=== PATIENT | female | born 1955 | race Two or more races ===

== ENCOUNTER 2020-11-10 12:22 | Outpatient (REF) | payer MEDICAID, SELFPAY ==
--- NOTE | ~2020-11-10 | MM_ITS ---
EXAMINATION: MM SCREENING DIGITAL BREAST TOMOSYNTHESIS, BILATERAL CLINICAL INFORMATION: Screening. Asymptomatic. The lifetime risk of breast cancer based on the Tyrer-Cuzick Model is 5%. COMPARISON: Mammography: 03/19/2019, 03/13/2018, 05/10/2016 TECHNIQUE: Digital breast tomosynthesis is performed in both the craniocaudal and mediolateral oblique views along with computer-aided detection (CAD). Synthesized 2D images are generated from the tomosynthesis. FINDINGS: The breasts are almost entirely fatty (ACR BI-RADS breast composition Category a). There are no significant masses, abnormal calcifications, or other abnormalities. Background stromal markings are stable. No significant changes. MM/MM tomosynthesis screening BI IMPRESSION: No mammographic evidence of malignancy. ASSESSMENT: BI-RADS 1: Negative RECOMMENDATION: Routine annual mammography screening. This patient's information was entered into a reminder system with a target due date for their next mammogram.
== END 2020-11-10 12:23 | disposition home or self-care (01) ==
LOC: HO.MAMMO 12:22
PROVIDERS: Visit Provider Internal Medicine
DX: Z12.31 Encounter for screening mammogram for malignant neoplasm of breast (principal)
CPT/HCPCS: 77063; 77067

== ENCOUNTER → 2020-12-08 13:21 | Outpatient (BNVA) | payer MEDICAID, SELFPAY | PROVIDERS: PCP General Practice; Referring Provider General Practice; Visit Provider Internal Medicine | DX: I25.5 Ischemic cardiomyopathy (principal); I25.10 Atherosclerotic heart disease of native coronary artery without angina pectoris; I10 Essential (primary) hypertension; E11.8 Type 2 diabetes mellitus with unspecified complications; F17.200 Nicotine dependence, unspecified, uncomplicated; Z79.899 Other long term (current) drug therapy; Z71.6 Tobacco abuse counseling | CPT/HCPCS: 93005; 99202 ==

== ENCOUNTER 2021-09-01 10:31 | Day surgery (SDC) | payer MEDICAID, SELFPAY ==
[2021-08-26 10:35] VITALS: BMI 33.2
--- NOTE | 2021-08-31 10:44 | P.CONAN_ITS ---
Documented by User: Alba Torres NP 08/31/21 10:50 HPI - Anesthesia Eval Consult details Narrative: 65yo F for Bilateral Horizontal Eye Muscle Recession/Resection,2 muscles right eye, Left Horizontal eye muscle recession/resection,1 muscle left eye Cardiac cleared at [facility] assuming no new cardiac complaints PCP cleared [facility] Active Problems Active Problems: All Active Problems (Updated 06/16/21 @ 11:41 by Chel Powell, RN) Type 2 diabetes mellitus with unspecified complications (Acute) Essential hypertension (Acute) Atherosclerotic cardiovascular disease (Acute) Ischemic cardiomyopathy (Acute) Past Medical History Medical History (Updated 06/16/21 @ 11:41 by Chel Powell RN) Anemia Asthma Atherosclerotic cardiovascular disease CHF (congestive heart failure) CKD (chronic kidney disease) CVA (cerebral vascular accident) Depression Elevated cholesterol Essential hypertension Ischemic cardiomyopathy Neuropathy Type 2 diabetes mellitus with unspecified complications Vitamin B 12 deficiency Surgical History Surgical History (Updated 06/16/21 @ 11:41 by Chel Powell RN) History of bilateral cataract extraction Hx of cardiac catheterization Social History Social History (Updated 12/08/20 @ 14:46 by Osvaldo Mcbride MD) Are you a primary multi care technician to a significant other at home: No Do you presently have visiting nurse or other home services: No Patient Tobacco Use Status: Former Tobacco user Quit Date: 04/2021 Tobacco use type: Cigarette Use of substances other than those prescribed or required for medical reasons: No Have you been hit, kicked, punched, or otherwise hurt by someone within the past year? If so, by whom?: No Are you DNR?: No Advance Directives: No Advance Directives Information Provided: Yes Advance Directives on File: No Recently lost weight without trying: No Eating poorly because of decreased appetite: No Nutrition Risks: No Nutritional Risk Meds Allergies Allergy/AdvReac Type Severity Reaction Status Date / Time No Known Drug Allergies Allergy Unknown U Verified 06/16/21 11:43 Home Medications Medication Instructions Recorded Confirmed Last Taken Type amlodipine 10 mg 10 mg PO DAILY 12/08/20 08/26/21 Unknown History tablet aspirin 81 mg 81 mg PO DAILY 12/08/20 08/26/21 Unknown History tablet,delayed release (Adult Low Dose Aspirin) atorvastatin 40 40 mg PO DAILY 12/08/20 08/26/21 Unknown History mg tablet bupropion HCl 150 150 mg PO DAILY 12/08/20 08/26/21 Unknown History mg tablet,12 hr sustained-release carvedilol 25 mg 25 mg PO BID 12/08/20 08/26/21 Unknown History tablet escitalopram 5 mg PO DAILY 12/08/20 08/26/21 Unknown History oxalate 5 mg tablet folic acid 1 mg 1 mg PO DAILY 12/08/20 08/26/21 Unknown History tablet furosemide 20 mg 20 mg PO DAILY 12/08/20 08/26/21 Unknown History tablet gabapentin 300 mg 300 mg PO 12/08/20 08/26/21 Unknown History capsule BEDTIME metformin 1,000 1,000 mg PO BID 12/08/20 08/26/21 Unknown History mg tablet ascorbic acid 500 mg PO DAILY 06/16/21 08/26/21 Unknown History (vitamin C) 500 mg tablet (Vitamin C) cyanocobalamin 1,000 mcg PO 06/16/21 08/26/21 Unknown History (vitamin B-12) DAILY 1,000 mcg tablet (Vitamin B-12) docusate sodium 100 mg PO DAILY 06/16/21 08/26/21 Unknown History 100 mg capsule (Colace) ferrous sulfate 325 mg PO DAILY 06/16/21 08/26/21 Unknown History 325 mg (65 mg iron) tablet insulin glargine 20 unit SUBCUT 06/16/21 08/26/21 Unknown History 100 unit/mL (3 QPM mL) subcutaneous pen (Lantus Solostar U-100 Insulin) omeprazole 20 mg 20 mg PO DAILY 06/16/21 08/26/21 Unknown History capsule,delayed release trazodone 50 mg 1 - 2 tab PO 08/26/21 08/26/21 Unknown History tablet BEDTIME Exam Exam Date and Time: August 31, 2021 1044 Height,Weight and Vital Signs: Height 5 ft 1 in Weight 79.832 kg Narrative Narrative: EKG 12/2020 sinus rhythm at 73/Min; no significant ST-T changes and otherwise unremarkable. ECHO 05/2019 Mildly dilated LV with mod LV systolic dysfunction with pseudonormal filling pattern. EF 35-40% Mildly dilated LA Normal cardiac valvular dopplers Normal RV systolic pressure No pericardial effusion Assessment and Plan Assessment Anesthesia Assessment: Chart Reviewed Documented by User: Adrián Balderas MD 09/01/21 12:04 [facility] Past Medical History Medical History (Updated 06/16/21 @ 11:41 by Chel Powell, RN) Anemia Asthma Atherosclerotic cardiovascular disease CHF (congestive heart failure) CKD (chronic kidney disease) CVA (cerebral vascular accident) Depression Elevated cholesterol Essential hypertension Ischemic cardiomyopathy Neuropathy Type 2 diabetes mellitus with unspecified complications Vitamin B 12 deficiency Family History Family history of problems with anesthesia: No Surgical History Surgical History (Updated 06/16/21 @ 11:41 by Chel Powell, JOSEF) History of bilateral cataract extraction Hx of cardiac catheterization History of Problems with Anesthesia: No Social History Social History (Updated 12/08/20 @ 14:46 by Osvaldo Mcbride MD) Are you a primary multi care technician to a significant other at home: No Do you presently have visiting nurse or other home services: No Patient Tobacco Use Status: Former Tobacco user Quit Date: 04/2021 Tobacco use type: Cigarette Use of substances other than those prescribed or required for medical reasons: No Have you been hit, kicked, punched, or otherwise hurt by someone within the past year? If so, by whom?: No Are you DNR?: No Advance Directives: No Advance Directives Information Provided: Yes Advance Directives on File: No Recently lost weight without trying: No Eating poorly because of decreased appetite: No Nutrition Risks: No Nutritional Risk Meds Allergies Allergy/AdvReac Type Severity Reaction Status Date / Time No Known Drug Allergies Allergy Unknown U Verified 06/16/21 11:43 Home Medications Medication Instructions Recorded Confirmed Last Taken Type amlodipine 10 mg 10 mg PO DAILY 12/08/20 08/26/21 Unknown History tablet aspirin 81 mg 81 mg PO DAILY 12/08/20 08/26/21 Unknown History tablet,delayed release (Adult Low Dose Aspirin) atorvastatin 40 40 mg PO DAILY 12/08/20 08/26/21 Unknown History mg tablet bupropion HCl 150 150 mg PO DAILY 12/08/20 08/26/21 Unknown History mg tablet,12 hr sustained-release carvedilol 25 mg 25 mg PO BID 12/08/20 08/26/21 Unknown History tablet escitalopram 5 mg PO DAILY 12/08/20 08/26/21 Unknown History oxalate 5 mg tablet folic acid 1 mg 1 mg PO DAILY 12/08/20 08/26/21 Unknown History tablet furosemide 20 mg 20 mg PO DAILY 12/08/20 08/26/21 Unknown History tablet gabapentin 300 mg 300 mg PO 12/08/20 08/26/21 Unknown History capsule BEDTIME metformin 1,000 1,000 mg PO BID 12/08/20 08/26/21 Unknown History mg tablet ascorbic acid 500 mg PO DAILY 06/16/21 08/26/21 Unknown History (vitamin C) 500 mg tablet (Vitamin C) cyanocobalamin 1,000 mcg PO 06/16/21 08/26/21 Unknown History (vitamin B-12) DAILY 1,000 mcg tablet (Vitamin B-12) docusate sodium 100 mg PO DAILY 06/16/21 08/26/21 Unknown History 100 mg capsule (Colace) ferrous sulfate 325 mg PO DAILY 06/16/21 08/26/21 Unknown History 325 mg (65 mg iron) tablet insulin glargine 20 unit SUBCUT 06/16/21 08/26/21 Unknown History 100 unit/mL (3 QPM mL) subcutaneous pen (Lantus Solostar U-100 Insulin) omeprazole 20 mg 20 mg PO DAILY 06/16/21 08/26/21 Unknown History capsule,delayed release trazodone 50 mg 1 - 2 tab PO 08/26/21 08/26/21 Unknown History tablet BEDTIME Exam Airway Mallampati Class: II TM Dist: >3cm Neck ROM: Full Denture: Upper and Lower Loose/Missing/Broken Teeth: Yes Heart: [id number] Lungs: cta b/l Assessment and Plan Assessment Anesthesia Assessment: Anesthesia Plan Discussed Final Anesthetic Review Family History of Problems with Anesthesia: No History of Problems with Anesthesia: No NPO: Yes ASA Class: III Final Preanesthetic Review: No Changes in Pt Med Stat, Meds/Allgs Chart Reviewed, Consent Obtained/Reviewed and Anes Risks/Benef Reviewed Patient Risk: Intermediate Procedure Risk: Low Assessment/Block/Sedation in SS: Assess/Block/Sedation-SS Anesthetic Plan Anesthetic Plan: GA and Agree w/ Assess. and Plan Disposition: Standard PACU
--- NOTE | 2021-08-31 10:44 | HO.ANESPROP2 ---
Documented by User: Alba Torres NP 08/31/21 10:50 HPI - Anesthesia Eval Consult details Narrative: 65yo F for Bilateral Horizontal Eye Muscle Recession/Resection,2 muscles right eye, Left Horizontal eye muscle recession/resection,1 muscle left eye Cardiac cleared at [facility] assuming no new cardiac complaints PCP cleared [facility] Active Problems Active Problems: All Active Problems (Updated 06/16/21 @ 11:41 by Chel Powell, RN) Type 2 diabetes mellitus with unspecified complications (Acute) Essential hypertension (Acute) Atherosclerotic cardiovascular disease (Acute) Ischemic cardiomyopathy (Acute) Past Medical History Medical History (Updated 06/16/21 @ 11:41 by Chel Powell RN) Anemia Asthma Atherosclerotic cardiovascular disease CHF (congestive heart failure) CKD (chronic kidney disease) CVA (cerebral vascular accident) Depression Elevated cholesterol Essential hypertension Ischemic cardiomyopathy Neuropathy Type 2 diabetes mellitus with unspecified complications Vitamin B 12 deficiency Surgical History Surgical History (Updated 06/16/21 @ 11:41 by Chel Powell RN) History of bilateral cataract extraction Hx of cardiac catheterization Social History Social History (Updated 12/08/20 @ 14:46 by Osvaldo Mcbride MD) Are you a primary home visit field care manager to a significant other at home: No Do you presently have visiting nurse or other home services: No Patient Tobacco Use Status: Former Tobacco user Quit Date: 04/2021 Tobacco use type: Cigarette Use of substances other than those prescribed or required for medical reasons: No Have you been hit, kicked, punched, or otherwise hurt by someone within the past year? If so, by whom?: No Are you DNR?: No Advance Directives: No Advance Directives Information Provided: Yes Advance Directives on File: No Recently lost weight without trying: No Eating poorly because of decreased appetite: No Nutrition Risks: No Nutritional Risk Meds Allergies Allergy/AdvReac Type Severity Reaction Status Date / Time No Known Drug Allergies Allergy Unknown U Verified 06/16/21 11:43 Home Medications Medication Instructions Recorded Confirmed Last Taken Type amlodipine 10 mg tablet 10 mg PO DAILY 12/08/20 08/26/21 Unknown History aspirin 81 mg tablet,delayed 81 mg PO DAILY 12/08/20 08/26/21 Unknown History release (Adult Low Dose Aspirin) atorvastatin 40 mg tablet 40 mg PO DAILY 12/08/20 08/26/21 Unknown History bupropion HCl 150 mg tablet,12 hr 150 mg PO DAILY 12/08/20 08/26/21 Unknown History sustained-release carvedilol 25 mg tablet 25 mg PO BID 12/08/20 08/26/21 Unknown History escitalopram oxalate 5 mg tablet 5 mg PO DAILY 12/08/20 08/26/21 Unknown History folic acid 1 mg tablet 1 mg PO DAILY 12/08/20 08/26/21 Unknown History furosemide 20 mg tablet 20 mg PO DAILY 12/08/20 08/26/21 Unknown History gabapentin 300 mg capsule 300 mg PO BEDTIME 12/08/20 08/26/21 Unknown History metformin 1,000 mg tablet 1,000 mg PO BID 12/08/20 08/26/21 Unknown History ascorbic acid (vitamin C) 500 mg 500 mg PO DAILY 06/16/21 08/26/21 Unknown History tablet (Vitamin C) cyanocobalamin (vitamin B-12) 1,000 mcg PO DAILY 06/16/21 08/26/21 Unknown History 1,000 mcg tablet (Vitamin B-12) docusate sodium 100 mg capsule 100 mg PO DAILY 06/16/21 08/26/21 Unknown History (Colace) ferrous sulfate 325 mg (65 mg 325 mg PO DAILY 06/16/21 08/26/21 Unknown History iron) tablet insulin glargine 100 unit/mL (3 20 unit SUBCUT QPM 06/16/21 08/26/21 Unknown History mL) subcutaneous pen (Lantus Solostar U-100 Insulin) omeprazole 20 mg capsule,delayed 20 mg PO DAILY 06/16/21 08/26/21 Unknown History release trazodone 50 mg tablet 1 - 2 tab PO BEDTIME 08/26/21 08/26/21 Unknown History Exam Exam Date and Time: August 31, 2021 1044 Height,Weight and Vital Signs: Height 5 ft 1 in Weight 79.832 kg Narrative Narrative: EKG 12/2020 sinus rhythm at 73/Min; no significant ST-T changes and otherwise unremarkable. ECHO 05/2019 Mildly dilated LV with mod LV systolic dysfunction with pseudonormal filling pattern. EF 35-40% Mildly dilated LA Normal cardiac valvular dopplers Normal RV systolic pressure No pericardial effusion Assessment and Plan Assessment Anesthesia Assessment: Chart Reviewed Documented by User: Adrián Balderas MD 09/01/21 12:04 [facility] Past Medical History Medical History (Updated 06/16/21 @ 11:41 by Chel Powell, RN) Anemia Asthma Atherosclerotic cardiovascular disease CHF (congestive heart failure) CKD (chronic kidney disease) CVA (cerebral vascular accident) Depression Elevated cholesterol Essential hypertension Ischemic cardiomyopathy Neuropathy Type 2 diabetes mellitus with unspecified complications Vitamin B 12 deficiency Family History Family history of problems with anesthesia: No Surgical History Surgical History (Updated 06/16/21 @ 11:41 by Chel Powell, JOSEF) History of bilateral cataract extraction Hx of cardiac catheterization History of Problems with Anesthesia: No Social History Social History (Updated 12/08/20 @ 14:46 by Osvaldo Mcbride MD) Are you a primary home visit field care manager to a significant other at home: No Do you presently have visiting nurse or other home services: No Patient Tobacco Use Status: Former Tobacco user Quit Date: 04/2021 Tobacco use type: Cigarette Use of substances other than those prescribed or required for medical reasons: No Have you been hit, kicked, punched, or otherwise hurt by someone within the past year? If so, by whom?: No Are you DNR?: No Advance Directives: No Advance Directives Information Provided: Yes Advance Directives on File: No Recently lost weight without trying: No Eating poorly because of decreased appetite: No Nutrition Risks: No Nutritional Risk Meds Allergies Allergy/AdvReac Type Severity Reaction Status Date / Time No Known Drug Allergies Allergy Unknown U Verified 06/16/21 11:43 Home Medications Medication Instructions Recorded Confirmed Last Taken Type amlodipine 10 mg tablet 10 mg PO DAILY 12/08/20 08/26/21 Unknown History aspirin 81 mg tablet,delayed 81 mg PO DAILY 12/08/20 08/26/21 Unknown History release (Adult Low Dose Aspirin) atorvastatin 40 mg tablet 40 mg PO DAILY 12/08/20 08/26/21 Unknown History bupropion HCl 150 mg tablet,12 hr 150 mg PO DAILY 12/08/20 08/26/21 Unknown History sustained-release carvedilol 25 mg tablet 25 mg PO BID 12/08/20 08/26/21 Unknown History escitalopram oxalate 5 mg tablet 5 mg PO DAILY 12/08/20 08/26/21 Unknown History folic acid 1 mg tablet 1 mg PO DAILY 12/08/20 08/26/21 Unknown History furosemide 20 mg tablet 20 mg PO DAILY 12/08/20 08/26/21 Unknown History gabapentin 300 mg capsule 300 mg PO BEDTIME 12/08/20 08/26/21 Unknown History metformin 1,000 mg tablet 1,000 mg PO BID 12/08/20 08/26/21 Unknown History ascorbic acid (vitamin C) 500 mg 500 mg PO DAILY 06/16/21 08/26/21 Unknown History tablet (Vitamin C) cyanocobalamin (vitamin B-12) 1,000 mcg PO DAILY 06/16/21 08/26/21 Unknown History 1,000 mcg tablet (Vitamin B-12) docusate sodium 100 mg capsule 100 mg PO DAILY 06/16/21 08/26/21 Unknown History (Colace) ferrous sulfate 325 mg (65 mg 325 mg PO DAILY 06/16/21 08/26/21 Unknown History iron) tablet insulin glargine 100 unit/mL (3 20 unit SUBCUT QPM 06/16/21 08/26/21 Unknown History mL) subcutaneous pen (Lantus Solostar U-100 Insulin) omeprazole 20 mg capsule,delayed 20 mg PO DAILY 06/16/21 08/26/21 Unknown History release trazodone 50 mg tablet 1 - 2 tab PO BEDTIME 08/26/21 08/26/21 Unknown History Exam Airway Mallampati Class: II TM Dist: >3cm Neck ROM: Full Denture: Upper and Lower Loose/Missing/Broken Teeth: Yes Heart: rrr+[id number] Lungs: cta b/l Assessment and Plan Assessment Anesthesia Assessment: Anesthesia Plan Discussed Final Anesthetic Review Family History of Problems with Anesthesia: No History of Problems with Anesthesia: No NPO: Yes ASA Class: III Final Preanesthetic Review: No Changes in Pt Med Stat, Meds/Allgs Chart Reviewed, Consent Obtained/Reviewed and Anes Risks/Benef Reviewed Patient Risk: Intermediate Procedure Risk: Low Assessment/Block/Sedation in SS: Assess/Block/Sedation-SS Anesthetic Plan Anesthetic Plan: GA and Agree w/ Assess. and Plan Disposition: Standard PACU
[2021-09-01] VITALS (7 sets, daily range): BP systolic 94–156; BP diastolic 54–92; PULSE 72–97; RESP 16–20; TEMP 36.9–37.2; O2SAT 95–99
[2021-09-01 11:30] LABS: Glucose, Whole Blood 154 mg/dL (60-115)
--- NOTE | 2021-09-01 13:21 | P.OPHTHAL_ITS ---
Ophthalmology Operative Note Date of Service: 09/01/21 Narrative: Diagnosis exotropia procedures 1. Recession of right lateral rectus muscle 10 mm 2. Resection of right medial rectus muscle [address] Kendall anesthesia general complications none. The patient was brought to the operating room placed under general anesthesia. The patient's right eye was prepped and draped in the usual sterile ophthalmic fashion. A lid speculum was placed in the right eye and a peritomy was created around the lateral rectus muscle. The muscle was hooked and secured with a double-armed Vicryl suture. It was then disinserted from the globe and reattached to a position 10 mm behind the o riginal insertion. Conjunctiva was closed with interrupted Vicryl sutures. A pretty was then created around the medial rectus muscle. The muscle was hooked and dissected free of its overlying fascial attachments. It was secured with a Jaxson muscle clamp and a 10 mm resection was marked off with cautery. The resection point was then secured with a double-armed Vicryl suture and the muscle was disinserted from the globe. The muscle distal to the resection point was removed with scissors. The resection point was then drawn forward to the original insertion using the Vicryl sutures. Conjunctiva was closed with interrupted 0 Vicryl sutures. The patient was then awoken from general anesthesia and discharged to postoperative recovery in good condition.
== END 2021-09-01 14:46 | disposition home or self-care (01) ==
PROVIDERS: Visit Provider Ophthalmology
PROC: (CPT 67312; principal; 2021-09-01 11:40)
DX: H50.111 Monocular exotropia, right eye (principal); E11.22 Type 2 diabetes mellitus with diabetic chronic kidney disease; I13.10 Hypertensive heart and chronic kidney disease without heart failure, with stage 1 through stage 4 chronic kidney disease, or unspecified chronic kidney disease; I25.10 Atherosclerotic heart disease of native coronary artery without angina pectoris; Z79.4 Long term (current) use of insulin; I25.5 Ischemic cardiomyopathy; N18.30 Chronic kidney disease, stage 3 unspecified; I69.954 Hemiplegia and hemiparesis following unspecified cerebrovascular disease affecting left non-dominant side; Z79.899 Other long term (current) drug therapy; Z87.891 Personal history of nicotine dependence
CPT/HCPCS: 67312; 82947; J2405; J3010

== ENCOUNTER 2021-09-07 13:32 | Outpatient (REF) | payer MEDICAID, SELFPAY ==
--- NOTE | ~2021-09-07 | XR_ITS ---
EXAMINATION: XR SHOULDER, humerus LEFT CLINICAL INFORMATION: Injury COMPARISON: None TECHNIQUE: Frontal and oblique of the left shoulder., 2 views left humerus FINDINGS: There is cortical deformity of the left humeral neck suggesting a fracture, indeterminant age. No dislocation. Degenerative osteoarthritic changes of adjacent acromioclavicular joints. Included adjacent ribs and lungs are normal. XR/XR humerus LT IMPRESSION: Deformity of the left humeral neck suggesting a fracture indeterminant age. May consider correlation with cross-sectional imaging CT scan or MRI for further investigation if clinically indicated. Underlying degenerative osteoarthritis.
--- NOTE | ~2021-09-07 | XR_ITS ---
EXAMINATION: XR SHOULDER, humerus LEFT CLINICAL INFORMATION: Injury COMPARISON: None TECHNIQUE: Frontal and oblique of the left shoulder., 2 views left humerus FINDINGS: There is cortical deformity of the left humeral neck suggesting a fracture, indeterminant age. No dislocation. Degenerative osteoarthritic changes of adjacent acromioclavicular joints. Included adjacent ribs and lungs are normal. XR/XR shoulder LT min 2V IMPRESSION: Deformity of the left humeral neck suggesting a fracture indeterminant age. May consider correlation with cross-sectional imaging CT scan or MRI for further investigation if clinically indicated. Underlying degenerative osteoarthritis.
--- NOTE | ~2021-09-07 | XR_ITS ---
EXAMINATION: XR ELBOW, LEFT CLINICAL INFORMATION: Injury COMPARISON: None TECHNIQUE: AP, lateral, and oblique views of the left elbow. FINDINGS: The bones and soft tissues are normal. No fracture or joint effusion. Alignment is anatomic. Joint spaces are maintained. XR/XR elbow LT 2V IMPRESSION: No radiographic evidence of acute fracture no dislocation.
== END 2021-09-07 13:33 | disposition home or self-care (01) ==
LOC: HO.XRAY 13:32
PROVIDERS: PCP General Practice; Visit Provider General Practice
DX: S49.92XD Unspecified injury of left shoulder and upper arm, subsequent encounter (principal)
CPT/HCPCS: 73030; 73060; 73070

== ENCOUNTER 2021-10-19 14:00 | Outpatient (RCR) | payer MEDICAID, SELFPAY ==
[2021-09-21 15:11] VITALS: BP 144/61; PULSE 73
== END 2021-10-22 08:45 | disposition home or self-care (01) ==
LOC: HO.PT 14:00
PROVIDERS: PCP General Practice; Visit Provider General Practice
DX: S49.92XD Unspecified injury of left shoulder and upper arm, subsequent encounter (principal)
CPT/HCPCS: 97110; 97140; 97162

== ENCOUNTER 2021-12-03 12:46 | Outpatient (RCR) | payer MEDICAID, SELFPAY | END 2021-12-17 14:00 | disposition home or self-care (01) | LOC: HO.OT 12:46 | PROVIDERS: PCP General Practice; Visit Provider General Practice | DX: R29.898 Other symptoms and signs involving the musculoskeletal system (principal) | CPT/HCPCS: 97110; 97165 ==

== ENCOUNTER 2022-09-20 13:27 | Outpatient (REF) | payer MEDICAID, SELFPAY ==
--- NOTE | ~2022-09-20 | MM_ITS ---
EXAMINATION: MM SCREENING DIGITAL BREAST TOMOSYNTHESIS, BILATERAL CLINICAL INFORMATION: Screening. Asymptomatic. The lifetime risk of breast cancer based on the Tyrer-Cuzick Model is 4%. COMPARISON: Mammography: 11/10/2020, 03/19/2019, 03/13/2018 TECHNIQUE: Digital breast tomosynthesis is performed in both the craniocaudal and mediolateral oblique views along with computer-aided detection (CAD). Synthesized 2D images are generated from the tomosynthesis. Additional bilateral MLO views are provided. FINDINGS: The breasts are almost entirely fatty (ACR BI-RADS breast composition Category a). There are no significant masses, abnormal calcifications, or other abnormalities. Background stromal and fibroglandular densities are normal. No developing density or architectural abnormality. The axilla are unremarkable. No significant changes. MM/MM tomosynthesis screening BI IMPRESSION: No mammographic evidence of malignancy. ASSESSMENT: BI-RADS 1: Negative RECOMMENDATION: Routine annual mammography screening. This patient's information was entered into a reminder system with a target due date for their next mammogram.
== END 2022-09-20 13:28 | disposition home or self-care (01) ==
LOC: HO.MAMMO 13:27
PROVIDERS: PCP General Practice; Visit Provider General Practice
DX: Z12.31 Encounter for screening mammogram for malignant neoplasm of breast (principal)
CPT/HCPCS: 77063; 77067

== ENCOUNTER → 2023-02-17 15:14 | Outpatient (REF) | payer OTHER, SELFPAY ==
--- NOTE | 2023-02-17 15:17 | CA_ITS ---
Transthoracic Echocardiogram Patient (Last, First, Middle): Courtney Valdez D Gender: Female Date of : 1955 Age: 67 Procedure Date: 02/17/2023 Procedure Type: Transthoracic Echocardiogram Location: OP Height: 152. cm Weight: 68.04 kg BSA: 1.65 m2 Heart Rate: 64 bpm BP: 145 / 60 mmHg Java Systems Analyst: LIZ Referring MD: Shantell Herr MD Service Greeter: Boogie Manuel MD Symptoms: HX CHF LOW Left Ventricle EF Study Quality: Fair ECG Rhythm: Sinus Conclusions: - 1. Mildly reduced LV ejection fraction 45-50% with impaired relaxation filling pattern 2. Normal cardiac valvular Dopplers 3. Normal RV systolic pressure 4. No gross pericardial effusion Findings Left Ventricle The left ventricle was not well visualized. Normal left ventricular cavity size. There is normal left ventricular wall thickness. The left ventricular systolic function is mildly decreased. The visually estimated ejection fraction is between 45-50%. Regional wall motion abnormalities can not be excluded due to suboptimal endocardial definition. Spectral Doppler is indicative of an impaired relaxation filling pattern. E/E prime ratio is between 8 and 15 consistent with indeterminate filling pressures. Right Ventricle Normal right ventricular cavity size. Atria The left atrium is normal in size. Interatrial shunt cannot be excluded. The right atrium is normal in size. Aortic Valve Normal aortic valve structure and function. There is no aortic valve stenosis. There is no aortic valve regurgitation. Mitral Valve Normal mitral valve structure and function. There is trace mitral valve regurgitation. There is no mitral valve stenosis. Pulmonic Valve The pulmonic valve was not well visualized. Tricuspid Valve Likely normal tricuspid valve structure and function. There is trace tricuspid valve regurgitation. The right ventricular systolic pressure is normal. The right ventricular systolic pressure is 16 mmHg. Normal right atrial pressure. There is no evidence of pulmonary hypertension. Great Vessels All visible segments of the aorta are normal in size. The pulmonary artery was not well visualized. Venous The inferior vena cava is normal in size and collapses greater than 50% with inspiration. Pericardium/Pleural There is no evidence of pericardial effusion. Prior Study Comparison Changes noted compared to prior study dated: 05/09/2019. LV systolic function has improved Measurements 2D Linear Measurements IVSd: 0.85 0.6-0.9/0.6-1.0 cm LVIDd: 5.36 3.9-5.3/4.2-5.9 cm LVIDd Index: 3.25 2.4-3.2/2.2-3.1 cm/m2 LVIDs: 4.26 2.0-3.6 cm LVPWd: 0.86 0.7-1.1 cm LA Diam: 3.40 2.7-3.8/3.0-4.0 cm LAIDs Index: 2.06 1.5-2.3 cm/m2 LV Mass: 208.63 67-162/88-224 g LV Mass Index: 126.44 43-95/49-115 g/m2 LVOT Diam: 2.10 3.0+(-)1.3 cm 2D Systolic Function EF 4C: 38.30 >55% EF 2C: 52.20 >55% EF BiP: 46.50 >55% Mitral Valve MV Pk E: 0.77 MV PK A: 0.75 MV Decel Time: 252.00 E/A: 1.00 E'Lateral: 10.90 E'Medial: 6.74 E/E' Med: 11.40 E/E' Lat: 7.10 PHT: 74.00 MVA PHT: 2.97 Decel [place]: 3.06 Aortic Valve AoV Pk Karl: 1.21 AoV Mn Karl: 0.90 AoV VTI: 0.27 AoV Pk Grad: 6.00 Aov Mn Grad: 3.00 SANAM Cont.VTI: 2.70 LVOT LVOT Pk Karl: 0.92 LVOT Mn Karl: 0.66 LVOT VTI: 0.21 LVOT Pk Grad: 3.00 LVOT Mn Grad: 2.00 LVOT Diam: 2.10 LVOT Area: 3.46 Diastolic Function MV Pk E: 0.77 MV Pk A: 0.75 E/A: 1.00 E'Medial: 6.74 E/E' Med: 11.40 E' Laterial: 10.90 E/E' Lat: 7.10 Right Ventricle TAPSE (mm): 25.70 TVS' Karl: 11.10 Tricuspid Valve TR Pk Karl: 1.80 TR Pk Grad: 13.00 RA Press: 3.00 RVSP: 16.00 Great Vessels Aorta Sinus of Valsalva: 3.30 2.0-3.5 cm Ao Asc: 3.20 2.1-3.4 cm Pulmonary Valve PV Pk Karl: 1.06 Peak PV Grad: 4.00 Updated in Other Vendor System with Status of Final Boogie Manuel MD electronically signed on 02/18/2023 2:40:03 PM with status of Final
== END ==
LOC: HO.CARD 15:14
PROVIDERS: PCP General Practice; Visit Provider General Practice
DX: R93.1 Abnormal findings on diagnostic imaging of heart and coronary circulation (principal)
CPT/HCPCS: 93306

== ENCOUNTER → 2023-02-17 15:17 | Outpatient (BNV) | payer OTHER, SELFPAY | PROVIDERS: PCP General Practice; Visit Provider Internal Medicine Cardiovascular Disease | DX: I50.9 Heart failure, unspecified (principal) | CPT/HCPCS: 93306 ==

== ENCOUNTER 2023-08-16 00:43 | Inpatient (IN) | payer OTHER, SELFPAY ==
[2023-08-16] VITALS (24 sets, daily range): BP systolic 92–164; BP diastolic 45–77; PULSE 61–104; RESP 8–20; TEMP 36–40.1; O2SAT 94–97; BMI 33.9
--- NOTE | ~2023-08-16 | XR_ITS ---
EXAMINATION: XR CHEST CLINICAL INFORMATION: Fever COMPARISON: 03/22/2018 TECHNIQUE: Frontal view of the chest was obtained. FINDINGS: Elevation of the right hemidiaphragm, similar to prior. Cardiac leads overlie the chest. Lungs are clear. No consolidation, pneumothorax, or pleural effusion. Cardiomediastinal silhouette is within normal limits in size. No acute osseous findings. Degenerative spondylosis in the thoracic spine. Old healed left proximal humeral fracture. XR/XR chest 1V IMPRESSION: No acute pulmonary findings.
--- NOTE | ~2023-08-16 | CT_ITS ---
EXAMINATION: CT HEAD WITHOUT CONTRAST (STROKE PROTOCOL) CLINICAL INFORMATION: Stroke protocol. CVA COMPARISON: 07/09/2016 TECHNIQUE: Contiguous axial imaging was performed from the skull base to vertex without intravenous administration of contrast. This CT examination was performed using dose optimization techniques as appropriate, variously including the following: *Automated exposure control *Adjustment of mA and/or kV according to patient size (this includes techniques or standardized protocols for targeted exams where dose is matched to indication/reason for exam; i.e. extremities or head) *Use of iterative reconstruction technique DLP: 703 mGy-cm FINDINGS: Chronic encephalomalacia is again seen in the right frontal lobe posteriorly with involvement of the insular cortex and the anterior aspect of the parietal lobe. Mild ex vacuo dilatation of the right lateral ventricle is again noted. Ventricles otherwise normal in size and configuration. There is no evidence of acute intracranial hemorrhage. No appreciable findings of an acute territorial infarction. Regions of hypoattenuation in the left temporal lobe are favored to correspond to beam hardening artifact. A few foci of hypoattenuation in the subcortical and periventricular white matter are most consistent with chronic microangiopathic changes. No abnormal mass-effect or midline shift is seen. Galvan to white matter differentiation is well preserved. No extra axial fluid collections. Globes appear aphakic. No acute soft tissue findings. Calvarium is intact. Hyperostotic foci are present along the inner table of the anterior calvarium. The sinuses and mastoid air cells are clear. CT/CT head for stroke IMPRESSION: 1. No acute intracranial pathology. 2. Chronic encephalomalacia in the right frontal lobe. This critical result was discussed with Dr. Morocho at 1:04 AM on 08/16/2023. It was ascertained that the content and urgency of the report was understood at the time of direct communication.
--- NOTE | ~2023-08-16 | CT_ITS ---
EXAMINATION: CT ANGIOGRAM HEAD CT ANGIOGRAM NECK CLINICAL INFORMATION: Stroke protocol COMPARISON: [facility]RA 02/04/2016 TECHNIQUE: Test bolus sequences followed by intravenous administration 70 mL of Omnipaque 350. Helical imaging was performed in the axial plane from the aortic arch to the skull vertex. Delayed postcontrast imaging of the head was also performed. The data was processed at the fiber technologist's workstation for generation of MIP sequences. Angled MIPs and volume rendered reformatted images were also generated at an offline 3D workstation. Stenoses are assessed in accordance with Dasilva et al. Quantification of Carotid Stenosis on CT Angiography. AJR 2006. 27(1):13-19. This CT examination was performed using dose optimization techniques as appropriate, variously including the following: *Automated exposure control *Adjustment of mA and/or kV according to patient size (this includes techniques or standardized protocols for targeted exams where dose is matched to indication/reason for exam; i.e. extremities or head) *Use of iterative reconstruction technique DLP: 1494 mGy-cm FINDINGS: CT HEAD: Noncontrast head CT findings discussed separately. No pathologic intra-axial enhancement or regional oligemia. CTA HEAD: Redemonstrated chronically occluded right ICA throughout the reconstituted supraclinoid segment via the [place] of [place]. There is pruning of the distal right MCA territory related to chronic infarct. The remainder of the anterior and posterior circulation remains widely patent. No aneurysms and no high flow vascular malformations. Timing of the contrast bolus allows assessment of the major dural venous sinuses, which all opacify normally CTA NECK: Artifact related to motion and patient's body habitus compromises diagnostic assessment of the cervical arterial vasculature, particularly proximally. Two vessel branching pattern of the arch with left common carotid artery arising from the brachiocephalic trunk. Mild partially calcified atherosclerotic plaque of the aortic arch and great vessel origins. Origins of the great vessels are patent. Nondiagnostic assessment of the proximal right common carotid and subclavian arteries. The common carotid areas are otherwise patent. The right internal carotid artery is occluded throughout the cervical segment. Retropharyngeal course of the bilateral common carotid and proximal left internal and external carotid arteries. Trace calcific plaque of the proximal left ICA without stenosis. The right vertebral artery is dominant. Essentially nondiagnostic assessment of the vertebral artery origins with suspected degree of luminal narrowing on the right. Both vertebral arteries are widely patent throughout their extracranial cervical course. CT NECK: Apparent 1.0 cm hyperdense/enhancing nodular soft tissue along the posterior supraglottic larynx/hypopharynx may be artifactual in etiology however can be correlated with direct inspection to exclude underlying lesion (image 559, series 6). Cervical spondylosis. CT/CT angio head neck stroke IMPRESSION: 1. No progressive steno-occlusive. 2. Chronically occluded right internal carotid artery from its origin throughout the reconstituted supraclinoid segment via the [place] of [place]. 3. Stable pruning of the distal right MCA territory vasculature related to chronic right MCA territory infarct. 4. Apparent 1.0 cm hyperdense/enhancing nodular soft tissue along the posterior supraglottic larynx/hypopharynx may be artifactual in etiology however can be correlated with direct inspection to exclude underlying lesion Findings were communicated to Dr. Lombardo at 1:38 AM on 08/16/2023 and it was ascertained that the content and urgency of the report was understood at the time of direct communication.
--- NOTE | 2023-08-16 00:48 | ED.NEUROSD ---
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 comes here as since midnight patient's noticed she is more confused and had slurred speech complaining of headache per EMS no focal weakness noted except for the residual left-sided weakness on arrival in the ER patient has normal speech more lethargic without any facial asymmetry rectal temperature was 104 degrees Related Data Home Medications Medication Instructions Recorded Confirmed amlodipine 10 mg tablet 10 mg PO DAILY 12/08/20 08/26/21 aspirin 81 mg tablet,delayed 81 mg PO DAILY 12/08/20 08/26/21 release (Adult Low Dose Aspirin) atorvastatin 40 mg tablet 40 mg PO DAILY 12/08/20 08/26/21 bupropion HCl 150 mg tablet,12 hr 150 mg PO DAILY 12/08/20 08/26/21 sustained-release carvedilol 25 mg tablet 25 mg PO BID 12/08/20 08/26/21 escitalopram oxalate 5 mg tablet 5 mg PO DAILY 12/08/20 08/26/21 folic acid 1 mg tablet 1 mg PO DAILY 12/08/20 08/26/21 furosemide 20 mg tablet 20 mg PO DAILY 12/08/20 08/26/21 gabapentin 300 mg capsule 300 mg PO BEDTIME 12/08/20 08/26/21 metformin 1,000 mg tablet 1,000 mg PO BID 12/08/20 08/26/21 ascorbic acid (vitamin C) 500 mg 500 mg PO DAILY 06/16/21 08/26/21 tablet (Vitamin C) cyanocobalamin (vitamin B-12) 1,000 mcg PO DAILY 06/16/21 08/26/21 1,000 mcg tablet (Vitamin B-12) docusate sodium 100 mg capsule 100 mg PO DAILY 06/16/21 08/26/21 (Colace) ferrous sulfate 325 mg (65 mg 325 mg PO DAILY 06/16/21 08/26/21 iron) tablet insulin glargine 100 unit/mL (3 20 unit subcut QPM 06/16/21 08/26/21 mL) subcutaneous pen (Lantus Solostar U-100 Insulin) omeprazole 20 mg capsule,delayed 20 mg PO DAILY 06/16/21 08/26/21 release trazodone 50 mg tablet 1 - 2 tab PO BEDTIME 08/26/21 08/26/21 Allergies Allergy/AdvReac Type Severity Reaction Status Date / Time No Known Drug Allergies Allergy Unknown U Verified 06/16/21 11:43 Review of Systems Review of Systems: Yes Unobtainable due to mental status PMFSH Past Medical History Onset Date is defined in the Problem List Problems that require an onset date and time if occurred within 24 hrs of arrival to the ED Aortic Dissection and Rupture; Neurologic impairment; Cardiopulmonary Arrest; Endotracheal Intubation; Insertion or Replacement of Mechanical Circulatory Assist Device Medical History Anemia Vitamin B 12 deficiency Neuropathy CHF (congestive heart failure) Elevated cholesterol Depression CVA (cerebral vascular accident) CKD (chronic kidney disease) Asthma Type 2 diabetes mellitus with unspecified complications Essential hypertension Atherosclerotic cardiovascular disease Ischemic cardiomyopathy Surgical History History of bilateral cataract extraction Hx of cardiac catheterization Social History Social History Are you a primary weekend caregiver to a significant other at home: No Do you presently have visiting nurse or other home services: No Alcohol intake: former Patient Tobacco Use Status: Former Tobacco user Quit Date: 04/2021 Tobacco use type: Cigarette Smoked in Last 30 Days: No Use of substances other than those prescribed or required for medical reasons: No Advance Directives: No Advance Directives Information Provided: No Physical Exam Vital Signs: Vital Signs: Last Vital Signs Temp 100.4 F 08/16/23 04:26 Pulse 86 08/16/23 04:26 Resp 20 08/16/23 04:26 BP 131/76 08/16/23 04:26 Pulse Ox 97 08/16/23 04:26 O2 Del Method Room Air 08/16/23 04:26 BMI result Body Mass Index 33.9 Appearance: Alert. And awake x2-3. No acute distress. Eyes: PERRLA, No Nystagmus ENT: Pharynx normal. Oral Mucosa moist Neck: Normal inspection. Neck supple. CVS: Normal heart rate and rhythm. Pulses normal. Respiratory: No respiratory distress. Equal air entry bilateral, no wheezing/rales/rhonchi Abdomen: Soft and nontender. Bowel sounds are present, no mass palpable, no CVA tenderness Skin: Skin warm and dry. Normal skin color. Normal skin turgor. Extremities: No lower extremity edema. No calf tenderness Neuro: Oriented X 2-3 no dysarthria noted. Residual left-sided weakness with flexion contracture of the left upper extremity Medications Administered Discontinued Medications Generic Name Dose Route Start Last Admin Trade Name Freq PRN Reason Stop Dose Admin Acetaminophen 975 mg 08/16/23 01:31 08/16/23 01:45 Acetaminophen 325 Mg Tablet PO 08/16/23 01:32 975 mg ONCE ONE Administration Sodium Chloride 1,000 mls @ 999 mls/hr 08/16/23 01:46 08/16/23 02:53 Ns IV 08/16/23 02:46 Infused .Q1H1M ONE Infusion Ceftriaxone Sodium 1 gm/ 50 mls @ 100 mls/hr 08/16/23 01:46 08/16/23 02:28 Sodium Chloride IV 08/16/23 02:15 Infused ONCE ONE Infusion Sodium Chloride 3,000 mls @ 1,000 mls/hr 08/16/23 01:59 08/16/23 02:34 Ns IV 08/16/23 04:58 1,000 mls/hr .Q3H STA Administration Ibuprofen 600 mg 08/16/23 01:45 08/16/23 01:55 Ibuprofen Oral Susp 200 Mg/10 Ml Oral.Susp PO 08/16/23 01:46 600 mg ONCE ONE Administration Iohexol 70 ml 08/16/23 01:27 08/16/23 01:28 Iohexol 350 Mg/Ml 100 Ml Infus..Btl IV 08/16/23 01:28 70 ml ONCE ONE Administration Medical Decision Making Medical Decision Making MDM Narrative: Per EMS patient was acutely confused with right-sided headache and slurred speech at midnight workup was negative for acute CVA no focal deficit noticed other than old residual left-sided weakness during stay in the ER patient became more alert was febrile with 104 temperature lactic acid of 3 normal white count urine was infected likely the cause of metabolic encephalopathy from the UTI now patient states that patient fell earlier today and been falling very often last night she fell without using the cane when she was in the kitchen with a wet floor not sure about confusion. Denies any urinary complaints no flank pain no nausea no vomiting. Will admit patient for UTI with sepsis with metabolic encephalopathy Patient received IV fluids 30 cc/kilogram and IV antibiotic Rocephin pending blood and urine culture Differential Diagnosis Differential Diagnoses: The differential diagnosis associated with the presentation includes Sepsis/metabolic encephalopathy/CVA/TIA/seizure/AMS/UTI Admission/Observation Consideration of admission/observation: Escalation of care including admission/observation considered Consult Healthcare Provider Management of the patient was discussed with: Hospitalist Lab Data [facility] Lab Attestation statement: I reviewed the patient's lab results. 08/16/23 01:08 08/16/23 01:08 Labs: Lab Results 08/16/23 08/16/23 08/16/23 Range/Units 00:48 01:08 01:16 WBC 8.5 (4.8-10.8) X10*3/uL RBC 3.86 L (4.20-5.50) X10*6/uL Hgb 11.3 L (12.0-16.0) g/dl Hct 34.6 L (37.0-47.0) % MCV 89.6 (80.0-98.0) fL MCH 29.3 (27.0-33.0) pg MCHC 32.7 (31.0-35.0) g/dl RDW 13.1 (11.0-16.0) % Plt Count 254 (160-400) X10*3/uL MPV 9.8 (9.4-12.3) fL Immature Gran % (Auto) 0.2 (0.0-0.4) % Neut % (Auto) 91.9 H (45-73) % Lymph % (Auto) 5.1 L (20-40) % [place] % (Auto) 2.0 (2-11) % Eos % (Auto) 0.7 (0-4) % Baso % (Auto) 0.1 (0-2) % Lymph # (Auto) 0.4 L (1.2-4.9) X10*3/uL [place] # (Auto) 0.2 (0.1-1.2) X10*3/uL Eos # (Auto) 0.1 (0.0-0.4) X10*3/uL Baso # (Auto) 0.0 (0.0-0.2) X10*3/uL Abs Immat Gran (auto) 0.02 (0.00-0.03) X10*3/uL Absolute Neuts (auto) 7.8 (2.0-8.3) x10*3/uL Absolute Nucleated RBC 0.000 (0.0-0.012) X10*3/uL Nucleated RBC % (auto) 0.0 (0.0-0.2) /100WBC Smear Tech's Comments VERIFIED PT 13.2 (11.1-13.3) SEC Whole Blood PT 12.9 (11.1-13.5) sec INR 1.1 (0.9-1.1) Whole Blood INR 1.1 (0.9-1.1) APTT 28.1 (26.0-36.4) SEC VBG pH 7.41 (7.32-7.43) VBG pCO2 39 mmHg VBG pO2 53 mmHg VBG HCO3 25 (22-26) mmol/L VBG O2 Saturation 82.0 % VBG Base Excess 1.1 mmol/L Sodium 140 (135-145) mmol/L Potassium 4.2 (3.3-5.1) mmol/L Chloride 101 (96-108) mmol/L Carbon Dioxide 25 (22-29) mmol/L Anion Gap 18 (12-20) BUN 14 (9-16) mg/dL Creatinine 1.06 (0.5-1.4) mg/dL Estim Creat Clear Calc 55.2 Estimated GFR 52 POC Glucose 167 H (60-115) mg/dL Random Glucose 182 H (60-115) mg/dL Lactic Acid (0.5-2.0) mmol/L Calcium 8.9 (8.4-10.2) mg/dL Total Creatine Kinase 49 (26-140) U/L Troponin I High Sens 4.5 (<3.5-17.0) ng/L Urine Color Urine Appearance Urine pH (5.0-9.0) Ur Specific [place] (1.005-1.025) Urine Protein (Neg-Trace) mg/dL Urine Glucose (UA) (Negative) mg/dL Urine Ketones (Negative) mg/dL Urine Blood (Negative) Urine Nitrite (Negative) Ur Leukocyte Esterase (Negative) Urine RBC (0-2) /HPF Urine WBC (0-5) /HPF Ur Squamous Epith Cells (0-2) /HPF Urine Bacteria (None Seen) Hyaline Casts (0-2) /LPF Influenza Type A (PCR) (Negative) Influenza Type B (PCR) (Negative) RSV RNA Qual (PCR) (Negative) SARS-CoV-2 RNA (RT-PCR) (Negative) 08/16/23 08/16/23 Range/Units 01:37 02:42 WBC (4.8-10.8) X10*3/uL RBC (4.20-5.50) X10*6/uL Hgb (12.0-16.0) g/dl Hct (37.0-47.0) % MCV (80.0-98.0) fL MCH (27.0-33.0) pg MCHC (31.0-35.0) g/dl RDW (11.0-16.0) % Plt Count (160-400) X10*3/uL MPV (9.4-12.3) fL Immature Gran % (Auto) (0.0-0.4) % Neut % (Auto) (45-73) % Lymph % (Auto) (20-40) % [place] % (Auto) (2-11) % Eos % (Auto) (0-4) % Baso % (Auto) (0-2) % Lymph # (Auto) (1.2-4.9) X10*3/uL [place] # (Auto) (0.1-1.2) X10*3/uL Eos # (Auto) (0.0-0.4) X10*3/uL Baso # (Auto) (0.0-0.2) X10*3/uL Abs Immat Gran (auto) (0.00-0.03) X10*3/uL Absolute Neuts (auto) (2.0-8.3) x10*3/uL Absolute Nucleated RBC (0.0-0.012) X10*3/uL Nucleated RBC % (auto) (0.0-0.2) /100WBC Smear Tech's Comments PT (11.1-13.3) SEC Whole Blood PT (11.1-13.5) sec INR (0.9-1.1) Whole Blood INR (0.9-1.1) APTT (26.0-36.4) SEC VBG pH (7.32-7.43) VBG pCO2 mmHg VBG pO2 mmHg VBG HCO3 (22-26) mmol/L VBG O2 Saturation % VBG Base Excess mmol/L Sodium (135-145) mmol/L Potassium (3.3-5.1) mmol/L Chloride (96-108) mmol/L Carbon Dioxide (22-29) mmol/L Anion Gap (12-20) BUN (9-16) mg/dL Creatinine (0.5-1.4) mg/dL Estim Creat Clear Calc Estimated GFR POC Glucose (60-115) mg/dL Random Glucose (60-115) mg/dL Lactic Acid 3.0 H* (0.5-2.0) mmol/L Calcium (8.4-10.2) mg/dL Total Creatine Kinase (26-140) U/L Troponin I High Sens (<3.5-17.0) ng/L Urine Color Yellow Urine Appearance Clear Urine pH 6.0 (5.0-9.0) Ur Specific [place] 1.025 (1.005-1.025) Urine Protein 30 (1+) H (Neg-Trace) mg/dL Urine Glucose (UA) Negative (Negative) mg/dL Urine Ketones Negative (Negative) mg/dL Urine Blood Small (1+) H (Negative) Urine Nitrite Positive H (Negative) Ur Leukocyte Esterase Moderate (2+) H (Negative) Urine RBC 0-2 (0-2) /HPF Urine WBC 11-20 H (0-5) /HPF Ur Squamous Epith Cells 6-10 (0-2) /HPF Urine Bacteria 4+ (None Seen) Hyaline Casts 0-2 (0-2) /LPF Influenza Type A (PCR) NEGATIVE (Negative) Influenza Type B (PCR) NEGATIVE (Negative) RSV RNA Qual (PCR) NEGATIVE (Negative) SARS-CoV-2 RNA (RT-PCR) NEGATIVE (Negative) Independent Interpretation I performed an independent interpretation of an: EKG Interpretation: Normal sinus rhythm heart rate 97 beats per minute no acute ST T wave changes slightly prolonged QTC of 487 millisecond no acute ischemia NIH Stroke Scale Internal: Initial- Upon Arrival Level of Consciousness: Alert Level of Consciousness Questions: Answers both questions correctly Level of Consciousness Commands: Performs both tasks correctly Best Gaze: Normal Visual: No visual loss Facial Palsy: Normal Motor Arm (Right): No drift Motor Arm (Left): Some effort against gravity Motor Leg (Right): Some effort against gravity Motor Leg (Left): No drift Limb Ataxia: Absent Sensory: Normal Best Language: No aphasia Dysarthia: Normal Extinction and Inattention: No abnormality Score: 4 Critical Care Time Critical Care Time Critical Care Time: Yes Total Critical Care Time: 55 Attestation: The patient was critically ill with a high probability of imminent or life threatening deterioration. I spent greater than 60 ???minutes of discontinuous time evaluating the patient,delivering critical care at the bedside, discussing and evaluating pertinent data with consultants. Critical care time does not include time spent performing separately billable procedures or teaching. Total time spent performing critical care was ?55??minutes. Discharge Plan Discharge Clinical Impression: Acute metabolic encephalopathy, Acute UTI, Sepsis Patient Disposition: Admitted As Inpatient
--- NOTE | 2023-08-16 00:49 | ECG_ITS ---
Test Reason : ? STROKE Blood Pressure : / mmHG Vent. Rate : 097 BPM Atrial Rate : 097 BPM P-R Int : 122 ms QRS Dur : 086 ms QT Int : 384 ms P-R-T Axes : 051 -19 056 degrees QTc Int : 487 ms Normal sinus rhythm Nonspecific T wave abnormality Prolonged QT Abnormal ECG When compared with ECG of 02-MAR-2020 14:15, Vent. rate has increased BY 35 BPM Nonspecific T wave abnormality no longer evident in Inferior leads T wave inversion no longer evident in Lateral leads QT has lengthened Referred By: Savage Townsend Electronically Signed By:JADE RUSSO MD
[2023-08-16 00:51] LABS: Prothrombin Time Whole Bld POC 12.9 sec (11.1-13.5); ~PT, ~INR - Anti Coag Clinic 1.1 (0.9-1.1)
[2023-08-16 00:52] LABS: Glucose, Whole Blood 167 mg/dL (60-115)
--- NOTE | 2023-08-16 01:05 | MHC.EDTECH ---
Patient came in by ambulance,POC and Stroke INR taken, and RN aware of results. Patient in CT-Scan at this time
[2023-08-16 01:17] LABS: Stroke Lab Use COMPLETE
[2023-08-16 01:19] LABS: Basophils Percent Auto 0.1 % (0-2); Eosinophils Absolute Auto 0.1 X10*3/uL (0.0-0.4); Eosinophils Percent Auto 0.7 % (0-4); Hematocrit 34.6 % (37.0-47.0); Hemoglobin 11.3 g/dl (12.0-16.0); Imm Gran Abs Auto 0.02 X10*3/uL (0.00-0.03); Imm Gran Pct Auto 0.2 % (0.0-0.4); Lymphocytes Absolute Auto 0.4 X10*3/uL (1.2-4.9); Lymphocytes Percent Auto 5.1 % (20-40); MANUAL DIFF FLAG SCAN; Mean Corpuscular HGB Conc 32.7 g/dl (31.0-35.0); Mean Corpuscular Hemoglobin 29.3 pg (27.0-33.0); Mean Corpuscular Volume 89.6 fL (80.0-98.0); Mean Platelet Volume 9.8 fL (9.4-12.3); Monocytes Absolute Auto 0.2 X10*3/uL (0.1-1.2); Neutrophils Absolute Auto 7.8 x10*3/uL (2.0-8.3); Neutrophils Percent Auto 91.9 % (45-73); Platelet Count 254 X10*3/uL (160-400); Red Blood Count 3.86 X10*6/uL (4.20-5.50); Red Cell Distribution Width 13.1 % (11.0-16.0); SCAN SMEAR FLAG 1; White Blood Count 8.5 X10*3/uL (4.8-10.8)
[2023-08-16 01:24] LABS: VBG Base Excess 1.1 mmol/L; VBG HCO3 25 mmol/L (22-26); VBG pCO2 39 mmHg; VBG pH 7.41 (7.32-7.43); VBG pO2 53 mmHg
[2023-08-16 01:24] LABS: INTERNATIONAL NORM RATIO 1.1 (0.9-1.1); Prothrombin Time 13.2 SEC (11.1-13.3)
[2023-08-16 01:27] LABS: Partial Thromboplastin Time 28.1 SEC (26.0-36.4)
[2023-08-16] MEDS: iohexoL 350 MG/ML 100 ML INFUS..BTL 70 ML IV (01:28)
--- NOTE | 2023-08-16 01:28 | PC.NURSE ---
Patient BIBA from home for evaluation of possible stroke. Patient's last well known time around midnight. Patient reported to her sudden onset of headache, he noted her speech became slurred/garbled with right sided weakness. Patient has history of CVA with left sided deficits 10 years ago. Patient is not on blood thinners. ED provider assessed patient, POC obtained 267, PT/INR 12.9, 1.1. Patient taken to CT scan, 20 G IV line placed in R AC, stroke labs sent to lab for processing.
[2023-08-16 01:35] LABS: Anion Gap 18 (12-20); Blood Urea Nitrogen 14 mg/dL (9-16); Calcium 8.9 mg/dL (8.4-10.2); Carbon Dioxide 25 mmol/L (22-29); Chloride 101 mmol/L (96-108); Creatinine Clr Calc Pharmacy 55.2; Estimated Glomerular Filt Rate 52; Glucose Random 182 mg/dL (60-115); Potassium 4.2 mmol/L (3.3-5.1); Sodium 140 mmol/L (135-145)
[2023-08-16 01:36] LABS: SLIDE REVIEW VERIFIED
[2023-08-16 01:39] LABS: Troponin-I High Sensitivity 4.5 ng/L (<3.5-17.0)
[2023-08-16] MEDS: Acetaminophen 325 MG TABLET 975 MG PO (01:45)
[2023-08-16] MEDS: Ibuprofen Oral Susp 200 MG/10 ML ORAL.SUSP 600 MG PO (01:55)
[2023-08-16] MEDS: cefTRIAXone sodium 1 GM in 0.9 % Sodium Chloride 50 ML IV ×2 (01:56→21:01)
[2023-08-16] MEDS: 0.9 % Sodium Chloride 1,000 ML 999 ML IV (01:56)
--- NOTE | 2023-08-16 02:01 | MHC.EDTECH ---
Patient was changed into hospital attire,placed on the tool and die maker,EKG was taken and signed by provider. Vitals taken and rectal temp is 104.1, RN at bedside and is aware. Pure-wick placed to keep patient clean and dry, continuous rectal temp sensor placed, patient tolerated well. Blood cultures obtained and sent to lab.
[2023-08-16 02:24] LABS: Influenza A PCR NEGATIVE (Negative); Influenza B PCR NEGATIVE (Negative); Resp Syncy Virus RNA Qual PCR NEGATIVE (Negative); SARS COV2 PCR INHOUSE NEGATIVE (Negative)
[2023-08-16] MEDS: 0.9 % Sodium Chloride 3,000 ML 1000 ML IV (02:34)
[2023-08-16 02:48] LABS: Appearance Urine Clear; Color Urine Yellow; Glucose Urine UA Negative (Negative); Leukocyte Esterase Urine Moderate (2+) (Negative); Nitrite Urine Positive (Negative); Specific Gravity - Urine 1.025 (1.005-1.025); UMIC TRIGGER UACC YES; Urine Blood Small (1+) (Negative); Urine Ketones Negative (Negative); Urine Protein 30 (1+) mg/dL (Neg-Trace)
[2023-08-16 03:07] LABS: Bacteria Urine 4+ (None Seen); Hyaline Casts Urine 0-2 /LPF (0-2); RBC Urine 0-2 /HPF (0-2); UACC Culture Trigger YES
--- NOTE | 2023-08-16 03:39 | MHC.EDTECH ---
Hourly rounds and vitals completed,patient's temp is 101.5 RN is aware
[2023-08-16 03:43] LABS: Reflex Lactate? Lactic Acid Added
--- NOTE | 2023-08-16 04:26 | PC.NURSE ---
Patient fed with sugar free apple sauce.
--- NOTE | 2023-08-16 05:21 | PC.NURSE ---
Per Dr. Rashawn lea, lactic acid drawn 05:25 am after fluid completion.
--- NOTE | 2023-08-16 05:38 | P.HPHOSP_ITS ---
History of Present Illness Date of Service: 08/16/23 Attending physician on admission: Fredis Cannon Chief Complaint: Headache, slurred speech and right sided weakness since this evening Patient is a 67 year old obese female with past medical history of type 2 diabetes mellitus, hypertension, hyperlipidemia, and ischemic cardiomyopathy who was brought to the emergency room from home by EMS for evaluation after she complained of sudden onset of headaches, slurred/garbled speech, and right sided weakness. She has fallen twice over the past 2 days but denies any injuries. When she came to the emergency room, she was noted to be confused and initial vital signs were notable for a fever of 104 F and tachycardia with a heart rate of 99 bpm. Blood work done was notable for elevated serum lactic acid at 3.0 (follow up at 2.9). Urinalysis was notable for positive urine nitrite with 2+ leukocyte esterase, 11-20 WBC/HPF and 4+ bacteria. Review of Systems 2 Review of Systems: Yes all other systems are reviewed and are negative [facility] Medical History Anemia Vitamin B 12 deficiency Neuropathy CHF (congestive heart failure) Elevated cholesterol Depression CVA (cerebral vascular accident) CKD (chronic kidney disease) Asthma Type 2 diabetes mellitus with unspecified complications Essential hypertension Atherosclerotic cardiovascular disease Ischemic cardiomyopathy Functional capacity: uses cane/walker Pertinent family history: Unavailable at this time. Surgical History History of bilateral cataract extraction Hx of cardiac catheterization Social History Are you a primary summer child caregiver to a significant other at home: No Do you presently have visiting nurse or other home services: No Alcohol intake: former Patient Tobacco Use Status: Former Tobacco user Quit Date: 04/2021 Tobacco use type: Cigarette Meds Allergies Allergy/AdvReac Type Severity Reaction Status Date / Time No Known Drug Allergies Allergy Unknown U Verified 06/16/21 11:43 Active Medications: Current Medications Acetaminophen (Acetaminophen 325 Mg Tablet) 650 mg PO Q6H PRN PRN Reason: Pain, Mild (Pain Scale 1-3) Al Hydroxide/Mg Hydroxide (Magnesium Hydrox/Alum Hydrox 30 Ml Oral.Susp) 30 ml PO Q4H PRN PRN Reason: Heartburn/Nausea Amlodipine Besylate (Amlodipine Besylate 10 Mg Tablet) 10 mg PO DAILY [facility]; Protocol Ascorbic Acid (Ascorbic Acid 500 Mg Tablet) 500 mg PO DAILY [facility] Docusate Sodium (Docusate Sodium 100 Mg Capsule) 100 mg PO BID [facility] Enoxaparin Sodium (Enoxaparin Sodium 40 Mg/0.4 Ml Syringe) 40 mg SUBCUT Q24H [facility] Melatonin (Melatonin 3 Mg Tablet) 6 mg PO BEDTIME PRN PRN Reason: Insomnia Ondansetron HCl (Ondansetron Hcl 4 Mg/2 Ml Vial) 4 mg IVPUSH Q8H PRN PRN Reason: Nausea and Vomiting Sodium Chloride (0.9 % Sodium Chloride Flush 3 Ml Syringe) 3 ml IVFLUSH QSHIFT [facility] Home Medications Medication Instructions Recorded Confirmed Last Taken Type amlodipine 10 mg tablet 10 mg PO DAILY 12/08/20 08/16/23 Unknown History aspirin 81 mg tablet,delayed 81 mg PO DAILY 12/08/20 08/16/23 Unknown History release (Adult Low Dose Aspirin) atorvastatin 40 mg tablet 40 mg PO DAILY 12/08/20 08/16/23 Unknown History bupropion HCl 150 mg tablet,12 hr 150 mg PO DAILY 12/08/20 08/16/23 Unknown History sustained-release carvedilol 25 mg tablet 25 mg PO BID 12/08/20 08/16/23 Unknown History escitalopram oxalate 5 mg tablet 5 mg PO DAILY 12/08/20 08/16/23 Unknown History folic acid 1 mg tablet 1 mg PO DAILY 12/08/20 08/16/23 Unknown History furosemide 20 mg tablet 20 mg PO DAILY 12/08/20 08/16/23 Unknown History gabapentin 300 mg capsule 300 mg PO BEDTIME 12/08/20 08/16/23 Unknown History metformin 1,000 mg tablet 1,000 mg PO BID 12/08/20 08/16/23 Unknown History ascorbic acid (vitamin C) 500 mg 500 mg PO DAILY 06/16/21 08/16/23 Unknown History tablet (Vitamin C) cyanocobalamin (vitamin B-12) 1,000 mcg PO DAILY 06/16/21 08/16/23 Unknown History 1,000 mcg tablet (Vitamin B-12) docusate sodium 100 mg capsule 100 mg PO DAILY 06/16/21 08/16/23 Unknown History (Colace) ferrous sulfate 325 mg (65 mg 325 mg PO DAILY 06/16/21 08/16/23 Unknown History iron) tablet insulin glargine 100 unit/mL (3 28 unit subcut QPM 06/16/21 08/16/23 Unknown History mL) subcutaneous pen (Lantus Solostar U-100 Insulin) omeprazole 20 mg capsule,delayed 20 mg PO DAILY 06/16/21 08/16/23 Unknown History release Physical Exam 2 Vital Signs and Narrative: Vital Signs: Last Vital Signs Temp 99.5 F 08/16/23 05:25 Pulse 78 08/16/23 05:25 Resp 20 08/16/23 05:25 BP 133/67 08/16/23 05:25 Pulse Ox 95 08/16/23 05:25 O2 Del Method Room Air 08/16/23 05:10 BMI result Body Mass Index 33.9 General: Ill appearing obese female in bed. Awake, alert and oriented x 4. No apparent distress Eyes: No pallor or jaundice. PERRLA, EOMI HENT: Moist oral mucus membranes. No oropharyngeal lesions. Neck: Supple. No cervical adenopathy. No JVD Cardiovascular: Regular rate and rhythm. Normal heart sounds. No murmurs, rubs or gallops. No JVD. No peripheral edema. Respiratory: Normal respiratory effort with no accessory muscle use. CTAB. Gastrointestinal: Abdomen is soft, non-tender, non-distended. NABS. No hepatosplenomegaly Extremities: No edema. No calf tenderness. Good peripheral pulses Skin: Warm/Dry. No rashes. No mottling. Capillary refill is < 2 seconds Neurological: AAOx4. Intact speech & cognition. Normal gait & balance. CN II - XII grossly intact but not individually tested. No motor or sensory deficits Hematologic: No bleeding. No ecchymosis. No swollen or tender lymph nodes. Psychiatric: Cooperative. Appropriate mood and affect. Results Labs 08/16/23 01:08 08/16/23 01:08 Labs: Laboratory Results - last 24 hr 08/16/23 08/16/23 08/16/23 00:48 01:08 01:16 MCV 89.6 MCH 29.3 MCHC 32.7 RDW 13.1 Plt Count 254 MPV 9.8 Immature Gran % (Auto) 0.2 Neut % (Auto) 91.9 H Lymph % (Auto) 5.1 L Swisher % (Auto) 2.0 Eos % (Auto) 0.7 Baso % (Auto) 0.1 Lymph # (Auto) 0.4 L Swisher # (Auto) 0.2 Eos # (Auto) 0.1 Baso # (Auto) 0.0 Abs Immat Gran (auto) 0.02 Absolute Neuts (auto) 7.8 Absolute Nucleated RBC 0.000 Nucleated RBC % (auto) 0.0 Smear Tech's Comments VERIFIED PT 13.2 Whole Blood PT 12.9 INR 1.1 Whole Blood INR 1.1 APTT 28.1 VBG pH 7.41 VBG pCO2 39 VBG pO2 53 VBG HCO3 25 VBG O2 Saturation 82.0 VBG Base Excess 1.1 Anion Gap 18 Estim Creat Clear Calc 55.2 Estimated GFR 52 POC Glucose 167 H Random Glucose 182 H Lactic Acid Calcium 8.9 Total Creatine Kinase 49 Urine Color Urine Appearance Urine pH Ur Specific [place] Urine Protein Urine Glucose (UA) Urine Ketones Urine Blood Urine Nitrite Ur Leukocyte Esterase Urine RBC Urine WBC Ur Squamous Epith Cells Urine Bacteria Hyaline Casts Influenza Type A (PCR) Influenza Type B (PCR) RSV RNA Qual (PCR) SARS-CoV-2 RNA (RT-PCR) 08/16/23 08/16/23 01:37 02:42 MCV MCH MCHC RDW Plt Count MPV Immature Gran % (Auto) Neut % (Auto) Lymph % (Auto) Swisher % (Auto) Eos % (Auto) Baso % (Auto) Lymph # (Auto) Swisher # (Auto) Eos # (Auto) Baso # (Auto) Abs Immat Gran (auto) Absolute Neuts (auto) Absolute Nucleated RBC Nucleated RBC % (auto) Smear Tech's Comments PT Whole Blood PT INR Whole Blood INR APTT VBG pH VBG pCO2 VBG pO2 VBG HCO3 VBG O2 Saturation VBG Base Excess Anion Gap Estim Creat Clear Calc Estimated GFR POC Glucose Random Glucose Lactic Acid 3.0 H* Calcium Total Creatine Kinase Urine Color Yellow Urine Appearance Clear Urine pH 6.0 Ur Specific [place] 1.025 Urine Protein 30 (1+) H Urine Glucose (UA) Negative Urine Ketones Negative Urine Blood Small (1+) H Urine Nitrite Positive H Ur Leukocyte Esterase Moderate (2+) H Urine RBC 0-2 Urine WBC 11-20 H Ur Squamous Epith Cells 6-10 Urine Bacteria 4+ Hyaline Casts 0-2 Influenza Type A (PCR) NEGATIVE Influenza Type B (PCR) NEGATIVE RSV RNA Qual (PCR) NEGATIVE SARS-CoV-2 RNA (RT-PCR) NEGATIVE ECG ECG interpretation date: 08/16/23 ECG interpretation time: 05:56 Interpretation: NSR at 97 bpm with normal axis and non-specific TW abnormality Imaging Radiologist's Impressions: Impressions Head CT 08/16/23 00:55 IMPRESSION: 1. No acute intracranial pathology. 2. Chronic encephalomalacia in the right frontal lobe. This critical result was discussed with Dr. Morocho at 1:04 AM on 08/16/2023. It was ascertained that the content and urgency of the report was understood at the time of direct communication. Head/Neck CTA 08/16/23 01:20 IMPRESSION: 1. No progressive steno-occlusive. 2. Chronically occluded right internal carotid artery from its origin throughout the reconstituted supraclinoid segment via the [place] of [place]. 3. Stable pruning of the distal right MCA territory vasculature related to chronic right MCA territory infarct. 4. Apparent 1.0 cm hyperdense/enhancing nodular soft tissue along the posterior supraglottic larynx/hypopharynx may be artifactual in etiology however can be correlated with direct inspection to exclude underlying lesion Findings were communicated to Dr. Lombardo at 1:38 AM on 08/16/2023 and it was ascertained that the content and urgency of the report was understood at the time of direct communication. Chest X-Ray 08/16/23 02:15 IMPRESSION: No acute pulmonary findings. Assessment and Plan (1) Severe sepsis: Status: Acute (2) Acute UTI: Status: Acute (3) Acute metabolic encephalopathy: Status: Acute (4) Type 2 diabetes mellitus with unspecified complications: Status: Acute (5) Essential hypertension: Status: Acute Plan Patient is a 67 year old obese female with past medical history of type 2 diabetes mellitus, hypertension, hyperlipidemia, and ischemic cardiomyopathy here with: 1. Severe sepsis - patient meets criteria for severe sepsis due to UTI - she was started on IV Ceftriaxone which I will continue 2. UTI - UA concerning for UTI - continue with IV ceftriaxone 3. Toxic encephalopathy - patient with confusion when she first arrived in the emergency room - likely due to UTI - treat underlying UTI 4. Type 2 diabetes mellitus - resume Insulin Lantus - add sliding scale insulin coverage 5. Hyperlipidemia - resume Atorvastatin 6. Hypertension - BP control is fair - resume Carvedilol & Amlodipine. DVT: SC Lovenox CODE STATUS: Full code Admission for at least 2 midnights for management of Severe sepsis due to UTI and toxic encephalopathy Total time managing care of this patient today: 75 minutes. Quality Stroke Does the patient have a stroke diagnosis?: Yes Reason for No Anti-thrombotic by Day Two: Not indicated VTE Prior VTE?: No VTE Risk Level:: Medical - moderate - high VTE Device Contraindication: N/A - Device Ordered VTE Drug Contraindication: N/A - Med Ordered
[2023-08-16 05:45] LABS: ~Lactic Acid-LAB USE ONLY 2.9 mmol/L (0.5-2.0)
--- NOTE | 2023-08-16 05:49 | PC.NURSE ---
lab called with critical lactic acid level 2.9. Dr. Cannon notified.
[2023-08-16] MEDS: Enoxaparin Sodium 40 MG/0.4 ML SYRINGE SUBCUT (05:56)
--- NOTE | 2023-08-16 05:58 | MHC.EDTECH ---
Hourly rounds and vitals completed,patient repositioned to comfort, patient is clean and dry pure wick in place, emptied canister 200MLS of urine. Belonging list completed and copy placed in chart, Call cifuentes in reach
[2023-08-16 07:29] LABS: Reflex Lactate? 2 Y
[2023-08-16 07:43] LABS: Glucose, Whole Blood 149 mg/dL (60-115)
[2023-08-16] MEDS: amLODIPine Besylate 10 MG TABLET PO (08:25)
[2023-08-16] MEDS: Escitalopram Oxalate 5 MG TABLET PO (08:25)
[2023-08-16] MEDS: carvediloL 25 MG TABLET PO ×2 (08:25→20:55)
[2023-08-16] MEDS: Aspirin Enteric Coated 81 MG TABLET.DR PO (08:26)
[2023-08-16] MEDS: Atorvastatin Calcium 40 MG TABLET PO (08:26)
[2023-08-16] MEDS: Cyanocobalamin (Vitamin B-12) 1,000 MCG TABLET 1000 MCG PO (08:26)
[2023-08-16] MEDS: Folic Acid 1 MG TABLET PO (08:26)
[2023-08-16] MEDS: Ascorbic Acid 500 MG TABLET PO (08:26)
[2023-08-16] MEDS: Furosemide 20 MG TABLET PO (08:27)
[2023-08-16] MEDS: metFORMIN HCl 1,000 MG TABLET 1000 MG PO ×2 (08:27→17:12)
[2023-08-16] MEDS: Docusate Sodium 100 MG CAPSULE PO ×2 (08:27→20:55)
[2023-08-16] MEDS: Omeprazole 20 MG CAPSULE.DR PO (08:27)
[2023-08-16] MEDS: Ferrous Sulfate 324 MG TABLET.DR PO (08:27)
[2023-08-16] MEDS: buPROPion HCL 75 MG TABLET PO ×2 (08:29→20:55)
[2023-08-16] MEDS: 0.9 % Sodium Chloride Flush 3 ML SYRINGE IVFLUSH ×3 (08:29→21:02)
--- NOTE | 2023-08-16 08:46 | PHA.MEDREC ---
Addendum entered by Diane Eddy RPh 08/16/23 10:27: Overnight pharmacy verified home meds without med rec being reviewed by pharmacy, per Ada[facility] patient takes 20mg escitalopram daily. On 08/16 5mg was administered however provider was notified of dose discrepancy Original Note: Pharmacy Consult ? Medication Reconciliation Pharmacy has completed the medication reconciliation. used claim history to verify medications.
--- NOTE | 2023-08-16 09:39 | PM.EVENT ---
Event Note Date of Service: 08/16/23 Event Note: Seen and evaluated this morning More alert and interactive but still confused Denies any fever or pain Passed swallowing test Continue Antibitoics pending cultures Reorientation Time Spent With Patient Time: Total time managing care of this patient today ____ minutes.
--- NOTE | 2023-08-16 10:25 | PC.NURSE ---
With patients permission clerk stenographer at bedside updated on plan of care
[2023-08-16 10:35] LABS: ~Lactic Acid-LAB USE ONLY 1.7 mmol/L (0.5-2.0)
--- NOTE | 2023-08-16 11:46 | MHC.CM.PN ---
CM MET WITH PT AND HER ELECTRICAL SIGN WIRER AT BEDSIDE WITH THE ASSISTANCE OF A ATHLETIC TURF WORKER PT LIVES WITH HER NEPHEW AND HAS ELECTRICAL SIGN WIRER SERVICES TWICE DAILY FROM [phone] AND FROM [phone] PT ALSO HAS A [facility] RN THAT CHECKS IN Q 6 MONTHS PT HAS A CANE, HOWEVER SHE THOUGHT SHE BROUGHT IT TO THE ED AND HAS BEEN UNABLE TO FIND IT PT HAS A HCP ON FILE PCP: PT DOES NOT KNOW THE NAME OF HER PCP BUT SAYS SHE GOES TO [facility] IMM DELIVERED DCP: HOME, RESUME ELECTRICAL SIGN WIRER SERVICES ELECTRICAL SIGN WIRER TO TRANSPORT ELECTRICAL SIGN WIRER: [facility] [phone]
--- NOTE | 2023-08-16 11:58 | PC.NURSE ---
Provider notified of low BP
--- NOTE | 2023-08-16 13:33 | PC.NURSE ---
Report given to accepting unit
[2023-08-16 13:46] LABS: Glucose, Whole Blood 119 mg/dL (60-115)
[2023-08-16 16:28] LABS: Glucose, Whole Blood 93 mg/dL (60-115)
[2023-08-16 20:47] LABS: Glucose, Whole Blood 98 mg/dL (60-115)
[2023-08-16] MEDS: Gabapentin 300 MG CAPSULE PO (20:55)
[2023-08-16] MEDS: Insulin Glargine,Hum.rec.anlog 100 UNIT/ML 10 ML VIAL 28 UNIT SUBCUT (21:02)
[2023-08-17 03:24] VITALS: BP 101/62; PULSE 78; RESP 18; TEMP 36.1; O2SAT 96
[2023-08-17] MEDS: Enoxaparin Sodium 40 MG/0.4 ML SYRINGE SUBCUT (05:52)
[2023-08-17 06:19] LABS: MANUAL DIFF FLAG NO
[2023-08-17 06:31] LABS: Basophils Percent Auto 0.3 % (0-2); Eosinophils Absolute Auto 0.2 X10*3/uL (0.0-0.4); Eosinophils Percent Auto 1.7 % (0-4); Hematocrit 29.5 % (37.0-47.0); Hemoglobin 9.6 g/dl (12.0-16.0); Imm Gran Abs Auto 0.04 X10*3/uL (0.00-0.03); Imm Gran Pct Auto 0.4 % (0.0-0.4); Lymphocytes Absolute Auto 1.1 X10*3/uL (1.2-4.9); Lymphocytes Percent Auto 10.1 % (20-40); Mean Corpuscular HGB Conc 32.5 g/dl (31.0-35.0); Mean Corpuscular Hemoglobin 29.3 pg (27.0-33.0); Mean Corpuscular Volume 89.9 fL (80.0-98.0); Monocytes Absolute Auto 0.9 X10*3/uL (0.1-1.2); Monocytes Percent Auto 8.3 % (2-11); Neutrophils Absolute Auto 8.9 x10*3/uL (2.0-8.3); Neutrophils Percent Auto 79.2 % (45-73); Platelet Count 258 X10*3/uL (160-400); Red Blood Count 3.28 X10*6/uL (4.20-5.50); Red Cell Distribution Width 13.1 % (11.0-16.0); White Blood Count 11.2 X10*3/uL (4.8-10.8)
[2023-08-17] MEDS: Magnesium Sulfate/H2O 2 GM/50 ML PIGGYBACK IV (07:35)
[2023-08-17 07:36] LABS: Anion Gap 16 (12-20); Blood Urea Nitrogen 17 mg/dL (9-16); Carbon Dioxide 26 mmol/L (22-29); Chloride 105 mmol/L (96-108); Creatinine Clr Calc Pharmacy 68.9; Estimated Glomerular Filt Rate > 60; Glucose Random 49 mg/dL (60-115); Magnesium 1.3 mg/dL (1.6-2.6); Potassium 3.7 mmol/L (3.3-5.1); Sodium 143 mmol/L (135-145)
[2023-08-17 07:45] LABS: Glucose, Whole Blood 55 mg/dL (60-115)
[2023-08-17 07:45] LABS: Glucose, Whole Blood 93 mg/dL (60-115)
[2023-08-17 07:48] VITALS: BP 96/65; PULSE 89; RESP 14; TEMP 36.6; O2SAT 92
--- NOTE | 2023-08-17 09:20 | P.PNIM_ITS ---
Subjective Subjective Date of Service: 08/17/23 Interval History: Seen and evaluated this morning More alert and interactive blood cultures growing GNR Review of Systems Review of Systems: Yes all other systems are reviewed and are negative Physical Exam 2 Vital Signs: Vital Signs: Last Vital Signs Temp 97.9 F 08/17/23 07:48 Pulse 89 08/17/23 07:48 Resp 14 08/17/23 07:48 BP 96/65 08/17/23 07:48 Pulse Ox 92 08/17/23 07:48 O2 Del Method Room Air 08/17/23 07:48 BMI result Body Mass Index 33.9 Const: Other: Constitutional : Awake, interactive, obese, not in distress Neck : Normal inspection, Supple Cardiovascular : RRR, no JVP, no lower extremity edema Respiratory : good bilateral air entry, no crackles, wheezes or rhonchi Gastrointestinal: soft, lax, Normal bowel sounds, Non tender Skin : Warm, Dry Neurological : Alert & oriented x3, No focal deficit Objective Data Active Medications Acetaminophen (Acetaminophen 325 Mg Tablet) 650 mg PO Q6H PRN PRN Reason: Pain, Mild (Pain Scale 1-3) Al Hydroxide/Mg Hydroxide (Magnesium Hydrox/Alum Hydrox 30 Ml Oral.Susp) 30 ml PO Q4H PRN PRN Reason: Heartburn/Nausea Amlodipine Besylate (Amlodipine Besylate 10 Mg Tablet) 10 mg PO DAILY [facility]; Protocol Last Admin: 08/16/23 08:25 Dose: 10 mg Documented By: KEEGAN Ascorbic Acid (Ascorbic Acid 500 Mg Tablet) 500 mg PO DAILY [facility] Last Admin: 08/16/23 08:26 Dose: 500 mg Documented By: KEEGAN Aspirin (Aspirin Enteric Coated 81 Mg Tablet.Dr) 81 mg PO DAILY [facility] Last Admin: 08/16/23 08:26 Dose: 81 mg Documented By: KEEGAN Atorvastatin Calcium (Atorvastatin Calcium 40 Mg Tablet) 40 mg PO DAILY [facility] Last Admin: 08/16/23 08:26 Dose: 40 mg Documented By: KEEGAN Bupropion HCl (Bupropion Hcl 75 Mg Tablet) 75 mg PO BID [facility] Last Admin: 08/16/23 20:55 Dose: 75 mg Documented By: JANELLE Carvedilol (Carvedilol 25 Mg Tablet) 25 mg PO BID [facility]; Protocol Last Admin: 01/10/24 20:55 Dose: 25 mg Documented By: JANELLE Cyanocobalamin (Cyanocobalamin (Vitamin B-12) 1,000 Mcg Tablet) 1,000 mcg PO DAILY [facility] Last Admin: 08/16/23 08:26 Dose: 1,000 mcg Documented By: KEEGAN Dextrose (Dextrose 50 % 25 Gm/50 Ml Syringe) 25 gm IVPUSH Q15M PRN; Protocol PRN Reason: per Hypoglycemia Standing Ord. Docusate Sodium (Docusate Sodium 100 Mg Capsule) 100 mg PO BID [facility] Last Admin: 08/16/23 20:55 Dose: 100 mg Documented By: JANELLE Docusate Sodium (Docusate Sodium 100 Mg Capsule) 100 mg PO DAILY [facility] Last Admin: 08/16/23 08:28 Dose: Not Given Documented By: KEEGAN Non-Admin Reason: See Note Enoxaparin Sodium (Enoxaparin Sodium 40 Mg/0.4 Ml Syringe) 40 mg SUBCUT Q24H [facility] Last Admin: 08/17/23 05:52 Dose: 40 mg Documented By: JANELLE Escitalopram Oxalate (Escitalopram Oxalate 20 Mg Tablet) 20 mg PO DAILY [facility] Ferrous Sulfate (Ferrous Sulfate 324 Mg Tablet.) 324 mg PO DAILY [facility] Last Admin: 08/16/23 08:27 Dose: 324 mg Documented By: KEEGAN Folic Acid (Folic Acid 1 Mg Tablet) 1 mg PO DAILY [facility] Last Admin: 08/16/23 08:26 Dose: 1 mg Documented By: KEEGAN Furosemide (Furosemide 20 Mg Tablet) 20 mg PO DAILY [facility]; Protocol Last Admin: 08/16/23 08:27 Dose: 20 mg Documented By: KEEGAN Gabapentin (Gabapentin 300 Mg Capsule) 300 mg PO BEDTIME [facility] Last Admin: 08/16/23 20:55 Dose: 300 mg Documented By: JANELLE Glucose (Glucose Gel 15 Gm Gel..Gram.) 15 gm PO Q15M PRN; Protocol PRN Reason: per Hypoglycemia Standing Ord. Ceftriaxone Sodium 1 gm/ (Sodium Chloride) 50 mls @ 100 mls/hr IV BEDTIME [facility] Last Infusion: 08/16/23 21:48 Dose: Infused Documented By: JANELLE Magnesium Sulfate (Magnesium Sulfate/H2o) 2 gm in 50 mls @ 25 mls/hr IV ONCE ONE Stop: 08/17/23 09:26 Last Admin: 08/17/23 07:35 Dose: 25 mls/hr Documented By: DECLAN Insulin Glargine (Insulin Glargine,Hum.Rec.Anlog 100 Unit/Ml 10 Ml Vial) 28 unit SUBCUT BEDTIME [facility] Last Admin: 08/16/23 21:02 Dose: 28 unit Documented By: JANELLE Insulin Human Lispro (Insulin Lispro 100 Unit/Ml 3 Ml Vial) 0 unit SUBCUT QIDACHS [facility]; Protocol Last Admin: 08/17/23 07:39 Dose: Not Given Documented By: DECLAN Non-Admin Reason: No Insulin Coverage Comments: Blood sugar = 93 Melatonin (Melatonin 3 Mg Tablet) 6 mg PO BEDTIME PRN PRN Reason: Insomnia Metformin HCl (Metformin Hcl 1,000 Mg Tablet) 1,000 mg PO BIDWM [facility] Last Admin: 08/16/23 17:12 Dose: 1,000 mg Documented By: NENA Omeprazole (Omeprazole 20 Mg Capsule.Dr) 20 mg PO DAILY [facility] Last Admin: 08/16/23 08:27 Dose: 20 mg Documented By: KEEGAN Ondansetron HCl (Ondansetron Hcl 4 Mg/2 Ml Vial) 4 mg IVPUSH Q8H PRN PRN Reason: Nausea and Vomiting Sodium Chloride (0.9 % Sodium Chloride Flush 3 Ml Syringe) 3 ml IVFLUSH QSHIFT [facility] Last Admin: 08/16/23 21:02 Dose: 3 ml Documented By: JANELLE Labs 08/17/23 05:42 08/17/23 05:42 Labs: Laboratory Results - last 24 hr 08/16/23 08/16/23 08/16/23 00:48 10:04 13:18 MCV MCH MCHC RDW Plt Count MPV Immature Gran % (Auto) Neut % (Auto) Lymph % (Auto) [place] % (Auto) Eos % (Auto) Baso % (Auto) Lymph # (Auto) [place] # (Auto) Eos # (Auto) Baso # (Auto) Abs Immat Gran (auto) Absolute Neuts (auto) Absolute Nucleated RBC Nucleated RBC % (auto) Whole Blood PT 12.9 Whole Blood INR 1.1 Anion Gap Estim Creat Clear Calc Estimated GFR POC Glucose 119 H Random Glucose Lactic Acid F/U @ 4Hr 1.7 Calcium Magnesium 08/16/23 08/16/23 08/17/23 16:14 20:39 05:42 MCV 89.9 MCH 29.3 MCHC 32.5 RDW 13.1 Plt Count 258 MPV 10.0 Immature Gran % (Auto) 0.4 Neut % (Auto) 79.2 H Lymph % (Auto) 10.1 L [place] % (Auto) 8.3 Eos % (Auto) 1.7 Baso % (Auto) 0.3 Lymph # (Auto) 1.1 L [place] # (Auto) 0.9 Eos # (Auto) 0.2 Baso # (Auto) 0.0 Abs Immat Gran (auto) 0.04 H Absolute Neuts (auto) 8.9 H Absolute Nucleated RBC 0.000 Nucleated RBC % (auto) 0.0 Whole Blood PT Whole Blood INR Anion Gap 16 Estim Creat Clear Calc 68.9 Estimated GFR > 60 POC Glucose 93 98 Random Glucose 49 L* Lactic Acid F/U @ 4Hr Calcium 8.0 L D Magnesium 1.3 L* 08/17/23 08/17/23 07:09 07:37 MCV MCH MCHC RDW Plt Count MPV Immature Gran % (Auto) Neut % (Auto) Lymph % (Auto) [place] % (Auto) Eos % (Auto) Baso % (Auto) Lymph # (Auto) [place] # (Auto) Eos # (Auto) Baso # (Auto) Abs Immat Gran (auto) Absolute Neuts (auto) Absolute Nucleated RBC Nucleated RBC % (auto) Whole Blood PT Whole Blood INR Anion Gap Estim Creat Clear Calc Estimated GFR POC Glucose 55 L* 93 Random Glucose Lactic Acid F/U @ 4Hr Calcium Magnesium Microbiology Microbiology Results: Microbiology 08/16/23 Unknown Urine Culture - Preliminary Urine clean catch - Urine rudolph top Gram negative wander 08/16/23 01:55 Blood Culture - Preliminary Blood - Venous Gram negative wander 08/16/23 01:55 Blood Culture - Preliminary Blood - Venous Gram negative wander Assessment and Plan (1) Sepsis: Status: Acute (2) Acute UTI: Status: Acute (3) Acute metabolic encephalopathy: Status: Acute (4) Bacteremia due to Gram-negative bacteria: Status: Acute Plan Patient is a 67 year old obese female with past medical history of type 2 diabetes mellitus, hypertension, hyperlipidemia, and ischemic cardiomyopathy here with: # Sepsis 2/2 GNR Bacteremia from UTI sepsis resolved Pending blood cultures Continue IV Ceftriaxone which I will continue # Toxic encephalopathy due to UTI Improving, treat underlying UTI # Type 2 diabetes mellitus resume Insulin Lantus sliding scale insulin coverage Hyperlipidemia resume Atorvastatin Hypertension BP control is fair resume Carvedilol & Amlodipine. DVT: SC Lovenox Will require overnight stay for management of Severe sepsis due to UTI and toxic encephalopathy pending final blood cultures Quality Stroke Does the patient have a stroke diagnosis?: Yes Reason for No Anti-thrombotic by Day Two: Not indicated VTE Prior VTE?: No VTE Risk Level:: Medical - moderate - high VTE Device Contraindication: N/A - Device Ordered VTE Drug Contraindication: N/A - Med Ordered
[2023-08-17] MEDS: metFORMIN HCl 1,000 MG TABLET 1000 MG PO ×2 (09:26→17:02)
[2023-08-17] MEDS: Omeprazole 20 MG CAPSULE.DR PO (09:26)
[2023-08-17] MEDS: Atorvastatin Calcium 40 MG TABLET PO (09:26)
[2023-08-17] MEDS: 0.9 % Sodium Chloride Flush 3 ML SYRINGE IVFLUSH ×3 (09:26→20:58)
[2023-08-17] MEDS: carvediloL 25 MG TABLET PO (09:26)
[2023-08-17] MEDS: Cyanocobalamin (Vitamin B-12) 1,000 MCG TABLET 1000 MCG PO (09:27)
[2023-08-17] MEDS: amLODIPine Besylate 10 MG TABLET PO (09:27)
[2023-08-17] MEDS: buPROPion HCL 75 MG TABLET PO ×2 (09:27→20:57)
[2023-08-17] MEDS: Ascorbic Acid 500 MG TABLET PO (09:27)
[2023-08-17] MEDS: Furosemide 20 MG TABLET PO (09:27)
[2023-08-17] MEDS: Folic Acid 1 MG TABLET PO (09:27)
[2023-08-17] MEDS: Aspirin Enteric Coated 81 MG TABLET.DR PO (09:27)
[2023-08-17] MEDS: Escitalopram Oxalate 20 MG TABLET PO (09:27)
[2023-08-17] MEDS: Ferrous Sulfate 324 MG TABLET.DR PO (09:27)
[2023-08-17 11:40] LABS: Glucose, Whole Blood 128 mg/dL (60-115)
[2023-08-17 15:04] VITALS: BP 93/56; PULSE 86; RESP 18; TEMP 36.7; O2SAT 96
[2023-08-17 16:18] LABS: Glucose, Whole Blood 76 mg/dL (60-115)
[2023-08-17 16:48] LABS: Glucose, Whole Blood 102 mg/dL (60-115)
[2023-08-17] MEDS: ondansetron HCL 4 MG/2 ML VIAL IVPUSH (18:40)
[2023-08-17 19:18] VITALS: BP 94/50; PULSE 77; RESP 18; TEMP 36.7; O2SAT 95
[2023-08-17 20:24] LABS: Glucose, Whole Blood 116 mg/dL (60-115)
--- NOTE | 2023-08-17 20:48 | PC.NURSE ---
Pt complaint of loose watery stools x 5 today and abdominal pain after eating relieved with BM. MD made aware, new order for imodium, Pt medicated per OCT, effectiveness pending. Pt lying in bed with call cifuentes in reach, denies pain at this time, respirations even and unlabored, high fall risk precautions in place.
[2023-08-17] MEDS: Loperamide HCl 2 MG CAPSULE PO (20:57)
[2023-08-17] MEDS: Gabapentin 300 MG CAPSULE PO (20:57)
[2023-08-17] MEDS: cefTRIAXone sodium 1 GM in 0.9 % Sodium Chloride 50 ML IV (20:57)
[2023-08-17] MEDS: Insulin Glargine,Hum.rec.anlog 100 UNIT/ML 10 ML VIAL 28 UNIT SUBCUT (20:57)
[2023-08-18 03:17] VITALS: BP 101/55; PULSE 70; RESP 18; TEMP 36.6; O2SAT 94
[2023-08-18] MEDS: Enoxaparin Sodium 40 MG/0.4 ML SYRINGE SUBCUT (05:15)
[2023-08-18 07:29] VITALS: BP 94/51; PULSE 72; RESP 20; TEMP 37.1; O2SAT 94
[2023-08-18 07:29] LABS: Glucose, Whole Blood 56 mg/dL (60-115)
[2023-08-18 08:15] LABS: Glucose, Whole Blood 119 mg/dL (60-115)
[2023-08-18] MEDS: metFORMIN HCl 1,000 MG TABLET 1000 MG PO ×2 (08:30→18:30)
[2023-08-18] MEDS: Escitalopram Oxalate 20 MG TABLET PO (08:30)
[2023-08-18] MEDS: buPROPion HCL 75 MG TABLET PO (08:30)
[2023-08-18] MEDS: Cyanocobalamin (Vitamin B-12) 1,000 MCG TABLET 1000 MCG PO (08:30)
[2023-08-18] MEDS: Ascorbic Acid 500 MG TABLET PO (08:30)
[2023-08-18] MEDS: Omeprazole 20 MG CAPSULE.DR PO (08:30)
[2023-08-18] MEDS: Aspirin Enteric Coated 81 MG TABLET.DR PO (08:30)
[2023-08-18] MEDS: Ferrous Sulfate 324 MG TABLET.DR PO (08:30)
[2023-08-18] MEDS: Folic Acid 1 MG TABLET PO (08:30)
[2023-08-18] MEDS: Atorvastatin Calcium 40 MG TABLET PO (08:30)
[2023-08-18] MEDS: 0.9 % Sodium Chloride Flush 3 ML SYRINGE IVFLUSH (08:33)
[2023-08-18 10:26] VITALS: BP 94/51; PULSE 72; O2SAT 94
--- NOTE | 2023-08-18 10:56 | PM.DS ---
DS: Providers Provider Date of Service: 08/18/23 Date of admission: 08/16/23 05:21 Primary care physician: Shantell Herr MD DS: Diagnosis Discharge Diagnosis (1) Sepsis: Status: Acute (2) Acute UTI: Status: Acute (3) Acute metabolic encephalopathy: Status: Acute (4) Bacteremia due to Gram-negative bacteria: Status: Acute DS: Summary Hospital Course Hospital Course: Admission note HPI Patient is a 67 year old obese female with past medical history of type 2 diabetes mellitus, hypertension, hyperlipidemia, and ischemic cardiomyopathy who was brought to the emergency room from home by EMS for evaluation after she complained of sudden onset of headaches, slurred/garbled speech, and right sided weakness. She has fallen twice over the past 2 days but denies any injuries. When she came to the emergency room, she was noted to be confused and initial vital signs were notable for a fever of 104 F and tachycardia with a heart rate of 99 bpm. Blood work done was notable for elevated serum lactic acid at 3.0 (follow up at 2.9). Urinalysis was notable for positive urine nitrite with 2+ leukocyte esterase, 11-20 WBC/HPF and 4+ bacteria. Hospital course The patient was admitted to the hosptial for treatment of Sepsis and Toxic encephalopathy as a result of E.Coli Bacteremia from UTI. Blood and urine cultures grew sensitive E.Coli as the patient responded well to IV Ceftriaxone as she regained her full consciousness back to baseline and was able to ambulate using her walker steadily with the nursing staff. to finish total of 2 weeks of antibiotics. To be discharged on 12 more days of Ceftin. Continue Ceftin 500 mg twice daily for 12 more days Keep yourself well hydrated Increase physical activity as tolerated Time Attestation Discharge coordination time: Greater than 30 minutes Quality: Safe Use of Opioids Does Pt have an Active Cancer Diagnosis on the Problem List?: No Quality: Stroke Does the patient have a stroke diagnosis?: No Physical Exam Vital Signs: Vital Signs: Last Vital Signs Temp 98.8 F 08/18/23 07:29 Pulse 72 08/18/23 07:29 Resp 20 08/18/23 07:29 BP 94/51 L 08/18/23 07:29 Pulse Ox 94 08/18/23 07:29 O2 Del Method Room Air 08/18/23 07:29 BMI result Body Mass Index 33.9 Const: Other: Constitutional : Awake, interactive, obese, not in distress Neck : Normal inspection, Supple Cardiovascular : RRR, no JVP, no lower extremity edema Respiratory : good bilateral air entry, no crackles, wheezes or rhonchi Gastrointestinal: soft, lax, Normal bowel sounds, Non tender Skin : Warm, Dry Neurological : Alert & oriented x3, No focal deficit DS: Data Data Completed and Pending Labs on day of discharge: Laboratory Results - last 24 hr 08/17/23 08/17/23 08/17/23 11:33 16:04 16:44 POC Glucose 128 H 76 102 08/17/23 08/18/23 08/18/23 19:25 07:25 08:12 POC Glucose 116 H 56 L* 119 H Imaging Chest x-ray: Radiologist's impression: ITS Impressions Head CT 08/16/23 00:55 IMPRESSION: 1. No acute intracranial pathology. 2. Chronic encephalomalacia in the right frontal lobe. This critical result was discussed with Dr. Morocho at 1:04 AM on 08/16/2023. It was ascertained that the content and urgency of the report was understood at the time of direct communication. Head/Neck CTA 08/16/23 01:20 IMPRESSION: 1. No progressive steno-occlusive. 2. Chronically occluded right internal carotid artery from its origin throughout the reconstituted supraclinoid segment via the [place]. 3. Stable pruning of the distal right MCA territory vasculature related to chronic right MCA territory infarct. 4. Apparent 1.0 cm hyperdense/enhancing nodular soft tissue along the posterior supraglottic larynx/hypopharynx may be artifactual in etiology however can be correlated with direct inspection to exclude underlying lesion Findings were communicated to Dr. Lombardo at 1:38 AM on 08/16/2023 and it was ascertained that the content and urgency of the report was understood at the time of direct communication. Chest X-Ray 08/16/23 02:15 IMPRESSION: No acute pulmonary findings. Discharge Plan Discharge Anticipated Discharge Date/Time: 08/18/23 10:53 Patient Disposition: Home, Self-Care Discharge Diagnosis: E.Coli Urine infection with bacteremia Referrals: Shantell Herr MD [Primary Care Provider] - 1 Week Discharge Medications: New cefuroxime axetil 500 mg tablet 500 mg PO BID Qty: 24 0RF Continued cyanocobalamin (vitamin B-12) [Vitamin B-12] 1,000 mcg Tablet 1,000 mcg PO DAILY ascorbic acid (vitamin C) [Vitamin C] 500 mg Tablet 500 mg PO DAILY ferrous sulfate 325 mg (65 mg iron) Tablet 325 mg PO DAILY omeprazole 20 mg Capsule,Delayed Release(Dr/Ec) 20 mg PO DAILY insulin glargine [Lantus Solostar U-100 Insulin] 100 unit/mL (3 mL) Insulin Pen 28 unit SUBCUT QPM docusate sodium [Colace] 100 mg Capsule 100 mg PO DAILY PRN (Reason: Constipation) cholecalciferol (vitamin D3) [Vitamin D3] 50 mcg (2,000 unit) capsule 50 mcg PO DAILY escitalopram oxalate 20 mg tablet 20 mg PO DAILY amlodipine 10 mg tablet 10 mg PO DAILY aspirin [Adult Low Dose Aspirin] 81 mg tablet,delayed release (DR/EC) 81 mg PO DAILY atorvastatin 40 mg tablet 40 mg PO DAILY bupropion HCl 150 mg tablet sustained-release 12 hr 150 mg PO BID carvedilol 25 mg tablet 25 mg PO BID Rx Instructions: must administer with a meal/food folic acid 1 mg tablet 1 mg PO DAILY furosemide 20 mg tablet 20 mg PO DAILY gabapentin 300 mg capsule 300 mg PO BEDTIME metformin 1,000 mg tablet 1,000 mg PO BID Discharge Orders: Discharge Order (Routine); Ordered 08/18/23 Ordered By: Mary Ricketts Diet: Advance to usual diet Activity on Discharge: As tolerated Stand Alone Forms: Patient Portal Discharge page Care Plan Goals: Read below Health Concerns: Read below Plan of Treatment: Read below Assessment: Continue Ceftin 500 mg twice daily for 12 more days Keep yourself well hydrated Increase physical activity as tolerated
[2023-08-18 11:19] LABS: Glucose, Whole Blood 199 mg/dL (60-115)
--- NOTE | 2023-08-18 11:28 | MHC.CM.PN ---
pt dcd home no skilled servies
[2023-08-18] MEDS: Insulin Lispro 100 UNIT/ML 3 ML VIAL SUBCUT (12:06)
[2023-08-18 15:32] VITALS: BP 96/52; PULSE 70; RESP 15; TEMP 36.1; O2SAT 95
[2023-08-18 16:17] LABS: Glucose, Whole Blood 124 mg/dL (60-115)
== END 2023-08-18 19:34 | disposition home or self-care (01) | DRG 871 ==
LOC: HO.ED 04:21 → HO.EDOVER 05:42 → HO.S3 13:20
PROVIDERS: Admitting Provider Internal Medicine; Emergency Provider Internal Medicine; PCP General Practice; Visit Provider Student in an Organized Health Care Education/Training Program
DX: A41.51 Sepsis due to Escherichia coli [E. coli] (principal); G92.8 Other toxic encephalopathy; I69.354 Hemiplegia and hemiparesis following cerebral infarction affecting left non-dominant side; N39.0 Urinary tract infection, site not specified; R65.20 Severe sepsis without septic shock; I10 Essential (primary) hypertension; E78.5 Hyperlipidemia, unspecified; E11.40 Type 2 diabetes mellitus with diabetic neuropathy, unspecified; I25.10 Atherosclerotic heart disease of native coronary artery without angina pectoris; E66.9 Obesity, unspecified; Z68.33 Body mass index [BMI] 33.0-33.9, adult; Z20.822 Contact with and (suspected) exposure to COVID-19; Z87.891 Personal history of nicotine dependence; Z79.4 Long term (current) use of insulin; Z79.82 Long term (current) use of aspirin; Z79.84 Long term (current) use of oral hypoglycemic drugs; Z79.899 Other long term (current) drug therapy
CPT/HCPCS: 0241U; 36415; 70450; 70496; 70498; 71045; 80048; 81001; 82550; 82803; 82947; 83605; 83735; 84484; 85025; 85610; 85730; 87040; 87077; 87086; 87088; 87186; 87205; 93005; 97162; 99285; J0696; J1650; J2405; J3475; Q9967

== ENCOUNTER → 2023-08-16 00:49 | Outpatient (BNV) | payer OTHER, SELFPAY | PROVIDERS: Admitting Provider Internal Medicine; Emergency Provider Internal Medicine; PCP General Practice; Visit Provider Internal Medicine Cardiovascular Disease | DX: I45.81 Long QT syndrome (principal) | CPT/HCPCS: 93010 ==

== ENCOUNTER → 2023-08-16 05:21 | Outpatient (BNV) | payer OTHER, SELFPAY | PROVIDERS: Admitting Provider Internal Medicine; Emergency Provider Internal Medicine; Visit Provider Internal Medicine | DX: A41.9 Sepsis, unspecified organism (principal); R65.20 Severe sepsis without septic shock; E11.8 Type 2 diabetes mellitus with unspecified complications; N39.0 Urinary tract infection, site not specified; G93.41 Metabolic encephalopathy; I10 Essential (primary) hypertension | CPT/HCPCS: 99223; 99232; 99239; 99499 ==

== ENCOUNTER 2023-12-10 14:07 | Emergency (ER) | payer OTHER, SELFPAY ==
--- NOTE | ~2023-12-10 | CT_ITS ---
EXAMINATION: CT CERVICAL SPINE WITHOUT CONTRAST CLINICAL INFORMATION: Fall COMPARISON: None available. TECHNIQUE: Axial images through the cervical spine without IV contrast. Sagittal and coronal reconstructions on the technologist workstation were performed. This CT examination was performed using dose optimization techniques as appropriate, variously including the following: *Automated exposure control *Adjustment of mA and/or kV according to patient size (this includes techniques or standardized protocols for targeted exams where dose is matched to indication/reason for exam; i.e. extremities or head) *Use of iterative reconstruction technique DLP: 505 mGy-cm FINDINGS: Bone alignment is normal. No fracture or dislocation. Multilevel degenerative spondylosis and degenerative disc disease greatest at C5-C6 and C6-C7. Prevertebral soft tissues are normal. Lung apices are clear. CT/CT cervical spine wo IV con IMPRESSION: Degenerative changes. No fracture or dislocation. Fleischner guidelines were followed.
--- NOTE | ~2023-12-10 | CT_ITS ---
EXAMINATION: CT ABDOMEN AND PELVIS WITH CONTRAST CLINICAL INFORMATION: Fall or left flank ecchymoses. COMPARISON: Previous CT of the abdomen and pelvis from 2018 TECHNIQUE: Multidetector volumetric images were obtained from the superior aspect of the liver through the pubic symphysis following administration 85 mL of Omnipaque 350 intravenous contrast. Sagittal and coronal reformatted images were obtained on the technologist's workstation. Oral contrast: Yes This CT examination was performed using dose optimization techniques as appropriate, variously including the following: *Automated exposure control *Adjustment of mA and/or kV according to patient size (this includes techniques or standardized protocols for targeted exams where dose is matched to indication/reason for exam; i.e. extremities or head) *Use of iterative reconstruction technique DLP: 940 mGy-cm FINDINGS: LUNG BASES: The visualized lung bases are unremarkable. LIVER, GALLBLADDER, AND BILIARY TREE: The liver is normal in size, shape, and attenuation. No focal hepatic lesion or biliary ductal dilatation is present. The gallbladder is unremarkable with no evidence of radiopaque gallstones, gallbladder wall thickening, or obvious pericholecystic inflammatory changes. PANCREAS: Unremarkable. SPLEEN: Unremarkable. ADRENAL GLANDS: Unremarkable. KIDNEYS AND URETERS: The kidneys are normal in size, shape, and attenuation. No hydronephrosis, hydroureter, or calculi seen. No perinephric stranding. BLADDER: Unremarkable. GASTROINTESTINAL TRACT: The small and large bowel are unremarkable. The appendix is unremarkable. ABDOMINAL WALL: Small umbilical hernia containing fat. LYMPH NODES: Normal. VASCULAR: Atherosclerotic disease. PELVIC VISCERA: Unremarkable. OSSEOUS STRUCTURES: Degenerative changes of the spine. No fracture seen. CT/CT abdomen pelvis w IV con IMPRESSION: No acute findings. Fleischner guidelines were followed.
--- NOTE | ~2023-12-10 | CT_ITS ---
EXAMINATION: CT CHEST WITH CONTRAST CLINICAL INFORMATION: Fall. Left posterior rib pain. COMPARISON: Previous chest x-ray August 2023 and chest CTA from 2013 TECHNIQUE: Multidetector volumetric CT imaging of the chest was obtained after the administration of 85 mL of Omnipaque 350 intravenous contrast without immediate adverse reactions. Axial MIP volume rendering provided. Sagittal and coronal reformatted images were obtained. This CT examination was performed using dose optimization techniques as appropriate, variously including the following: *Automated exposure control *Adjustment of mA and/or kV according to patient size (this includes techniques or standardized protocols for targeted exams where dose is matched to indication/reason for exam; i.e. extremities or head) *Use of iterative reconstruction technique DLP: 554 mGy-cm FINDINGS: INSTALLATION DRAFTER: Unremarkable LUNGS: Stable 3 mm left lower lobe nodule axial image 27 series 23. No imaging follow-up recommended. Lungs are otherwise clear. MEDIASTINUM: Upper normal heart size. No pericardial effusion. Coronary artery calcification present. No enlarged hilar or mediastinal lymph nodes. Normal caliber thoracic aorta. PLEURA: There is no pleural effusion. No pleural mass or thickening. AXILLA: Shotty bilateral axillary lymphadenopathy. UPPER ABDOMEN: Unremarkable OSSEOUS STRUCTURES: Degenerative changes of the spine. No fracture. CT/CT chest w IV con IMPRESSION: No acute findings. Stable 3 mm left lower lobe pulmonary nodule from [address] No imaging follow-up recommended. Fleischner guidelines were followed.
--- NOTE | ~2023-12-10 | CT_ITS ---
EXAMINATION: CT HEAD WITHOUT CONTRAST CLINICAL INFORMATION: Fall. Head trauma. COMPARISON: Previous head CT most recent August 2023 TECHNIQUE: Contiguous axial imaging was performed from the skull base to vertex without intravenous administration of contrast. This CT examination was performed using dose optimization techniques as appropriate, variously including the following: *Automated exposure control *Adjustment of mA and/or kV according to patient size (this includes techniques or standardized protocols for targeted exams where dose is matched to indication/reason for exam; i.e. extremities or head) *Use of iterative reconstruction technique DLP: 658 mGy-cm FINDINGS: There is no evidence of an extra-axial collection. There is no evidence of intra or extra-axial hemorrhage. There is an old right hemisphere infarct in the frontal and parietal lobes that appears unchanged. There is ex vacuo dilatation of the right lateral ventricle unchanged. Ventricles and extra-axial CSF spaces are slightly prominent suggestive of mild generalized atrophy. There is nonspecific periventricular white matter disease. No mass or mass effect or acute infarct is seen. No skull fracture. Visualized paranasal sinuses, mastoid air cells and middle ears are clear. CT/CT head/brain wo IV con IMPRESSION: No acute findings. Old right hemisphere infarct unchanged.
--- NOTE | ~2023-12-10 | XR_ITS ---
EXAMINATION: XR ELBOW, LEFT CLINICAL INFORMATION: Pain post fall COMPARISON: Previous x-ray September 2021 TECHNIQUE: 2 views of the left elbow. FINDINGS: Exam limited due to patient positioning. The bones are osteopenic. No acute fracture or dislocation. Small osteophyte at the coronoid process. Joint spaces otherwise normal. There is question of joint effusion. Follow-up x-ray should be considered if pain persists and there is clinical suspicion of occult fracture. XR/XR elbow LT min 3V IMPRESSION: Limited exam. Question joint effusion. Follow-up x-ray should be considered if pain persists and there is clinical suspicion of occult fracture.
[2023-12-10 14:18] VITALS: BP 117/44; PULSE 65; RESP 24; TEMP 37.2; O2SAT 95; BMI 31.6
--- NOTE | 2023-12-10 14:27 | ED_ITS ---
HPI - Fall General Chief Complaint: Fall Stated Complaint: FALL, pain everywhere Time Seen by Provider: 12/10/23 14:25 Source: patient and EMS Mode of arrival: EMS Limitations: no limitations History of Present Illness HPI Narrative: 67 year old Angolan speaking female with past medical history of type 2 diabetes mellitus, hypertension, hyperlipidemia, UTI, CVA with residual left sided weakness and ischemic cardiomyopathy who presents to the ER via EMS for evaluation of recurrent falls at home. Patient reports she fell twice yesterday. She was in the kitchen, at the Fridge going to reach for some milk when she lost her balance and fell backwards. She fell onto her left elbow. Family wrapped the elbow and an Monty wrap. She had another fall shortly after that she states is due to the pain in her elbow. She usually ambulates with a cane due to her residual left-sided weakness from her stroke. She fell again onto her left side yesterday. No loss of consciousness. Today patient had another episode of fall, states it was because the pain in the elbow again. She denies any dizziness, shortness of breath, chest pain prior to the fall. She again fell onto the left side and reports pain in the elbow, left-sided ribs and back. She denies being on blood thinners but states she hit her head and has a headache. No neck pain. She has a diabetic and does not check her sugars often. EMS checked her sugar on arrival was in the 100s. complaint: fall Onset (ago): hour(s) Fall from: standing Fall witnessed: no Place fall occurred: home Loss of consciousness: none Prolonged down time: no Symptoms prior to fall: none Context: tripped/slipped and history of frequent falls Location of injury: head, chest, back and abdomen Location of injury - extremities: left: elbow Severity: severe Severity scale (1-10): 9 Quality: stabbing and aching Associated symptoms (after fall): headache and weakness Related Data Home Medications ?Medication ?Instructions ?Recorded ?Confirmed amlodipine 10 mg tablet 10 mg PO DAILY 12/08/20 08/16/23 aspirin 81 mg tablet,delayed 81 mg PO DAILY 12/08/20 08/16/23 release (Adult Low Dose Aspirin) atorvastatin 40 mg tablet 40 mg PO DAILY 12/08/20 08/16/23 bupropion HCl 150 mg tablet,12 hr 150 mg PO BID 12/08/20 08/16/23 sustained-release carvedilol 25 mg tablet 25 mg PO BID 12/08/20 08/16/23 folic acid 1 mg tablet 1 mg PO DAILY 12/08/20 08/16/23 furosemide 20 mg tablet 20 mg PO DAILY 12/08/20 08/16/23 gabapentin 300 mg capsule 300 mg PO BEDTIME 12/08/20 08/16/23 metformin 1,000 mg tablet 1,000 mg PO BID 12/08/20 08/16/23 ascorbic acid (vitamin C) 500 mg 500 mg PO DAILY 06/16/21 08/16/23 tablet (Vitamin C) cyanocobalamin (vitamin B-12) 1,000 mcg PO DAILY 06/16/21 08/16/23 1,000 mcg tablet (Vitamin B-12) docusate sodium 100 mg capsule 100 mg PO DAILY PRN Constipation 06/16/21 08/16/23 (Colace) ferrous sulfate 325 mg (65 mg 325 mg PO DAILY 06/16/21 08/16/23 iron) tablet insulin glargine 100 unit/mL (3 28 unit subcut QPM 06/16/21 08/16/23 mL) subcutaneous pen (Lantus Solostar U-100 Insulin) omeprazole 20 mg capsule,delayed 20 mg PO DAILY 06/16/21 08/16/23 release cholecalciferol (vitamin D3) 50 50 mcg PO DAILY 08/16/23 08/16/23 mcg (2,000 unit) capsule (Vitamin D3) escitalopram oxalate 20 mg tablet 20 mg PO DAILY 08/16/23 08/16/23 Previous Rx's ?Medication ?Instructions ?Recorded cefuroxime axetil 500 mg tablet 500 mg PO BID #24 tabs 08/18/23 Allergies Allergy/AdvReac Type Severity Reaction Status Date / Time No Known Drug Allergies Allergy Unknown U Verified 12/10/23 14:22 Review of Systems 2 Review of Systems: Yes all other systems are reviewed and are negative PMFSH Past Medical History Medical History Anemia Vitamin B 12 deficiency Neuropathy CHF (congestive heart failure) Elevated cholesterol Depression CVA (cerebral vascular accident) CKD (chronic kidney disease) Asthma Type 2 diabetes mellitus with unspecified complications Essential hypertension Atherosclerotic cardiovascular disease Ischemic cardiomyopathy Surgical History History of bilateral cataract extraction Hx of cardiac catheterization Social History Social History Household Members: Family Household Members Other:: nephew Housing: Apartment Are you a primary director of primary care to a significant other at home: No Do you presently have visiting nurse or other home services: Yes ([facility]) Alcohol intake: former Patient Tobacco Use Status: Former Tobacco user Quit Date: 04/2021 Tobacco use type: Cigarette Smoked in Last 30 Days: No Use of substances other than those prescribed or required for medical reasons: No Advance Directives: Yes Advance Directives on File: Yes Advance Directives Date on File: 08/16/23 Do you have a plan to hurt others: No Plan service: No Physical Exam 2 Vital Signs: Vital Signs: Last Vital Signs Temp 98.8 F 12/10/23 14:37 Pulse 67 12/10/23 14:37 Resp 22 H 12/10/23 14:37 BP 115/46 L 12/10/23 14:37 Pulse Ox 96 12/10/23 14:37 O2 Del Method Room Air 12/10/23 14:37 BMI result Body Mass Index 31.6 Appearance: Alert. Oriented X3. No acute distress. Head: normocephalic, atraumatic. Eyes: Pupils equal, round and reactive to light. ENT: Pharynx normal. No tonsillar swelling or exudate. Neck: Normal inspection. Neck supple. No midline tenderness. CVS: Normal heart rate and rhythm. Pulses normal. Respiratory: No respiratory distress. Breath sounds normal. Left lateral chest wall tenderness Abdomen: Obese, Soft and nontender. +BS x4 Back: Significant areas of ecchymosis all over the left flank and left back. Area is tender to touch. No midline tenderness of the spine. Skin: Skin warm and dry. Normal skin color. Normal skin turgor. No rashes. Extremities: No lower extremity edema. No joint swelling. Left elbow with tenderness, ecchymosis, held in flexion and adduction. Limited range of motion due to pain. Nontender proximal humerus on the left side. Neuro/psych: Oriented X 3. Left-sided weakness in the upper and lower extremity. Left upper extremity contracted. CN II-XII intact. Normal speech and cognition. Medications Administered Discontinued Medications Generic Name Dose Route Start Last Admin Trade Name Afshinq PRN Reason Stop Dose Admin Iohexol 100 ml 12/10/23 16:10 12/10/23 16:10 Iohexol 350 Mg/Ml 100 Ml Infus..Btl IV 12/10/23 16:11 85 ml ONCE ONE Administration Medical Decision Making Medical Decision Making [facility] Narrative: 68-year-old female with multiple comorbidities including CVA with left-sided weakness, diabetes, ischemic cardiomyopathy, UTI, who presents to the ER for evaluation of recurrent falls. She states she fell twice yesterday and once today. She has pain in the left elbow, left-sided ribs and back pain. She is significant ecchymosis on her left flank. She reports headache. CT scan of her head, cervical spine and chest, abdomen pelvis have been ordered. Concern for traumatic injury. Not safe dispo home. Signed out to MATIAS March for follow-up on CT scans Differential Diagnosis Differential Diagnoses: The differential diagnosis associated with the presentation includes Contusion, hematoma, rib fracture, concussion, closed head injury, recurrent stroke, internal bleeding, UTI Admission/Observation Consideration of admission/observation: Escalation of care including admission/observation considered Lab Data [facility] Lab Attestation statement: I reviewed the patient's lab results. Stable normocytic anemia, doubt any active bleeding in her flank ecchymosis with stable H&H. 12/10/23 15:07 12/10/23 15:07 Labs: Lab Results 12/10/23 12/10/23 Range/Units 14:43 15:07 WBC 8.6 (4.8-10.8) X10*3/uL RBC 3.56 L (4.20-5.50) X10*6/uL Hgb 10.5 L (12.0-16.0) g/dl Hct 31.7 L (37.0-47.0) % MCV 89.0 (80.0-98.0) fL MCH 29.5 (27.0-33.0) pg MCHC 33.1 (31.0-35.0) g/dl RDW 12.8 (11.0-16.0) % Plt Count 267 (160-400) X10*3/uL MPV 9.5 (9.4-12.3) fL Immature Gran % (Auto) 0.2 (0.0-0.4) % Neut % (Auto) 75.7 H (45-73) % Lymph % (Auto) 11.3 L (20-40) % Bonner % (Auto) 10.1 (2-11) % Eos % (Auto) 2.3 (0-4) % Baso % (Auto) 0.4 (0-2) % Lymph # (Auto) 1.0 L (1.2-4.9) X10*3/uL Bonner # (Auto) 0.9 (0.1-1.2) X10*3/uL Eos # (Auto) 0.2 (0.0-0.4) X10*3/uL Baso # (Auto) 0.0 (0.0-0.2) X10*3/uL Abs Immat Gran (auto) 0.02 (0.00-0.03) X10*3/uL Absolute Neuts (auto) 6.5 (2.0-8.3) x10*3/uL Absolute Nucleated RBC 0.000 (0.0-0.012) X10*3/uL Nucleated RBC % (auto) 0.0 (0.0-0.2) /100WBC Sodium 136 (135-145) mmol/L Potassium 4.9 D (3.3-5.1) mmol/L Chloride 99 (96-108) mmol/L Carbon Dioxide 21 L (22-29) mmol/L Anion Gap 21 H (12-20) BUN 19 H (9-16) mg/dL Creatinine 1.14 (0.5-1.4) mg/dL Estim Creat Clear Calc 45.2 Estimated GFR 48 POC Glucose 149 H (60-115) mg/dL Random Glucose 164 H (60-115) mg/dL Calcium 9.1 D (8.4-10.2) mg/dL Magnesium 1.4 L* (1.6-2.6) mg/dL Total Bilirubin 0.3 (0.0-1.0) mg/dL Direct Bilirubin 0.1 (0.0-0.5) mg/dL AST 13 (5-31) U/L ALT 14 (0-31) U/L Alkaline Phosphatase 91 (39-117) U/L Troponin I High Sens < 2.7 (<3.5-17.0) ng/L Total Protein 7.4 (6.5-8.0) g/dL Albumin 3.9 (3.5-5.0) g/dL TSH 3.31 (0.32-4.0) uIU/mL Ethyl Alcohol < 10 mg/dL Independent Interpretation I performed an independent interpretation of an: EKG Interpretation: EKG with normal sinus rhythm, ventricular rate 71 beats per minute, normal OH interval, normal QTC, no ST segment elevations or depressions. Independent Historian Clinical information obtained from an independent historian. History obtained from or confirmed by: EMS External Record Review External record reviewed: Office record and Prior outpatient radiology Prescription Management I considered prescription management with: Pain Medication Chronic Conditions Patient?s care impacted by: Diabetes and Hypertension Critical Care Time Critical Care Time Critical Care Time: No Discharge Plan Discharge Clinical Impression: Recurrent falls Patient Disposition: Still a Patient Prescriptions: No Action cyanocobalamin (vitamin B-12) [Vitamin B-12] 1,000 mcg Tablet 1,000 mcg PO DAILY ascorbic acid (vitamin C) [Vitamin C] 500 mg Tablet 500 mg PO DAILY ferrous sulfate 325 mg (65 mg iron) Tablet 325 mg PO DAILY omeprazole 20 mg Capsule,Delayed Release(Dr/Ec) 20 mg PO DAILY insulin glargine [Lantus Solostar U-100 Insulin] 100 unit/mL (3 mL) Insulin Pen 28 unit SUBCUT QPM docusate sodium [Colace] 100 mg Capsule 100 mg PO DAILY PRN (Reason: Constipation) cholecalciferol (vitamin D3) [Vitamin D3] 50 mcg (2,000 unit) capsule 50 mcg PO DAILY escitalopram oxalate 20 mg tablet 20 mg PO DAILY cefuroxime axetil 500 mg tablet 500 mg PO BID Qty: 24 0RF amlodipine 10 mg tablet 10 mg PO DAILY aspirin [Adult Low Dose Aspirin] 81 mg tablet,delayed release (DR/EC) 81 mg PO DAILY atorvastatin 40 mg tablet 40 mg PO DAILY bupropion HCl 150 mg tablet sustained-release 12 hr 150 mg PO BID carvedilol 25 mg tablet 25 mg PO BID Rx Instructions: must administer with a meal/food folic acid 1 mg tablet 1 mg PO DAILY furosemide 20 mg tablet 20 mg PO DAILY gabapentin 300 mg capsule 300 mg PO BEDTIME metformin 1,000 mg tablet 1,000 mg PO BID Print Language: Angolan
--- NOTE | 2023-12-10 14:28 | ECG_ITS ---
Test Reason : FALL Blood Pressure : / mmHG Vent. Rate : 071 BPM Atrial Rate : 071 BPM P-R Int : 134 ms QRS Dur : 082 ms QT Int : 424 ms P-R-T Axes : 057 -16 012 degrees QTc Int : 460 ms Normal sinus rhythm Septal infarct , age undetermined Abnormal ECG When compared with ECG of 16-AUG-2023 01:26, Nonspecific T wave abnormality now evident in Inferior leads Referred By: Janey Hummel Electronically Signed By:Boni Gonzalez
[2023-12-10 14:33] VITALS: BP 134/72; PULSE 72; O2SAT 97
[2023-12-10 14:37] VITALS: BP 115/46; PULSE 67; RESP 22; TEMP 37.1; O2SAT 96
[2023-12-10 14:53] LABS: Glucose, Whole Blood 149 mg/dL (60-115)
--- NOTE | 2023-12-10 14:59 | PC.NURSE ---
L side of abd/chest significantly bruised, bailey wrap from home removed from L arm, bruising noted on elbow.
[2023-12-10 15:13] LABS: MANUAL DIFF FLAG NO
[2023-12-10 15:17] LABS: Basophils Percent Auto 0.4 % (0-2); Eosinophils Absolute Auto 0.2 X10*3/uL (0.0-0.4); Eosinophils Percent Auto 2.3 % (0-4); Hematocrit 31.7 % (37.0-47.0); Hemoglobin 10.5 g/dl (12.0-16.0); Imm Gran Abs Auto 0.02 X10*3/uL (0.00-0.03); Imm Gran Pct Auto 0.2 % (0.0-0.4); Lymphocytes Percent Auto 11.3 % (20-40); Mean Corpuscular HGB Conc 33.1 g/dl (31.0-35.0); Mean Corpuscular Hemoglobin 29.5 pg (27.0-33.0); Mean Platelet Volume 9.5 fL (9.4-12.3); Monocytes Absolute Auto 0.9 X10*3/uL (0.1-1.2); Monocytes Percent Auto 10.1 % (2-11); Neutrophils Absolute Auto 6.5 x10*3/uL (2.0-8.3); Neutrophils Percent Auto 75.7 % (45-73); Platelet Count 267 X10*3/uL (160-400); Red Blood Count 3.56 X10*6/uL (4.20-5.50); Red Cell Distribution Width 12.8 % (11.0-16.0); White Blood Count 8.6 X10*3/uL (4.8-10.8)
[2023-12-10 15:42] LABS: Troponin-I High Sensitivity < 2.7 ng/L (<3.5-17.0)
[2023-12-10 15:49] LABS: Alanine Aminotransferase 14 U/L (0-31); Albumin Level 3.9 g/dL (3.5-5.0); Alkaline Phosphatase 91 U/L (39-117); Anion Gap 21 (12-20); Aspartate Amino Transferase 13 U/L (5-31); Bilirubin Direct 0.1 mg/dL (0.0-0.5); Bilirubin Total 0.3 mg/dL (0.0-1.0); Blood Urea Nitrogen 19 mg/dL (9-16); Calcium 9.1 mg/dL (8.4-10.2); Carbon Dioxide 21 mmol/L (22-29); Chloride 99 mmol/L (96-108); Creatinine Clr Calc Pharmacy 45.2; Estimated Glomerular Filt Rate 48; Ethanol < 10 mg/dL; Glucose Random 164 mg/dL (60-115); Potassium 4.9 mmol/L (3.3-5.1); Sodium 136 mmol/L (135-145); Total Protein 7.4 g/dL (6.5-8.0)
[2023-12-10 15:50] LABS: Magnesium 1.4 mg/dL (1.6-2.6)
[2023-12-10 15:56] LABS: TSH reflex Free T4 3.31 uIU/mL (0.32-4.0)
[2023-12-10] MEDS: iohexoL 350 MG/ML 100 ML INFUS..BTL IV (16:10)
[2023-12-10] MEDS: Magnesium Sulfate/H2O 2 GM/50 ML PIGGYBACK IV (16:55)
[2023-12-10 17:56] VITALS: BP 129/47; PULSE 79; RESP 28; TEMP 36.6; O2SAT 95
--- NOTE | 2023-12-10 18:00 | MHC.EDTECH ---
Bed pad changed and patient repositioned
[2023-12-10 19:23] VITALS: BP 109/42; PULSE 80; RESP 20; TEMP 36.9; O2SAT 94
[2023-12-10 20:20] LABS: Glucose, Whole Blood 87 mg/dL (60-115)
--- NOTE | 2023-12-10 20:28 | MHC.EDTECH ---
PATIENT ATE 100 % OF [employer] SANDWICH AND DRANK 120 ML WATER ,PATIENT BELONINGS LIST DONE ,AND URINE SAMPLE COLLECTED AND SENT TO LAB ,PT COMFORTABLE WATCHING TELEVISION ,CALL DEL VALLE WITHIN PATIENT REACH .
[2023-12-10 20:37] LABS: Appearance Urine Clear; Color Urine Yellow; Glucose Urine UA Negative (Negative); Leukocyte Esterase Urine Small (1+) (Negative); Nitrite Urine Negative (Negative); PH 7.5 (5.0-9.0); Specific Gravity - Urine >= 1.030 (1.005-1.025); UMIC TRIGGER UACC YES; Urine Blood Negative (Negative); Urine Ketones Negative (Negative); Urine Protein Negative (Neg-Trace)
[2023-12-10 20:48] LABS: Bacteria Urine 1+ (None Seen); Hyaline Casts Urine 0-2 /LPF (0-2); RBC Urine 0-2 /HPF (0-2); UACC Culture Trigger YES; WBC Urine 0-5 /HPF (0-5)
[2023-12-10 20:52] LABS: Amphetamine Screen Urine Not Detected (Not Detect); Barbiturates, Urine Not Detected (Not Detect); Benzodiazepines Screen Urine Not Detected (Not Detect); Buprenorphine Scr Not Detected (Not Detect); Cannabinoid Screen Urine Not Detected (Not Detect); Cocaine Screen Urine Not Detected (Not Detect); Fentanyl, urine Not Detected (Not Detect); Methadone Screen, Urine Not Detected (Not Detect); Opiate Screen Urine Not Detected (Not Detect); Oxycodone Screen Urine Not Detected (Not Detect); Phencyclidine Screen Urine Not Detected (Not Detect)
[2023-12-10 21:46] VITALS: BP 102/45; PULSE 85; RESP 16; TEMP 36.6; O2SAT 97
--- NOTE | 2023-12-10 21:47 | MHC.EDTECH ---
2200 ROUNDING DONE ,VITALS TAKEN ,PATIENT WAS REPOSITION AND BOOSTED UP IN BED .PATIENT RESTING QUIETLY ,NO APPARENT DISTRESS NOTED .
[2023-12-11] VITALS (10 sets, daily range): BP systolic 114–143; BP diastolic 39–65; PULSE 56–81; RESP 16–20; TEMP 36.3–37.2; O2SAT 94–98
--- NOTE | 2023-12-11 01:02 | PC.NURSE ---
report called to overflow
[2023-12-11 01:07] LABS: Glucose, Whole Blood 161 mg/dL (60-115)
[2023-12-11] MEDS: Ketorolac Tromethamine 30 MG/ML VIAL IVPUSH (01:56)
--- NOTE | 2023-12-11 02:01 | PC.NURSE ---
Patient arrived to ED overflow from the main ED at 01:15; care assumed by literary writer at this time. Pt is here awaiting PT/CM consult for frequent falls at home. Pt is primarily Cuban speaking. Fire Production Operator used at pt's bedside. A&Ox4. She states she lives at home with her sister and nephew and has a CUSTOM TAILOR APPRENTICE that sees her for two and a half hours each morning Monday through Monday to assist her with cooking, feeding, bathing, and medications. Pt states she has fallen four times in the last four days; states the most recent fall was onto her left side and arm at the mondge and that she had her cane with her but that it was a little bit far away from me prior to the fall. She denies vision changes, h/a, dizziness, chest pain, sob, and n/v. Of note, pt has a hx of CVA with residual left weakness. She denies numbness and tingling in all extremities and has +cms in fingers bilaterally. +dp pulses. Limited ROM to LUE with +guarding note. Pt c/o 10/10 pain on arrival. Bruising noted to left flank is soft to palpation. Fungal rash noted to arm-pits, abdominal folds, and under breasts. Covering Dr. Kendall Thurman notified of pain and skin assessment via telephone; 1x order placed for IV toradol, given via present right forearm #22 IV with effectiveness pending. Pt educated on medication with sports betting manager present and denies any known medication allergies. Skin care and bed bath provided. Pt placed in fresh hospital gown. Purewick placed 2/2 weakness/ decreased mobility. Breathing is even and unlabored without distress on RA. VSS. Recent POC was 161 @ 01:04. Only belonging present with pt is a single nightgown in a patient belongings bag. Bed low/locked with alarm on and red fall socks. Pt visible from nursing station. Will continue to monitor pt safety and comfort for remainder of literary writer's scheduled care.
[2023-12-11 07:35] LABS: Glucose, Whole Blood 122 mg/dL (60-115)
--- NOTE | 2023-12-11 09:20 | PC.NURSE ---
PT IS A/O X 4 NO SOB/DUC NOTED SPEAKS IN FULL SENTENCES. PT ATE 100% OF BREAKFAST. L SIDE WEAKNESS (HX OF CVA). PT DENIES ANY PAIN/DISC. NO EDEMA NOTED. PT AWARE OF PLAN OF CARE. WILL CONTINUE TO MONITOR.
--- NOTE | 2023-12-11 09:55 | PC.NURSE ---
PHYSICAL THERAPY AT BEDSIDE, PT AWARE OF PLAN OF CARE.
[2023-12-11 10:14] LABS: COVID-19 Test Negative (Negative); IDNOW Serial# 152EDE1D
--- NOTE | 2023-12-11 14:35 | MHC.EDTECH ---
Patient linens changed. Patient washed up and assisted out of chair and back into bed. Patient repositioned to left side. Patient states she is comfortable. Call cifuentes placed within reach. Patient resting, respirations even and unlabored.
--- NOTE | 2023-12-11 14:36 | MHC.CM.ED ---
Addendum entered by Babs Gomes 12/11/23 14:51: [facility] is able to offer a bed and is in the process of obtaining insurance auth. Original Note: Received case management consult overnight. Patient came to the ER due to a fall. Patient continues to c/o shoulder pain. Physical therapy eval completed. Short term rehab is recommended. Met with patient and interpreter and translator in regards to discharge planning. Patient lives with her sister and nephew, ambulates with a cane and has MANUFACTURING LEADER hours through [facility]. Natty Padilla is patient's MANUFACTURING LEADER. PCP verified. Copy of HCP verified to be on file. List of facilities contracted with patient's insurance a provided from [facility]. Facility choices: 1) [facility] 2) [facility] 3) [facility]. Referrals made via [facility]. Patient would like to speak to her MANUFACTURING LEADER. However, patient does not have her cell phone with her or know her MANUFACTURING LEADER's telephone number. Continue to monitor for d/c needs.
--- NOTE | 2023-12-11 18:18 | PC.NURSE ---
[facility] medical interpreture utilized ptreporting pain asking for prn ketorolac. this rn made david maxwell aware of pt request. awaiting new orders
--- NOTE | 2023-12-11 19:39 | PC.NURSE ---
late entry- @1835 this rn attempted to medicate pt with iv ketorolac, iv blew this rn made david maxwell aware we'd need to change medication route. no new orders placed
[2023-12-11] MEDS: Ketorolac Tromethamine 30 MG/ML VIAL IM (19:59)
[2023-12-11 20:24] LABS: Glucose, Whole Blood 255 mg/dL (60-115)
[2023-12-11] MEDS: carvediloL 25 MG TABLET PO (20:55)
[2023-12-11] MEDS: Insulin Glargine,Hum.rec.anlog 100 UNIT/ML 10 ML VIAL 28 UNIT SUBCUT (20:55)
[2023-12-11] MEDS: Gabapentin 300 MG CAPSULE PO (20:55)
[2023-12-12 05:04] VITALS: BP 123/39; RESP 70; TEMP 36.4
[2023-12-12] MEDS: Omeprazole 20 MG CAPSULE.DR PO (05:12)
[2023-12-12 07:15] LABS: Glucose, Whole Blood 157 mg/dL (60-115)
[2023-12-12 08:48] VITALS: PULSE 80
[2023-12-12] MEDS: carvediloL 25 MG TABLET PO (08:48)
[2023-12-12] MEDS: Cyanocobalamin (Vitamin B-12) 1,000 MCG TABLET 1000 MCG PO (08:48)
[2023-12-12] MEDS: Cholecalciferol (Vitamin D3) 25 MCG TABLET 50 MCG PO (08:49)
[2023-12-12] MEDS: Furosemide 20 MG TABLET PO (08:49)
[2023-12-12] MEDS: amLODIPine Besylate 10 MG TABLET PO (08:49)
[2023-12-12] MEDS: buPROPion HCl XL 300 MG TAB.ER.24H PO (08:49)
[2023-12-12] MEDS: Ferrous Sulfate 324 MG TABLET.DR PO (08:50)
[2023-12-12] MEDS: Escitalopram Oxalate 20 MG TABLET PO (08:50)
[2023-12-12] MEDS: cefuroxime axetiL 250 MG TABLET PO ×2 (08:50→10:50)
[2023-12-12] MEDS: Ascorbic Acid 500 MG TABLET PO (08:50)
[2023-12-12] MEDS: Folic Acid 1 MG TABLET PO (08:50)
[2023-12-12 11:09] LABS: Glucose, Whole Blood 321 mg/dL (60-115)
--- NOTE | 2023-12-12 12:19 | MHC.CM.ED ---
Addendum entered by Babs Gomes 12/12/23 13:05: Patient's SENIOR SOFTWARE QA ANALYST, Eron, made aware of d/c via telephone at [phone]. Original Note: Patient remains in ER. [facility] [employer] [facility] [employer] has obtained insurance auth. Patient can leave at 4pm. Padmini MELENDEZ booked. Med nec with chart. Patient, Kim RN and Maye SALCEDO aware. Continue to monitor for d/c needs.
--- NOTE | 2023-12-12 13:23 | PC.NURSE ---
Reported POC of 321 to PA on duty for overflow and no new orders given at this time.
[2023-12-12 14:00] VITALS: BP 110/56; PULSE 62; RESP 18; TEMP 36.8; O2SAT 95
[2023-12-12] MEDS: Acetaminophen 325 MG TABLET 975 MG PO (14:48)
--- NOTE | 2023-12-12 15:55 | PC.NURSE ---
Nurse to nurse report given to Olesya at [facility] in [place]. EMS to come and cone picker at 4 pm
[2023-12-12 16:53] VITALS: BP 124/82; PULSE 63; RESP 12; TEMP 36.9; O2SAT 95
== END 2023-12-12 16:54 | disposition skilled nursing facility (03) ==
PROVIDERS: Physician Assistant; Emergency Provider Emergency Medicine; PCP General Practice
DX: R29.6 Repeated falls (principal); M25.522 Pain in left elbow; R07.81 Pleurodynia; M54.9 Dorsalgia, unspecified; B95.2 Enterococcus as the cause of diseases classified elsewhere; E11.22 Type 2 diabetes mellitus with diabetic chronic kidney disease; I12.9 Hypertensive chronic kidney disease with stage 1 through stage 4 chronic kidney disease, or unspecified chronic kidney disease; N18.9 Chronic kidney disease, unspecified; I69.354 Hemiplegia and hemiparesis following cerebral infarction affecting left non-dominant side
CPT/HCPCS: 36415; 70450; 71260; 72125; 73080; 74177; 80048; 80076; 80307; 81001; 82947; 83735; 84443; 84484; 85025; 87086; 87088; 87186; 87635; 93005; 96365; 96366; 96372; 96374; 97161; 99285; J1885; J3475; Q9967

== ENCOUNTER → 2023-12-10 14:28 | Outpatient (BNV) | payer OTHER, SELFPAY | PROVIDERS: Emergency Provider Emergency Medicine; Visit Provider Internal Medicine Cardiovascular Disease | DX: R94.31 Abnormal electrocardiogram [ECG] [EKG] (principal) | CPT/HCPCS: 93010 ==

== ENCOUNTER 2024-03-11 13:09 | Outpatient (REF) | payer OTHER, SELFPAY ==
[2024-03-11 15:17] LABS: CT PCR NOT DETECTED (Not Detect.); NG PCR NOT DETECTED (Not Detect.)
[2024-03-11 15:52] LABS: Bacterial Vaginosis PCR NEGATIVE (Negative); Candida Group PCR NOT DETECTED (Not Detect); Candida glab krusei PCR NOT DETECTED (Not Detect); Trichomonas vaginalis PCR NOT DETECTED (Not Detect)
[2024-03-13 14:23] LABS: HPV mRNA E6/E7 Not Detected (Not Detected)
== END 2024-03-11 13:10 | disposition home or self-care (01) ==
LOC: HO.HHCLNP 13:09
PROVIDERS: Visit Provider General Practice
DX: Z12.4 Encounter for screening for malignant neoplasm of cervix (principal); Z11.51 Encounter for screening for human papillomavirus (HPV); Z20.2 Contact with and (suspected) exposure to infections with a predominantly sexual mode of transmission
CPT/HCPCS: 0352U; 87491; 87591; 87624; 88175

== ENCOUNTER 2025-03-01 12:36 | Emergency (ER) | payer OTHER, SELFPAY ==
[2025-03-01 12:58] VITALS: BP 131/50; PULSE 57; RESP 18; TEMP 36.9; O2SAT 98; BMI 29.4
--- NOTE | 2025-03-01 13:13 | ED.NAVMDI ---
HPI - Nausea/Vomiting/Diarrhea General Chief complaint: Nausea/Vomiting/Diarrhea Stated complaint: Stomach pain and diarrhea Time Seen by Provider: 03/01/25 13:11 Source: patient, family and diamond polisher Mode of arrival: ambulatory Limitations: language barrier History of Present Illness ED Provider: Birdei Brewster APRN HPI Narrative: 69 year old Martiniquais speaking female with past medical history of type 2 diabetes mellitus, hypertension, hyperlipidemia, UTI, CVA with residual left sided weakness and ischemic cardiomyopathy here with complaints of non-bloody diarrhea x 2-3 months. Less then 10 episodes daily. Occurs after eating, Episodes are preceded with abdominal cramping. No nausea, vomiting, fevers, chills, weakness, dizziness. No recent antibiotics, no recent travel or hospitlizations or sick contact. Associated nausea: No Related Data Home Medications ?Medication ?Instructions ?Recorded ?Confirmed amlodipine 10 mg tablet 10 mg PO DAILY 12/08/20 12/11/23 bupropion HCl 150 mg tablet,12 hr 150 mg PO BID 12/08/20 12/11/23 sustained-release carvedilol 25 mg tablet 25 mg PO BID 12/08/20 12/11/23 folic acid 1 mg tablet 1 mg PO DAILY 12/08/20 12/11/23 furosemide 20 mg tablet 20 mg PO DAILY 12/08/20 12/11/23 gabapentin 300 mg capsule 300 mg PO BEDTIME 12/08/20 12/11/23 metformin 1,000 mg tablet 1,000 mg PO BID 12/08/20 12/11/23 ascorbic acid (vitamin C) 500 mg 500 mg PO DAILY 06/16/21 12/11/23 tablet (Vitamin C) cyanocobalamin (vitamin B-12) 1,000 mcg PO DAILY 06/16/21 12/11/23 1,000 mcg tablet (Vitamin B-12) docusate sodium 100 mg capsule 100 mg PO DAILY PRN Constipation 06/16/21 12/11/23 (Colace) ferrous sulfate 325 mg (65 mg 325 mg PO DAILY 06/16/21 12/11/23 iron) tablet insulin glargine 100 unit/mL (3 28 unit subcut QPM 06/16/21 12/11/23 mL) subcutaneous pen (Lantus Solostar U-100 Insulin) omeprazole 20 mg capsule,delayed 20 mg PO DAILY 06/16/21 12/11/23 release cholecalciferol (vitamin D3) 50 50 mcg PO DAILY 08/16/23 12/11/23 mcg (2,000 unit) capsule (Vitamin D3) escitalopram oxalate 20 mg tablet 20 mg PO DAILY 08/16/23 12/11/23 Previous Rx's ?Medication ?Instructions ?Recorded cefuroxime axetil 250 mg tablet 250 mg PO BID 6 days #12 tabs 12/12/23 Allergies Allergy/AdvReac Type Severity Reaction Status Date / Time No Known Drug Allergies Allergy Unknown U Verified 03/01/25 13:00 Review of Systems Review of Systems: Yes all other systems are reviewed and are negative Constitutional: Constitutional: Reports no additional constitutional complaints, Denies body ache(s), Denies chills, Denies fever(s), Denies headache(s) and Denies weakness Eyes: Eyes: Reports no additional eye complaints and Denies change in vision ENT: Reports system reviewed and no additional complaints, except as documented, Denies dizziness, Denies headache(s), Denies nasal congestion, Denies nasal discharge and Denies neck pain Cardiovascular: Cardiovascular: Reports no additional cardiovascular complaints, Denies chest pain, Denies leg edema and Denies dyspnea Respiratory: Respiratory: Reports no additional respiratory complaints, Denies cough and Denies dyspnea Gastrointestinal: Gastrointestinal: Reports no additional gastrointestinal complaints, Denies abdominal pain, Reports diarrhea, Denies nausea and Denies vomiting Genitourinary: Genitourinary: Reports no additional female genitourinary complaints and Denies urinary incontinence Musculoskeletal: Musculoskeletal: Reports no additional musculoskeletal complaints, Denies back pain, Denies arthralgias, Denies joint swelling, Denies neck pain, Denies numbness and Denies tingling Integumentary/Breasts: Skin/Breast: Reports system reviewed and no additional complaints, except as docu and Denies rash Neurologic: Reports system reviewed and no additional complaints, except as documented, Denies Abnormal speech present, Denies dizziness, Denies headache(s), Denies numbness, Denies tingling and Denies weakness PMFSH Past Medical History Attestation statement: The following information was validated with the patient. Source: old records reviewed and nursing notes reviewed Medical History Anemia Vitamin B 12 deficiency Neuropathy CHF (congestive heart failure) Elevated cholesterol Depression CVA (cerebral vascular accident) CKD (chronic kidney disease) Asthma Type 2 diabetes mellitus with unspecified complications Essential hypertension Atherosclerotic cardiovascular disease Ischemic cardiomyopathy Surgical History History of bilateral cataract extraction Hx of cardiac catheterization Social History Social History Household Members: Family Household Members Other:: nephew Housing: Apartment Are you a primary manager respiratory care to a significant other at home: No Do you presently have visiting nurse or other home services: Yes (tarik SINGH) Alcohol intake: former Patient Tobacco Use Status: Former Tobacco user Tobacco use type: Cigarette Advance Directives: Yes Advance Directives on File: Yes Advance Directives Date on File: 08/16/23 service: No Physical Exam Vital Signs: Vital Signs: Last Vital Signs Temp 98.5 F 03/01/25 12:58 Pulse 57 03/01/25 12:58 Resp 18 03/01/25 12:58 BP 131/50 L 03/01/25 12:58 Pulse Ox 98 03/01/25 12:58 O2 Del Method Room Air 03/01/25 12:58 BMI result Body Mass Index 29.4 Const: General: cooperative, healthy appearing, comfortable and no acute distress Orientation/consciousness: patient oriented x3 Limitations: no limitations HEENT: Head: Yes normal to inspection Ears: hearing grossly normal bilaterally General nose exam: Normal external nose present Face and sinus: Yes normal facial exam Mouth: Normal oral and palatal mucosa present Throat: Yes posterior oropharynx normal Eyes: General: appearance normal, both eyes and all related structures Pupils: Equal, round and reactive pupils present Neck: Neck: Yes normal visual inspection Chest: Chest palpation & inspection: normal inspection of the chest Resp: Effort & Inspection: normal respiratory effort Auscultation: clear to auscultation bilaterally Cardio: Rate: regular rate Rhythm: regular rhythm Peripheral pulses: Peripheral pulses 2+ throughout GI: Inspection: Yes normal to inspection Palpation (GI): Soft to palpation and nontender Auscultation: normal bowel sounds Back/Spine/Pelvis: Thoracic/Lumbar Spine: thoracic and lumbar spine normal to inspection Skin: General skin exam: no rashes or lesions noted Neuro: General: patient oriented x3, no focal motor deficits and normal sensation to monofilament Cranial nerves: Yes Equal, round and reactive pupils present Cognition (Neuro): normal cognition Speech: No Abnormal speech present Gait exam (Neuro): Normal gait present Motor exam (neuro): 5/5 motor strength present throughout Extrem: General: Yes normal to inspection Course Course Course Narrative: 1730-labs are unremarkable. C diff is negative. GI panel is pending. Seems that diarrhea is a chronic problem and has been ongoing for longer than even was initially stated. I did recommend that they follow up outpatient with GI. She can use Imodium if there is no infectious cause. We also discussed dietary changes. Reviewed worrisome signs and symptoms of when to return to the emergency room. Comfortable plan for discharge home Medical Decision Making Medical Decision Making [facility] Narrative: 69 year old Martiniquais speaking female with past medical history of type 2 diabetes mellitus, hypertension, hyperlipidemia, UTI, CVA with residual left sided weakness and ischemic cardiomyopathy here with complaints of non-bloody diarrhea x 2-3 months. Less then 10 episodes daily. Occurs after eating, Episodes are preceded with abdominal cramping. No nausea, vomiting, fevers, chills, weakness, dizziness. No recent antibiotics, no recent travel or hospitlizations or sick contact. Abdomen soft/nontender. +BS. Patient appears well hydrated. VSS. Will obtain labs, stool studies. Differential Diagnosis Differential Diagnoses: The differential diagnosis associated with the presentation includes infectious diarrhea, c diff Low suspician for diverticulitis, SBO, ishemic colitis Admission/Observation Consideration of admission/observation: Escalation of care including admission/observation considered Lab Data [facility] Lab Attestation statement: I reviewed the patient's lab results. 03/01/25 13:54 03/01/25 13:54 Labs: Lab Results 03/01/25 03/01/25 03/01/25 Range/Units 13:54 15:49 17:22 WBC 8.5 (4.8-10.8) X10*3/uL RBC 3.65 L (4.20-5.50) X10*6/uL Hgb 11.4 L (12.0-16.0) g/dl Hct 33.7 L (37.0-47.0) % MCV 92.3 (80.0-98.0) fL MCH 31.2 (27.0-33.0) pg MCHC 33.8 (31.0-35.0) g/dl RDW 12.6 (11.0-16.0) % Plt Count 305 (160-400) X10*3/uL MPV 9.7 (9.4-12.3) fL Immature Gran % (Auto) 0.4 (0.0-0.4) % Neut % (Auto) 71.6 (45-73) % Lymph % (Auto) 19.1 L (20-40) % [place] % (Auto) 5.5 (2-11) % Eos % (Auto) 3.2 (0-4) % Baso % (Auto) 0.2 (0-2) % Lymph # (Auto) 1.6 (1.2-4.9) X10*3/uL [place] # (Auto) 0.5 (0.1-1.2) X10*3/uL Eos # (Auto) 0.3 (0.0-0.4) X10*3/uL Baso # (Auto) 0.0 (0.0-0.2) X10*3/uL Abs Immat Gran (auto) 0.03 (0.00-0.03) X10*3/uL Absolute Neuts (auto) 6.1 (2.0-8.3) x10*3/uL Absolute Nucleated RBC 0.000 (0.0-0.012) X10*3/uL Nucleated RBC % (auto) 0.0 (0.0-0.2) /100WBC Sodium 143 (135-145) mmol/L Potassium 4.4 (3.3-5.1) mmol/L Chloride 108 (96-108) mmol/L Carbon Dioxide 22 (22-29) mmol/L Anion Gap 17 (12-20) BUN 15 (9-16) mg/dL Creatinine 0.93 (0.5-1.4) mg/dL Estim Creat Clear Calc 52.7 Estimated GFR > 60 Random Glucose 112 (60-115) mg/dL Calcium 9.5 (8.4-10.2) mg/dL Magnesium 1.5 L (1.6-2.6) mg/dL Total Bilirubin 0.4 (0.0-1.0) mg/dL AST 30 (5-31) U/L ALT 25 (0-31) U/L Alkaline Phosphatase 96 (39-117) U/L Total Protein 6.9 (6.5-8.0) g/dL Albumin 4.0 (3.5-5.0) g/dL Lipase 12 (8-78) U/L Urine Color Yellow Urine Appearance Clear Urine pH 5.5 (5.0-9.0) Ur Specific [place] 1.015 (1.005-1.025) Urine Protein Negative (Neg-Trace) mg/dL Urine Glucose (UA) Negative (Negative) mg/dL Urine Ketones Negative (Negative) mg/dL Urine Blood Negative (Negative) Urine Nitrite Negative (Negative) Ur Leukocyte Esterase Trace H (Negative) Urine RBC 0-2 (0-2) /HPF Urine WBC 0-5 (0-5) /HPF Urine WBC Clumps Present Ur Squamous Epith Cells 0-2 (0-2) /HPF Urine Bacteria 4+ (None Seen) Hyaline Casts 3-5 (0-2) /LPF C. difficile Tox B Gene NEGATIVE (Negative) Discharge Plan Discharge Clinical Impression: Diarrhea Patient Disposition: Home, Self-Care Instructions: Chronic Diarrhea (ED) Additional Instructions: We sent stool studies. We will call you if these are positive. As this is a chronic problem she may continue to take Imodium as needed. I would recommend that she follow up with a supervisor mixing as you tell me that she has never had a colonoscopy. She will need a referral from her primary care doctor so please have her follow-up with her primary care doctor.' Her urine shows no signs of infection Prescriptions: No Action cyanocobalamin (vitamin B-12) [Vitamin B-12] 1,000 mcg Tablet 1,000 mcg PO DAILY ascorbic acid (vitamin C) [Vitamin C] 500 mg Tablet 500 mg PO DAILY ferrous sulfate 325 mg (65 mg iron) Tablet 325 mg PO DAILY omeprazole 20 mg Capsule,Delayed Release(Dr/Ec) 20 mg PO DAILY insulin glargine [Lantus Solostar U-100 Insulin] 100 unit/mL (3 mL) Insulin Pen 28 unit SUBCUT QPM docusate sodium [Colace] 100 mg Capsule 100 mg PO DAILY PRN (Reason: Constipation) cholecalciferol (vitamin D3) [Vitamin D3] 50 mcg (2,000 unit) capsule 50 mcg PO DAILY escitalopram oxalate 20 mg tablet 20 mg PO DAILY cefuroxime axetil 250 mg tablet 250 mg PO BID 6 Days Qty: 12 0RF amlodipine 10 mg tablet 10 mg PO DAILY bupropion HCl 150 mg tablet sustained-release 12 hr 150 mg PO BID carvedilol 25 mg tablet 25 mg PO BID Rx Instructions: must administer with a meal/food folic acid 1 mg tablet 1 mg PO DAILY furosemide 20 mg tablet 20 mg PO DAILY gabapentin 300 mg capsule 300 mg PO BEDTIME metformin 1,000 mg tablet 1,000 mg PO BID Referrals: Abhishek Villar MD [Physician, Gastroenterology] - 2 weeks Shantell Herr MD [Primary Care Provider, Internal Medicine] - 1 week Referral Note: F/u ER visit Print Language: Martiniquais
--- OUTSIDE RECORDS SUMMARY | 2025-03-01 13:45 | XMS_ITS | Data Portability ---
Author Organization [facility], [facility] Address [address] [place] [id number] Care Team Providers Care Compliance Professional Name Role Phone HIM CCA OTHER Assessment No assessment recorded. Plan of Treatment Reminders Order Date Submit Date Provider Last Modified By Organization Details Last Modified Time Details Appointments None recorded. Lab None recorded. Referral None recorded. Procedures None recorded. Surgeries None recorded. Imaging electrocard iogram 2023 [facility], [address] [place] [address], [phone] 15:09:00 Medication Orders fluconazole 100 mg tablet 2023 024 [facility], [address] [place] [address], [id number], 11:21:02 Patient TargetsNo targets recorded. Patient InstructionsNo instructions recorded. Reason for Referral None Reported. Results Created Date Observation Date Name Description Value Unit Range Abnormal Flag Note LastModifiedBy Organization Detail LastModifiedTime 01/18/20 24 01/18/2024 elect luis diogr am No observ ation record ed. [address], [phone] 01/18/2024 15:08:56 Result Notes None recorded. Medical Equipment None Reported. Medications Name Sig Start Date Stop Date Status Note LastModified by Organization Details LastModified Time medbox status USE DIRECTED active Not Available Not Available No t Available fluconazole 100 mg tablet Take 0.5 tablets every day by oral route for 7 days. active Not Available Not Available No t Available atorvastatin 40 mg tablet TAKE 1 TABLET BY MOUTH AT BEDTIME active Not Available Not Available No t Available bupropion HCl SR 150 mg tablet,12 hr sustained-re lease TAKE 1 TABLET BY MOUTH TWICE DAILY IN THE MORNING AND IN THE EVENING active Not Available Not Available No t Available carvedilol 25 mg tablet TAKE 1 TABLET BY MOUTH TWICE DAILY IN THE MORNING AND IN THE EVENING WITH FOOD active Not Available Not Available No t Available Vitamin C 500 mg tablet TAKE 1 TABLET BY MOUTH EVERY MORNING WITH IRON active Not Available Not Available No t Available trazodone 50 mg tablet TAKE 1 TO 2 TABLETS BY MOUTH AT BEDTIME active Not Available Not Available No t Available cyanocobalam in (vit B-12) 1,000 mcg tablet TAKE 1 TABLET BY MOUTH EVERY MORNING active Not Available Not Available No t Available aspirin 81 mg tablet,delay ed release TAKE 1 TABLET BY MOUTH EVERY MORNING active Not Available Not Available No t Available acetaminophe n 500 mg tablet TAKE 1 TABLET BY MOUTH EVERY 6 HOURS NEEDED FOR MILD PAIN active Not Available Not Available No t Available terbinafine HCl 250 mg tablet TAKE 1 TABLET BY MOUTH ONCE DAILY active Not Available Not Available No t Available amlodipine 10 mg tablet TAKE 1 TABLET BY MOUTH EVERY MORNING active Not Available Not Available No t Available metformin 1,000 mg tablet TAKE 1 TABLET BY MOUTH TWICE DAILY IN THE MORNING AND IN THE EVENING WITH MEALS active Not Available Not Available N ot Available docusate sodium 100 mg capsule TAKE 1 CAPSULE BY MOUTH AT BEDTIME NEEDED FOR SLEEP active Not Available Not Available No t Available gabapentin 300 mg capsule TAKE 1 CAPSULE BY MOUTH AT BEDTIME active Not Available Not Available No t Available omeprazole 20 mg capsule,kristine yed release TAKE 1 CAPSULE BY MOUTH EVERY MORNING BEFORE BREAKFAST active Not Available Not Available No t Available folic acid 1 mg tablet TAKE 1 TABLET BY MOUTH EVERY MORNING active Not Available Not Available No t Available furosemide 20 mg tablet TAKE 1 TABLET BY MOUTH EVERY MORNING active Not Available Not Available No t Available nystatin 100,000 unit/gram topical powder APPLY TOPICALLY TO Pliegues rojos TWICE DAILY & NEEDED UNTIL HEALED active Not Available Not Available No t Available cefuroxime axetil 500 mg tablet TAKE 1 TABLET BY MOUTH TWICE DAILY UNTIL FINISHED active Not Available Not Available No t Available escitalopram 10 mg tablet TAKE 1 TABLET BY MOUTH EVERY MORNING active Not Available Not Available No t Available escitalopram 20 mg tablet TAKE 1 TABLET BY MOUTH EVERY MORNING active Not Available Not Available No t Available FreeStyle Lite Strips USE DIRECTED TO TEST BLOOD SUGAR TWICE DAILY active Not Available Not Available No t Available FeroSul 325 mg (65 mg iron) tablet TAKE 1 TABLET BY MOUTH EVERY MORNING active Not Available Not Available No t Available Lantus Solostar U-100 Insulin 100 unit/mL (3 mL) subcutaneous pen INJECT 28 UNITS SUBCUTANEOU SLY AT BEDTIME active Not Available Not Available No t Available Easy Touch 31 gauge x 5/16 needle USE DIRECTED ONCE DAILY active Not Available Not Available N ot Available Vitamin D3 50 mcg (2,000 unit) capsule TAKE 1 CAPSULE BY MOUTH EVERY MORNING active Not Available Not Available No t Available TRUEplus Lancets 33 gauge USE DIRECTED TO TEST BLOOD SUGAR EVERY DAY active Not Available Not Available No t Available Vitals Date Recorded Heart rate Respiratory rate Oxygen saturation Oxygen saturation in Arterial blood by Pulse oximetry Body temperature Systolic And Diastolic Provider Name and Address Organization Details Last Updated DateTime 4 85 /min 18 /min 98 % 98 % 98.4 [degF] 152/68 mm[Hg] Not Available [facility] - production 4 13:34:52 Social History None recorded. Functional Status None recorded. Mental Status None recorded. Family History Nothing Reported. Medical History No medical history recorded. Gynecological HistoryNo gynecological history recorded. Obstetrics History GPAL:G 0 P 0 0 0 0 Past Encounters Encounter ID Performer Location Encounter Start Date Encounter Closed Date Diagnosis/Indication Diagnosis SNOMED-CT Code Diagnosis ICD10 Code Diagnosis Note [id number] Key Martini MD [facility] [address] [place] [phone] 01/18/2024 13:34:48 01/18/2024 16:50:26 Candidiasis of skin 91440851 B37.2 As noted, we were called to see this patient regarding concerns of Evaluation in the field was performed by my office clin asst colleague, as noted above, I provided real-time direction and supervisio n for this visit.- persistent rash under breast tissue despite nystatin powder. Also using creams and washcloths - with pain, scant bleeding Impression :- fungal rash persisting despite topical therapy Plan:- wound care nurse visiting tonight- encouraged to keep dry, avoid creams/wet washcloth- renally dosed fluconazol e 50mg daily x 7 days based on EKG with QTc 447 and Cr 1.98 noted 01/08/24 Primary care, considerad ditional wound care education Dispositio n: We discussed the diagnostic uncertaint y of home visits and the risk associated with this. In this case, the patient and I felt this to be an acceptable and reasonable amount of risk given the benefit of avoiding an ED visit. We discussed the need to seek care urgently/e mergently in the setting of any new or worsening serious symptoms, particular ly dizziness, chest pain, LOC, dyspnea, fever, progressiv e rash Health Concerns Section Related Observation LastModified by Organization Detai ls LastModified Time None Recorded Concern Status LastModified by Organization Details LastModified Time None Recorded Advance Directives Directive None Recorded Payers Insurance Date Sequence Insurance Name Policy Number Policy Gardiner Covered Member ID Gardiner Member ID Guarantor Name 11/14/2024 1 [facility] - DOS ON OR AFTER 2022 - DUAL ELIGIBLE - [employer] OPTIONS AND ONE CARE (MEDICARE REPLACEMENT/ADV ANTAGE - HMO) Courtney Valdez [id number] Courtney Valdez Notes Date Note Type Note Provider Name and Address Organization Details Recorded Time 01/18/2024 text/html HPI: Call returned to Courtney Valdez to triage below. Spoke with pt and Sharmin who is on HIPAA. Reports pt given rx for fungal infection under skin. Per FILM LIBRARIAN fungal infection has worsened and now having discharge. No fever. Pt has open skin that is raw and bleeding. Pt has continued using nystatin powder and terbinafine. Pt has had BS WNL. FILM LIBRARIAN is concerned as Rx was given back on 01/07 and rash and discharge has become worse. Advised of disposition, unable to bring pt to [facility]. Agrees to [facility] for evaluation of skin rash and treat. Reviewed home care advise, ER precautions and reasons to call back. .................. .................. .................. .................. .................. .................. .................. ............... CRC Nurse Triage Notes (Norbert Francis): Comments: Reviewed HPI Field Trainer POC Test Results from [facility] XAVIER EKG (1) [14:10] EKG test performed. Attachments uploaded as part of this test result can be found under Documents section. Field Trainer POC Test Results from [facility]ts EKG (2) [14:22] EKG test performed. Attachments uploaded as part of this test result can be found under Documents section. .................. .................. .................. .................. .................. .................. .................. ............... Field Trainer Note From [facility] Betts: Dispatched to above address for evaluation of rash. On arrival patient 68 y/o F, found sitting in bed, AOX4, airway patent, speaking in full sentences, good color, in no apparent distress. Patient Cape Verdean speaking only, using diplomatic interpreter service for translation. Patient reports she has an ongoing rash under both breasts for several weeks now, has been treated by home nursing care and PCP without relief, treatment has included Nystatin powder, unknown creams and some kind of pills, rash has been getting worse. Patients vital signs checked. Secondary assessment, pupils PERRL, airway patent, no JVD, trachea midline, equal chest rise and fall, lungs clear all carreno, abdomen soft non tender, no signs of trauma, good radial pulse, skin pink warm and dry, large moist raw skin under both breasts. Patient has been using clean dry wash cloths to keep dry. Patients daughter reports home nursing has been using powder x1 daily. [facility] contacted, advised of patient complaints and exam findings. C request EKG, will prescribe Fluconazole, advises continued home care and follow up with PCP. 12 lead EKG showed sinus rhythm. Patient advised of prescription, home care and red flags. Patient and family have no additional questions or concerns at this time. SC8 clear. Due to lack of cell administrative receptionist, 12 lead EKG uploaded for [facility] review after clearing scene. EOR. .................. .................. .................. .................. .................. .................. .................. ............... Disposition: Fulfilled Key Martini MD [address] [place] [address],[address], [place], [phone], [place] 01/18/2024 15:30:09 OBGyn Episode No OBEpisode recorded.
--- OUTSIDE RECORDS SUMMARY | 2025-03-01 13:45 | XMS_ITS | Encounter Summary ---
Author Organization [facility] Address [address] [place] [address] Phone Care Team Providers Care Privacy Specialist Name Role Phone Unavailable Primary Care Provider Unavailabl e Reason for Visit * Reason Comments Med Refill Encounter Details Date Type Department Care Team (Late st Contact Info) Description 09/12/2022 Refill [facility] [address] [place] [address] Ronny Taylor MD Social History Tobacco Use Types Packs/Day Years Used Date Smoking Tobacco: Every Day Cigarettes Alcohol Use Standard Drinks/Week Comments No 0 (1 standard drink = 0.6 oz pur e alcohol) Comments Unknown Sex and Gender Information Value Date Recorded Sex Assigned at Not on file Legal Sex Female 4:58 PM EST Gender Identity Not on file Sexual Orientation Not on file documented as of this encounter Plan of Treatment Not on file documented as of this encounter Visit Diagnoses Not on filedocumented in this encounter
[2025-03-01 14:08] LABS: MANUAL DIFF FLAG NO
[2025-03-01 14:14] LABS: Hematocrit 33.7 % (37.0-47.0); Hemoglobin 11.4 g/dl (12.0-16.0); Imm Gran Abs Auto 0.03 X10*3/uL (0.00-0.03); Imm Gran Pct Auto 0.4 % (0.0-0.4); Lymphocytes Absolute Auto 1.6 X10*3/uL (1.2-4.9); Mean Corpuscular HGB Conc 33.8 g/dl (31.0-35.0); Mean Corpuscular Hemoglobin 31.2 pg (27.0-33.0); Mean Corpuscular Volume 92.3 fL (80.0-98.0); NRBC Abs Auto 0.000 X10*3/uL (0.0-0.012); NRBC Pct Auto 0.0 /100WBC (0.0-0.2); Platelet Count 305 X10*3/uL (160-400); Red Blood Count 3.65 X10*6/uL (4.20-5.50); White Blood Count 8.5 X10*3/uL (4.8-10.8)
[2025-03-01 14:34] LABS: Alanine Aminotransferase 25 U/L (0-31); Albumin Level 4.0 g/dL (3.5-5.0); Alkaline Phosphatase 96 U/L (39-117); Anion Gap 17 (12-20); Aspartate Amino Transferase 30 U/L (5-31); Blood Urea Nitrogen 15 mg/dL (9-16); Calcium 9.5 mg/dL (8.4-10.2); Carbon Dioxide 22 mmol/L (22-29); Chloride 108 mmol/L (96-108); Creatinine Clr Calc Pharmacy 52.7; Estimated Glomerular Filt Rate > 60; Lipase 12 U/L (8-78); Magnesium 1.5 mg/dL (1.6-2.6); Potassium 4.4 mmol/L (3.3-5.1); Sodium 143 mmol/L (135-145); Total Protein 6.9 g/dL (6.5-8.0)
[2025-03-01 17:00] LABS: CDiff Gene PCR NEGATIVE (Negative)
[2025-03-01 17:30] LABS: Appearance Urine Clear; Glucose Urine UA Negative (Negative); PH 5.5 (5.0-9.0); Specific Gravity - Urine 1.015 (1.005-1.025); UMIC TRIGGER UACC YES
[2025-03-01 19:00] VITALS: BP 122/44; PULSE 59; RESP 16; TEMP 36.7; O2SAT 96
[2025-03-01 19:08] VITALS: BP 122/44; PULSE 59; RESP 16; TEMP 36.7; O2SAT 96
[2025-03-02 09:21] LABS: E. coli EAEC Not Detected (Not Detect.); E. coli EPEC Not Detected (Not Detect.); E. coli ETEC Not Detected (Not Detect.); E. coli STEC Not Detected (Not Detect.); Shigella sp./EIEC Not Detected (Not Detect.)
== END 2025-03-01 19:15 | disposition home or self-care (01) ==
PROVIDERS: Physician Assistant Medical; Emergency Provider Emergency Medicine; PCP General Practice
DX: R19.7 Diarrhea, unspecified (principal); R10.9 Unspecified abdominal pain; Z03.818 Encounter for observation for suspected exposure to other biological agents ruled out; E11.22 Type 2 diabetes mellitus with diabetic chronic kidney disease; I13.0 Hypertensive heart and chronic kidney disease with heart failure and stage 1 through stage 4 chronic kidney disease, or unspecified chronic kidney disease; N18.9 Chronic kidney disease, unspecified; I50.9 Heart failure, unspecified; E78.5 Hyperlipidemia, unspecified; J45.909 Unspecified asthma, uncomplicated; Z87.891 Personal history of nicotine dependence; Z79.4 Long term (current) use of insulin; Z79.84 Long term (current) use of oral hypoglycemic drugs
CPT/HCPCS: 36415; 51701; 80053; 81001; 83690; 83735; 85025; 87493; 87507; 99283; 99285

== ENCOUNTER 2025-03-06 16:39 | Inpatient (IN) | payer OTHER, SELFPAY ==
[2025-03-06] VITALS (9 sets, daily range): BP systolic 71–145; BP diastolic 26–60; PULSE 50–76; RESP 13–18; TEMP 34.9–36.2; O2SAT 96–100; BMI 28.4
--- NOTE | 2025-03-06 | ECG_ITS ---
Test Reason : AMS Blood Pressure : */* mmHG Vent. Rate : 62 BPM Atrial Rate : * BPM P-R Int : * ms QRS Dur : 76 ms QT Int : 454 ms P-R-T Axes : * -30 -45 degrees QTcB Int : 460 ms Normal sinus rhythm Left axis deviation Septal infarct (cited on or before 10-Dec-2023) Abnormal ECG When compared with ECG of 10-Dec-2023 14:45, Inverted T waves have replaced nonspecific T wave abnormality in Inferior leads Nonspecific T wave abnormality, worse in Anterolateral leads Referred By: Savage Townsend Electronically Signed By: JADE RUSSO MD
--- NOTE | ~2025-03-06 | XR_ITS ---
CLINICAL HISTORY: ams Single view of the chest. Comparison 08/16/2023. Findings: Heart size isr upper limits of normal. There is no consolidation. No pleural effusions are seen. Impression: No consolidation. This document has been electronically signed by: Chavez Cleary MD on 03/06/2025 18:06:12
[2025-03-06 17:26] LABS: Glucose, Whole Blood 145 mg/dL (60-115)
[2025-03-06 17:26] LABS: Glucose, Whole Blood 143 mg/dL (60-115)
--- NOTE | 2025-03-06 17:48 | ED.GENADULT ---
HPI - General Adult General Chief complaint: Recheck/Abnormal Lab/Rx Stated complaint: hypotensive, poc now 110 Time Seen by Provider: 03/06/25 16:42 Source: family Mode of arrival: EMS Limitations: altered mental status History of Present Illness ED Provider: HPI narrative: Patient is 69 years old with history of type 2 diabetes 1 in insulin hypertension hyperlipidemia ischemic cardiomyopathy CVA with left-sided weakness was given 28 units of Lantus insulin at 20:00 by ENVIRONMENTAL PROJECTS ADVISOR but patient did not eat any support after that but had snacks during the nighttime patient spoke to her at 09:00 at that time patient was alert awake talking on the phone when PC came back at 16:00 patient found her on the bed minimal responsive EMS came blood sugar was 39 was given 1 mg of IM glucagon and 50 mL of D10 patient in conscious level improved started opening arise but is still lethargic blood sugar on arrival was 145 Related Data Home Medications ?Medication ?Instructions ?Recorded ?Confirmed amlodipine 10 mg tablet 10 mg PO DAILY 12/08/20 12/11/23 bupropion HCl 150 mg tablet,12 hr 150 mg PO BID 12/08/20 12/11/23 sustained-release carvedilol 25 mg tablet 25 mg PO BID 12/08/20 12/11/23 folic acid 1 mg tablet 1 mg PO DAILY 12/08/20 12/11/23 furosemide 20 mg tablet 20 mg PO DAILY 12/08/20 12/11/23 gabapentin 300 mg capsule 300 mg PO BEDTIME 12/08/20 12/11/23 metformin 1,000 mg tablet 1,000 mg PO BID 12/08/20 12/11/23 ascorbic acid (vitamin C) 500 mg 500 mg PO DAILY 06/16/21 12/11/23 tablet (Vitamin C) cyanocobalamin (vitamin B-12) 1,000 mcg PO DAILY 06/16/21 12/11/23 1,000 mcg tablet (Vitamin B-12) docusate sodium 100 mg capsule 100 mg PO DAILY PRN Constipation 06/16/21 12/11/23 (Colace) ferrous sulfate 325 mg (65 mg 325 mg PO DAILY 06/16/21 12/11/23 iron) tablet insulin glargine 100 unit/mL (3 28 unit subcut QPM 06/16/21 12/11/23 mL) subcutaneous pen (Lantus Solostar U-100 Insulin) omeprazole 20 mg capsule,delayed 20 mg PO DAILY 06/16/21 12/11/23 release cholecalciferol (vitamin D3) 50 50 mcg PO DAILY 08/16/23 12/11/23 mcg (2,000 unit) capsule (Vitamin D3) escitalopram oxalate 20 mg tablet 20 mg PO DAILY 08/16/23 12/11/23 Previous Rx's ?Medication ?Instructions ?Recorded cefuroxime axetil 250 mg tablet 250 mg PO BID 6 days #12 tabs 12/12/23 Allergies Allergy/AdvReac Type Severity Reaction Status Date / Time No Known Drug Allergies Allergy Unknown U Verified 03/06/25 16:45 Review of Systems Review of Systems: Yes all other systems are reviewed and are negative [facility] Past Medical History Medical History Anemia Vitamin B 12 deficiency Neuropathy CHF (congestive heart failure) Elevated cholesterol Depression CVA (cerebral vascular accident) CKD (chronic kidney disease) Asthma Type 2 diabetes mellitus with unspecified complications Essential hypertension Atherosclerotic cardiovascular disease Ischemic cardiomyopathy Surgical History History of bilateral cataract extraction Hx of cardiac catheterization Social History Social History Household Members: Family Household Members Other:: nephew Housing: Apartment Are you a primary landcare facilitator to a significant other at home: No Do you presently have visiting nurse or other home services: Yes ([facility]) Alcohol intake: former Patient Tobacco Use Status: Former Tobacco user Tobacco use type: Cigarette Smoked in Last 30 Days: No Advance Directives: Yes Advance Directives on File: Yes Advance Directives Date on File: 08/16/23 Do you have a plan to hurt others: No Plan service: No Physical Exam ED Vital Signs: Vital Signs - 24 hr 03/06/25 16:41 03/06/25 17:07 03/06/25 17:39 Temperature 94.9 F L 95.2 F L 95.9 F L Pulse Rate 59 59 55 Respiratory Rate 17 17 13 Blood Pressure 127/44 L 104/26 L 78/29 L Pulse Oximetry 97 96 97 Oxygen Delivery Method Room Air Room Air Room Air 03/06/25 17:44 07/31/25 17:57 03/06/25 18:00 Temperature Pulse Rate 66 67 Respiratory Rate Blood Pressure 84/34 L 92/29 L 145/57 H Pulse Oximetry Oxygen Delivery Method 03/06/25 19:43 03/06/25 20:30 03/06/25 21:17 Temperature 96.4 F L 97.2 F Pulse Rate 76 65 Respiratory Rate 18 15 Blood Pressure 132/50 L 110/52 L 122/60 Pulse Oximetry 98 100 Oxygen Delivery Method Room Air Room Air BMI result Body Mass Index 28.4 Appearance: Lethargic but arousable No acute distress. Eyes: PERRLA, No Nystagmus ENT: Pharynx normal. Oral Mucosa moist Neck: Normal inspection. Neck supple. CVS: Normal heart rate and rhythm. Pulses normal. Respiratory: No respiratory distress. Equal air entry bilateral, no wheezing/rales/rhonchi Abdomen: Soft and nontender. Bowel sounds are present, no mass palpable, no CVA tenderness Skin: Skin warm and dry. Normal skin color. Normal skin turgor. Extremities: No lower extremity edema. No calf tenderness Neuro: Oriented X 3. Residual left-sided weakness. No sensory deficit.No cerebellar signs , cranial nerves II-XII intact Medications Administered Generic Name Dose Route Start Last Admin Trade Name Freq PRN Reason Stop Dose Admin Dextrose 25 gm 03/06/25 23:02 03/07/25 00:56 Dextrose 50 % 25 Gm/50 Ml Syringe IVPUSH 25 gm Q15M PRN Administration per Hypoglycemia Standing Ord. Protocol Dextrose/Sodium Chloride 1,000 mls @ 50 mls/hr 03/07/25 01:15 03/07/25 01:34 D51/2ns IVCONT 50 mls/hr .Q20H STEPHANIE Administration Sodium Chloride 3 ml 03/07/25 00:00 03/07/25 00:15 0.9 % Sodium Chloride Flush 3 Ml Syringe IVFLUSH Not Given QSHIFT STEPHANIE Discontinued Medications Generic Name Dose Route Start Last Admin Trade Name Freq PRN Reason Stop Dose Admin Ceftriaxone Sodium 2 gm 03/06/25 17:06 03/06/25 17:33 Ceftriaxone Sodium 2 Gm Vial IVPUSH 03/06/25 17:07 2 gm ONCE ONE Administration Sodium Chloride 1,000 mls @ 999 mls/hr 03/06/25 17:04 03/06/25 19:40 Ns IV 03/06/25 18:04 Infused .Q1H1M ONE Infusion Sodium Chloride 1,000 mls @ 999 mls/hr 03/06/25 17:45 03/06/25 19:40 Ns IV 03/06/25 18:45 Infused .Q1H1M ONE Infusion Magnesium Sulfate 2 gm in 50 mls @ 25 mls/hr 03/06/25 18:15 03/06/25 20:23 Magnesium Sulfate/H2o IV 03/06/25 20:14 Infused ONCE ONE Infusion Lactated Ringer's 1,000 mls @ 50 mls/hr 03/06/25 23:15 03/07/25 01:40 Lr IVCONT 0 mls/hr .Q20H STEPHANIE Infusion Medical Decision Making Medical Decision Making [facility] Narrative: With diabetic with hyperglycemia after using insulin and not eating well during stay patient sensorium improved UC 145 at 17:45 patient back to normal per ENVIRONMENTAL PROJECTS ADVISOR communicating well patient transient hypertension likely from prolonged hypoglycemia blood culture lactic acid were done patient did have a history of Gram-negative bacteremia in 08/2023 , 2 g of Rocephin was given pending the labs daughter confirmed with patient patient did not take any overdose on any medication Differential Diagnosis Differential Diagnoses: The differential diagnosis associated with the presentation includes Medication overdose/failure to thrive/metabolic/bacteremia Admission/Observation Consideration of admission/observation: Escalation of care including admission/observation considered Consult Healthcare Provider Management of the patient was discussed with: Hospitalist Lab Data [facility] Lab Attestation statement: I reviewed the patient's lab results. 03/06/25 17:32 03/06/25 17:32 Labs: Lab Results 03/06/25 03/06/25 03/06/25 Range/Units 16:46 17:23 17:32 WBC 15.7 H (4.8-10.8) X10*3/uL RBC 3.90 L (4.20-5.50) X10*6/uL Hgb 12.0 (12.0-16.0) g/dl Hct 34.6 L (37.0-47.0) % MCV 88.7 (80.0-98.0) fL MCH 30.8 (27.0-33.0) pg MCHC 34.7 (31.0-35.0) g/dl RDW 12.4 (11.0-16.0) % Plt Count 296 (160-400) X10*3/uL MPV 9.9 (9.4-12.3) fL Immature Gran % (Auto) 0.4 (0.0-0.4) % Neut % (Auto) 92.1 H (45-73) % Lymph % (Auto) 5.1 L (20-40) % [place] % (Auto) 2.0 (2-11) % Eos % (Auto) 0.3 (0-4) % Baso % (Auto) 0.1 (0-2) % Lymph # (Auto) 0.8 L (1.2-4.9) X10*3/uL [place] # (Auto) 0.3 (0.1-1.2) X10*3/uL Eos # (Auto) 0.1 (0.0-0.4) X10*3/uL Baso # (Auto) 0.0 (0.0-0.2) X10*3/uL Abs Immat Gran (auto) 0.07 H (0.00-0.03) X10*3/uL Absolute Neuts (auto) 14.4 H (2.0-8.3) x10*3/uL Absolute Nucleated RBC 0.000 (0.0-0.012) X10*3/uL Nucleated RBC % (auto) 0.0 (0.0-0.2) /100WBC Smear Tech's Comments VERIFIED Sodium 142 (135-145) mmol/L Potassium 4.5 (3.3-5.1) mmol/L Chloride 104 (96-108) mmol/L Carbon Dioxide 23 (22-29) mmol/L Anion Gap 20 (12-20) BUN 29 H (9-16) mg/dL Creatinine 0.93 (0.5-1.4) mg/dL Estim Creat Clear Calc 53.9 Estimated GFR > 60 POC Glucose 145 H 143 H (60-115) mg/dL Random Glucose 156 H (60-115) mg/dL Lactic Acid 2.7 H* (0.5-2.0) mmol/L Lactic Acid F/U @ 2Hr (0.5-2.0) mmol/L Calcium 9.3 (8.4-10.2) mg/dL Magnesium 1.4 L* (1.6-2.6) mg/dL Total Bilirubin 0.4 (0.0-1.0) mg/dL AST 31 (5-31) U/L ALT 31 (0-31) U/L Alkaline Phosphatase 107 (39-117) U/L Troponin I High Sens < 2.7 (<3.5-17.0) ng/L B-Natriuretic Peptide 39 (<100) pg/mL Total Protein 7.4 (6.5-8.0) g/dL Albumin 4.3 (3.5-5.0) g/dL Urine Color Urine Appearance Urine pH (5.0-9.0) Ur Specific [place] (1.005-1.025) Urine Protein (Neg-Trace) mg/dL Urine Glucose (UA) (Negative) mg/dL Urine Ketones (Negative) mg/dL Urine Blood (Negative) Urine Nitrite (Negative) Ur Leukocyte Esterase (Negative) Urine RBC (0-2) /HPF Urine WBC (0-5) /HPF Ur Squamous Epith Cells (0-2) /HPF Urine Bacteria (None Seen) Hyaline Casts (0-2) /LPF 03/06/25 03/06/25 03/06/25 Range/Units 18:04 19:58 21:01 WBC (4.8-10.8) X10*3/uL RBC (4.20-5.50) X10*6/uL Hgb (12.0-16.0) g/dl Hct (37.0-47.0) % MCV (80.0-98.0) fL MCH (27.0-33.0) pg MCHC (31.0-35.0) g/dl RDW (11.0-16.0) % Plt Count (160-400) X10*3/uL MPV (9.4-12.3) fL Immature Gran % (Auto) (0.0-0.4) % Neut % (Auto) (45-73) % Lymph % (Auto) (20-40) % [place] % (Auto) (2-11) % Eos % (Auto) (0-4) % Baso % (Auto) (0-2) % Lymph # (Auto) (1.2-4.9) X10*3/uL [place] # (Auto) (0.1-1.2) X10*3/uL Eos # (Auto) (0.0-0.4) X10*3/uL Baso # (Auto) (0.0-0.2) X10*3/uL Abs Immat Gran (auto) (0.00-0.03) X10*3/uL Absolute Neuts (auto) (2.0-8.3) x10*3/uL Absolute Nucleated RBC (0.0-0.012) X10*3/uL Nucleated RBC % (auto) (0.0-0.2) /100WBC Smear Tech's Comments Sodium (135-145) mmol/L Potassium (3.3-5.1) mmol/L Chloride (96-108) mmol/L Carbon Dioxide (22-29) mmol/L Anion Gap (12-20) BUN (9-16) mg/dL Creatinine (0.5-1.4) mg/dL Estim Creat Clear Calc Estimated GFR POC Glucose 116 H (60-115) mg/dL Random Glucose (60-115) mg/dL Lactic Acid (0.5-2.0) mmol/L Lactic Acid F/U @ 2Hr 3.5 H* (0.5-2.0) mmol/L Calcium (8.4-10.2) mg/dL Magnesium (1.6-2.6) mg/dL Total Bilirubin (0.0-1.0) mg/dL AST (5-31) U/L ALT (0-31) U/L Alkaline Phosphatase (39-117) U/L Troponin I High Sens (<3.5-17.0) ng/L B-Natriuretic Peptide (<100) pg/mL Total Protein (6.5-8.0) g/dL Albumin (3.5-5.0) g/dL Urine Color Yellow Urine Appearance Clear Urine pH 5.5 (5.0-9.0) Ur Specific [place] 1.015 (1.005-1.025) Urine Protein Negative (Neg-Trace) mg/dL Urine Glucose (UA) Negative (Negative) mg/dL Urine Ketones Negative (Negative) mg/dL Urine Blood Negative (Negative) Urine Nitrite Positive H (Negative) Ur Leukocyte Esterase Trace H (Negative) Urine RBC 0-2 (0-2) /HPF Urine WBC 0-5 (0-5) /HPF Ur Squamous Epith Cells 0-2 (0-2) /HPF Urine Bacteria Trace (None Seen) Hyaline Casts 0-2 (0-2) /LPF 03/06/25 03/06/25 Range/Units 21:05 21:54 WBC (4.8-10.8) X10*3/uL RBC (4.20-5.50) X10*6/uL Hgb (12.0-16.0) g/dl Hct (37.0-47.0) % MCV (80.0-98.0) fL MCH (27.0-33.0) pg MCHC (31.0-35.0) g/dl RDW (11.0-16.0) % Plt Count (160-400) X10*3/uL MPV (9.4-12.3) fL Immature Gran % (Auto) (0.0-0.4) % Neut % (Auto) (45-73) % Lymph % (Auto) (20-40) % [place] % (Auto) (2-11) % Eos % (Auto) (0-4) % Baso % (Auto) (0-2) % Lymph # (Auto) (1.2-4.9) X10*3/uL [place] # (Auto) (0.1-1.2) X10*3/uL Eos # (Auto) (0.0-0.4) X10*3/uL Baso # (Auto) (0.0-0.2) X10*3/uL Abs Immat Gran (auto) (0.00-0.03) X10*3/uL Absolute Neuts (auto) (2.0-8.3) x10*3/uL Absolute Nucleated RBC (0.0-0.012) X10*3/uL Nucleated RBC % (auto) (0.0-0.2) /100WBC Smear Tech's Comments Sodium (135-145) mmol/L Potassium (3.3-5.1) mmol/L Chloride (96-108) mmol/L Carbon Dioxide (22-29) mmol/L Anion Gap (12-20) BUN (9-16) mg/dL Creatinine (0.5-1.4) mg/dL Estim Creat Clear Calc Estimated GFR POC Glucose 81 81 (60-115) mg/dL Random Glucose (60-115) mg/dL Lactic Acid (0.5-2.0) mmol/L Lactic Acid F/U @ 2Hr (0.5-2.0) mmol/L Calcium (8.4-10.2) mg/dL Magnesium (1.6-2.6) mg/dL Total Bilirubin (0.0-1.0) mg/dL AST (5-31) U/L ALT (0-31) U/L Alkaline Phosphatase (39-117) U/L Troponin I High Sens (<3.5-17.0) ng/L B-Natriuretic Peptide (<100) pg/mL Total Protein (6.5-8.0) g/dL Albumin (3.5-5.0) g/dL Urine Color Urine Appearance Urine pH (5.0-9.0) Ur Specific [place] (1.005-1.025) Urine Protein (Neg-Trace) mg/dL Urine Glucose (UA) (Negative) mg/dL Urine Ketones (Negative) mg/dL Urine Blood (Negative) Urine Nitrite (Negative) Ur Leukocyte Esterase (Negative) Urine RBC (0-2) /HPF Urine WBC (0-5) /HPF Ur Squamous Epith Cells (0-2) /HPF Urine Bacteria (None Seen) Hyaline Casts (0-2) /LPF Independent Interpretation I performed an independent interpretation of an: EKG and Plain X-Ray Interpretation: Sinus rhythm left axis deviation poor progression of R-wave nonspecific STT wave changes no acute ischemia Radiology Impression Discussion of test interpretation with radiology: I have reviewed the radiologist's reading. Critical Care Time Critical Care Time Critical Care Time: Yes Total Critical Care Time: 55 Attestation: Time is exclusive of separately billable procedures. Time includes: direct patient care, patient reassessment, coordination of patient care, interpretation of data (laboratory data, pulse oximetry, arterial blood gases and chest xrays), review of patient's medical records, medical consultation and documentation of patient care. Procedures excluded from critical care time: central intravenous line placement and electrocardiography. Discharge Plan Discharge Clinical Impression: Acute UTI, Hypomagnesemia, Diabetic hypoglycemia, Acidosis, lactic Patient Disposition: Admitted As Inpatient
[2025-03-06 17:49] LABS: Hematocrit 34.6 % (37.0-47.0); Hemoglobin 12.0 g/dl (12.0-16.0); Imm Gran Abs Auto 0.07 X10*3/uL (0.00-0.03); Imm Gran Pct Auto 0.4 % (0.0-0.4); Lymphocytes Absolute Auto 0.8 X10*3/uL (1.2-4.9); MANUAL DIFF FLAG SCAN; Mean Corpuscular HGB Conc 34.7 g/dl (31.0-35.0); Mean Corpuscular Hemoglobin 30.8 pg (27.0-33.0); Mean Corpuscular Volume 88.7 fL (80.0-98.0); NRBC Abs Auto 0.000 X10*3/uL (0.0-0.012); NRBC Pct Auto 0.0 /100WBC (0.0-0.2); Platelet Count 296 X10*3/uL (160-400); Red Blood Count 3.90 X10*6/uL (4.20-5.50); SCAN SMEAR FLAG 1; White Blood Count 15.7 X10*3/uL (4.8-10.8)
[2025-03-06 18:04] LABS: Alanine Aminotransferase 31 U/L (0-31); Albumin Level 4.3 g/dL (3.5-5.0); Alkaline Phosphatase 107 U/L (39-117); Anion Gap 20 (12-20); Aspartate Amino Transferase 31 U/L (5-31); Blood Urea Nitrogen 29 mg/dL (9-16); Calcium 9.3 mg/dL (8.4-10.2); Carbon Dioxide 23 mmol/L (22-29); Chloride 104 mmol/L (96-108); Creatinine Clr Calc Pharmacy 53.9; Estimated Glomerular Filt Rate > 60; Magnesium 1.4 mg/dL (1.6-2.6); Potassium 4.5 mmol/L (3.3-5.1); Sodium 142 mmol/L (135-145); Total Protein 7.4 g/dL (6.5-8.0)
--- OUTSIDE RECORDS SUMMARY | 2025-03-06 18:05 | XMS_ITS | Encounter Summary ---
Author Organization [facility] Address [address] [place] [address] Phone Care Team Providers Care Intel Analyst Name Role Phone Unavailable Primary Care Provider Unavailabl e Reason for Visit * Reason Comments Med Refill Encounter Details Date Type Department Care Team (Late st Contact Info) Description 09/12/2022 Refill [facility] [address] [place] [address] Ronny Taylor MD Social History [...]
[2025-03-06 18:07] LABS: Troponin-I High Sensitivity < 2.7 ng/L (<3.5-17.0)
[2025-03-06 18:12] LABS: Glucose, Whole Blood 116 mg/dL (60-115)
[2025-03-06] MEDS: Magnesium Sulfate/H2O 2 GM/50 ML PIGGYBACK IV (18:23)
--- NOTE | 2025-03-06 18:27 | PC.NURSE ---
Pt BIBA from home, noted to be minimally responsive and hypoglycemic with EMS. Pt POC on arrival in 140's and pt responding to verbal stimuli. Pt has hx cva with left sided deficits. #22 placed to L FA and u/s guided IV placed to RUE. Labs collected and sent. Medications administered per OCT. Pt also noted to be hypotensive, MD aware and new orders in place.
[2025-03-06 18:46] LABS: B Type Natriuretic Peptide 39 pg/mL (<100)
--- NOTE | 2025-03-06 19:20 | PC.NURSE ---
assumed care of pt at this time. ivf infusing slow, flushed iv lines and repositioned arm for ivf to infuse faster. mag also infusing at this time. pt denies any pain/complaints at this time. lights off per request and call cifuentes placed within reach.
[2025-03-06 19:40] LABS: Reflex Lactate? Lactic Acid Added
[2025-03-06 20:33] LABS: ~Lactic Acid-LAB USE ONLY 3.5 mmol/L (0.5-2.0)
[2025-03-06 21:08] LABS: Appearance Urine Clear; Glucose Urine UA Negative (Negative); PH 5.5 (5.0-9.0); Specific Gravity - Urine 1.015 (1.005-1.025); UMIC TRIGGER UACC YES
[2025-03-06 21:09] LABS: Glucose, Whole Blood 81 mg/dL (60-115)
[2025-03-06 21:13] LABS: UACC Culture Trigger YES
--- NOTE | 2025-03-06 21:17 | PC.NURSE ---
MD aware of POC. gave patient juice. axox3 speaking full clear sentences. vss.
[2025-03-06 21:58] LABS: Glucose, Whole Blood 81 mg/dL (60-115)
--- NOTE | 2025-03-06 22:00 | PC.NURSE ---
MD aware of POC. orange juice given.
[2025-03-06 22:02] LABS: Reflex Lactate? 2 Y
[2025-03-06 22:56] LABS: ~Lactic Acid-LAB USE ONLY 3.9 mmol/L (0.5-2.0)
--- NOTE | 2025-03-06 22:56 | PC.NURSE ---
per MD to stop lactic draws at this time.
[2025-03-06 22:59] LABS: Cancel Lactic Acid Canceled
--- NOTE | 2025-03-06 23:05 | PM.IMHP ---
History of Present Illness Date of Service: 03/06/25 Attending physician on admission: Dayne Cary Chief Complaint: AMS Patient is a 69-year-old South Korean-speaking female with a past medical history significant for type 2 diabetes on insulin, hypertension, hyperlipidemia, ischemic cardiomyopathy, history CVA with left-sided weakness, HFrEF (EF 45-50% 02/2023), who presented to the ED due to altered mental status. The patient was found minimally responsive by her RESOURCE CONSERVATIONIST around 16:00 and EMS was called. LKWT was 9:00am. The pt reports that she was eating and drinking normally today and was unaware why she is in the ED. Patient reports that she usually takes her insulin at bedtime, she received her insulin last night An IO was placed and the patient was given 1 mg IM glucagon and 50 mL of D10, blood sugar was 39, improved to 145 with above treatment. She denies any headache, change in vision, chest pain, shortness of breath, nausea, vomiting or abdominal pain. She does note foul smelling urine but denies any frequency, urgency or dysuria. Review of Systems Constitutional: Constitutional: Denies body ache(s), Denies chills, Denies fatigue, Denies fever(s) and Denies headache(s) Eyes: Eyes: Denies change in vision ENT: Denies headache(s), Denies nasal congestion and Denies sore throat Cardiovascular: Cardiovascular: Denies chest pain, Denies rapid heart rate, Denies leg edema, Denies lightheadedness and Denies dyspnea Respiratory: Respiratory: Denies chest congestion, Denies cough, Denies dyspnea and Denies wheezing Gastrointestinal: Gastrointestinal: Denies abdominal pain, Denies diarrhea, Denies nausea and Denies vomiting Genitourinary: Genitourinary: Reports as per HPI Musculoskeletal: Musculoskeletal: Denies back pain and Denies myalgias Integumentary/Breasts: Skin/Breast: Denies rash Neurologic: Denies confusion and Denies headache(s) Psychiatric: Psychiatric: Denies confusion Endocrine: Endocrine: Denies fatigue Hematologic/Lymphatic: Hematologic/Lymphatic: Denies easy bleeding and Denies easy bruising Allergic/Immunologic: Allergic/Immunologic: Denies wheezing [facility] Medical History Anemia Vitamin B 12 deficiency Neuropathy CHF (congestive heart failure) Elevated cholesterol Depression CVA (cerebral vascular accident) CKD (chronic kidney disease) Asthma Type 2 diabetes mellitus with unspecified complications Essential hypertension Atherosclerotic cardiovascular disease Ischemic cardiomyopathy Functional capacity: independent ambulation Surgical History History of bilateral cataract extraction Hx of cardiac catheterization Social History Household Members: Family Household Members Other:: nephew Housing: Apartment Are you a primary care partner to a significant other at home: No Do you presently have visiting nurse or other home services: Yes (tarik SINGH) Alcohol intake: former Patient Tobacco Use Status: Former Tobacco user Tobacco use type: Cigarette Smoked in Last 30 Days: No Advance Directives: Yes Advance Directives on File: Yes Advance Directives Date on File: 08/16/23 Do you have a plan to hurt others: No Plan service: No Narrative: No smoking, alcohol or drug use Meds Allergies Allergy/AdvReac Type Severity Reaction Status Date / Time No Known Drug Allergies Allergy Unknown U Verified 03/06/25 16:45 Active Medications: Current Medications Lactated Ringer's (Lr) 1,000 mls @ 50 mls/hr IVCONT .Q20H [place]SEPHANIE Home Medications ?Medication ?Instructions ?Recorded ?Confirmed ?Last Taken ?Type amlodipine 10 mg tablet 10 mg PO DAILY 12/08/20 12/11/23 Unknown History bupropion HCl 150 mg tablet,12 hr 150 mg PO BID 12/08/20 12/11/23 Unknown History sustained-release carvedilol 25 mg tablet 25 mg PO BID 12/08/20 12/11/23 Unknown History folic acid 1 mg tablet 1 mg PO DAILY 12/08/20 12/11/23 Unknown History furosemide 20 mg tablet 20 mg PO DAILY 12/08/20 12/11/23 Unknown History gabapentin 300 mg capsule 300 mg PO BEDTIME 12/08/20 12/11/23 Unknown History metformin 1,000 mg tablet 1,000 mg PO BID 12/08/20 12/11/23 Unknown History ascorbic acid (vitamin C) 500 mg 500 mg PO DAILY 06/16/21 12/11/23 Unknown History tablet (Vitamin C) cyanocobalamin (vitamin B-12) 1,000 mcg PO DAILY 06/16/21 12/11/23 Unknown History 1,000 mcg tablet (Vitamin B-12) docusate sodium 100 mg capsule 100 mg PO DAILY PRN Constipation 06/16/21 12/11/23 Unknown History (Colace) ferrous sulfate 325 mg (65 mg 325 mg PO DAILY 06/16/21 12/11/23 Unknown History iron) tablet insulin glargine 100 unit/mL (3 28 unit subcut QPM 06/16/21 12/11/23 Unknown History mL) subcutaneous pen (Lantus Solostar U-100 Insulin) omeprazole 20 mg capsule,delayed 20 mg PO DAILY 06/16/21 12/11/23 Unknown History release cholecalciferol (vitamin D3) 50 50 mcg PO DAILY 08/16/23 12/11/23 Unknown History mcg (2,000 unit) capsule (Vitamin D3) escitalopram oxalate 20 mg tablet 20 mg PO DAILY 08/16/23 12/11/23 Unknown History Physical Exam Vital Signs and Narrative: Vital Signs: Last Vital Signs Temp 97.2 F 03/06/25 21:17 Pulse 65 03/06/25 21:17 Resp 15 03/06/25 21:17 BP 122/60 03/06/25 21:17 Pulse Ox 100 03/06/25 21:17 O2 Del Method Room Air 03/06/25 21:17 BMI result Body Mass Index 28.4 General: AOx3, no acute distress Resp: CTA bilaterally CVS: S1, S2, RRR GI: +BS, NT, no distention Skin: Warm, dry Neuro: Cranial nerves II-XII grossly intact bilaterally. Motor grossly intact bilaterally Extremities: No LE edema Psych: Appropriate affect Const: General: No confusion Orientation/consciousness: No confusion Neuro: General: No confusion Results Labs 03/06/25 17:32 03/06/25 17:32 Labs: Laboratory Results - last 24 hr 03/06/25 03/06/25 03/06/25 16:46 17:23 17:32 MCV 88.7 MCH 30.8 MCHC 34.7 RDW 12.4 Plt Count 296 MPV 9.9 Immature Gran % (Auto) 0.4 Neut % (Auto) 92.1 H Lymph % (Auto) 5.1 L [place] % (Auto) 2.0 Eos % (Auto) 0.3 Baso % (Auto) 0.1 Lymph # (Auto) 0.8 L [place] # (Auto) 0.3 Eos # (Auto) 0.1 Baso # (Auto) 0.0 Abs Immat Gran (auto) 0.07 H Absolute Neuts (auto) 14.4 H Absolute Nucleated RBC 0.000 Nucleated RBC % (auto) 0.0 Smear Tech's Comments VERIFIED Anion Gap 20 Estim Creat Clear Calc 53.9 Estimated GFR > 60 POC Glucose 145 H 143 H Random Glucose 156 H Lactic Acid 2.7 H* Lactic Acid F/U @ 2Hr Lactic Acid F/U @ 4Hr Calcium 9.3 Magnesium 1.4 L* Total Bilirubin 0.4 AST 31 ALT 31 Alkaline Phosphatase 107 B-Natriuretic Peptide 39 Total Protein 7.4 Albumin 4.3 Urine Color Urine Appearance Urine pH Ur Specific [place] Urine Protein Urine Glucose (UA) Urine Ketones Urine Blood Urine Nitrite Ur Leukocyte Esterase Urine RBC Urine WBC Ur Squamous Epith Cells Urine Bacteria Hyaline Casts 03/06/25 03/06/25 03/06/25 18:04 19:58 21:01 MCV MCH MCHC RDW Plt Count MPV Immature Gran % (Auto) Neut % (Auto) Lymph % (Auto) [place] % (Auto) Eos % (Auto) Baso % (Auto) Lymph # (Auto) [place] # (Auto) Eos # (Auto) Baso # (Auto) Abs Immat Gran (auto) Absolute Neuts (auto) Absolute Nucleated RBC Nucleated RBC % (auto) Smear Tech's Comments Anion Gap Estim Creat Clear Calc Estimated GFR POC Glucose 116 H Random Glucose Lactic Acid Lactic Acid F/U @ 2Hr 3.5 H* Lactic Acid F/U @ 4Hr Calcium Magnesium Total Bilirubin AST ALT Alkaline Phosphatase B-Natriuretic Peptide Total Protein Albumin Urine Color Yellow Urine Appearance Clear Urine pH 5.5 Ur Specific [place] 1.015 Urine Protein Negative Urine Glucose (UA) Negative Urine Ketones Negative Urine Blood Negative Urine Nitrite Positive H Ur Leukocyte Esterase Trace H Urine RBC 0-2 Urine WBC 0-5 Ur Squamous Epith Cells 0-2 Urine Bacteria Trace Hyaline Casts 0-2 03/06/25 03/06/25 03/06/25 21:05 21:54 22:34 MCV MCH MCHC RDW Plt Count MPV Immature Gran % (Auto) Neut % (Auto) Lymph % (Auto) [place] % (Auto) Eos % (Auto) Baso % (Auto) Lymph # (Auto) [place] # (Auto) Eos # (Auto) Baso # (Auto) Abs Immat Gran (auto) Absolute Neuts (auto) Absolute Nucleated RBC Nucleated RBC % (auto) Smear Tech's Comments Anion Gap Estim Creat Clear Calc Estimated GFR POC Glucose 81 81 Random Glucose Lactic Acid Lactic Acid F/U @ 2Hr Lactic Acid F/U @ 4Hr 3.9 H* Calcium Magnesium Total Bilirubin AST ALT Alkaline Phosphatase B-Natriuretic Peptide Total Protein Albumin Urine Color Urine Appearance Urine pH Ur Specific [place] Urine Protein Urine Glucose (UA) Urine Ketones Urine Blood Urine Nitrite Ur Leukocyte Esterase Urine RBC Urine WBC Ur Squamous Epith Cells Urine Bacteria Hyaline Casts Assessment and Plan (1) Acute metabolic encephalopathy due to hypoglycemia: Status: Acute (2) Severe sepsis: Status: Resolved (3) Acute UTI: Status: Acute (4) Acute lactic acidosis: Status: Acute (5) Hypomagnesemia: Status: Acute Plan Patient is a 69-year-old [place] Korean-speaking female with a past medical history significant for type 2 diabetes on insulin, hypertension, hyperlipidemia, ischemic cardiomyopathy, history CVA with left-sided weakness, HFrEF (EF 45-50% 02/2023), who presented to the ED due to altered mental status. Acute metabolic encephalopathy due to hypoglycemia, severe sepsis and acute UTI - encephalopathy resolved with glucose and D10 - WBC 15.7, hypothermic at 94.9 on arrival, lactic acid elevated (2.7, 3.5, 3.9), blood cultures x2 pending - hypotensive initially in ED, improved with 2 L IV fluids - UA +, culture pending - CXR negative - started on ceftriaxone in ED, continue - given 2 L IV fluids in ED, due to CHF we will continue LR 50 mL/HR - follow lactic until showing improvement - monitor CBC and BMP acute lactic acidosis -- severe sepsis - lactic 2.7, 3.5, now 3.9 - recieved 2L IVF in ED, now on LR 50ml/hr - fluid bolus avoided due to HFrEF Hypomagnesemia - magnesium 1.4 - given 2 g IV Mag in ED - recheck Mag in a.m. T2DM - hold PM lantus due to hypoglycemia, resume tomorrow pending med rec - sliding scale insulin - diabetic diet HTN - normotensive, resume when appropriate HLD - continue home meds chronic HFrEF (EF 45-50% 02/2023), no acute exacerbation - continue home meds med rec pending full code VTE prophy: lovenox Patient with severe sepsis secondary to acute UTI, complicated by acute metabolic encephalopathy secondary to hypoglycemia (resolved) requiring admission for at least 2 midnights stay for IV antibiotics and monitoring. Quality Stroke Does the patient have a stroke diagnosis?: No VTE Prior VTE?: No VTE Risk Level:: Medical - moderate - high VTE Device Contraindication: Treatment Not Indicated VTE Drug Contraindication: N/A - Med Ordered
[2025-03-07] MEDS: Lactated Ringers 1,000 ML 50 ML IVCONT (00:14)
[2025-03-07 00:56] LABS: Glucose, Whole Blood 23 mg/dL (60-115)
[2025-03-07 01:18] LABS: Glucose, Whole Blood 161 mg/dL (60-115)
[2025-03-07] MEDS: Dextrose 5 % and 0.45 % NaCl 1,000 ML 50 ML IVCONT (01:34)
[2025-03-07 01:40] LABS: Glucose, Whole Blood 130 mg/dL (60-115)
[2025-03-07 01:59] LABS: Glucose, Whole Blood 123 mg/dL (60-115)
[2025-03-07 02:16] LABS: Glucose, Whole Blood 114 mg/dL (60-115)
--- NOTE | 2025-03-07 02:33 | PC.NURSE ---
Pts POC around 0056 was 23 however she was asymptomatic. Stat D50 given per OCT prn order. POC improved once rechecked in 15 min. Admitting provider was made aware. LR discontinued; D5 45%NS currently infusing at 50mLs/hr.
[2025-03-07 02:38] VITALS: BP 137/52; PULSE 65; RESP 16; TEMP 37; O2SAT 95
[2025-03-07 03:35] VITALS: BMI 30.6
[2025-03-07 04:00] VITALS: BP 148/64; PULSE 67; RESP 16; TEMP 36.8; O2SAT 98
[2025-03-07 07:05] VITALS: BP 109/58; PULSE 71; RESP 16; TEMP 36.7; O2SAT 98
[2025-03-07] MEDS: 0.9 % Sodium Chloride Flush 3 ML SYRINGE IVFLUSH ×3 (07:16→20:08)
[2025-03-07] MEDS: Dextrose 5 % and Lactated Ring 1,000 ML 75 ML IVCONT (07:31)
[2025-03-07 07:40] LABS: Glucose, Whole Blood 180 mg/dL (60-115)
[2025-03-07 07:40] LABS: Glucose, Whole Blood 35 mg/dL (60-115)
[2025-03-07 08:52] LABS: MANUAL DIFF FLAG NO
[2025-03-07 08:54] LABS: Glucose, Whole Blood 170 mg/dL (60-115)
[2025-03-07 08:56] LABS: Hematocrit 34.1 % (37.0-47.0); Hemoglobin 11.6 g/dl (12.0-16.0); Imm Gran Abs Auto 0.03 X10*3/uL (0.00-0.03); Imm Gran Pct Auto 0.3 % (0.0-0.4); Lymphocytes Absolute Auto 1.2 X10*3/uL (1.2-4.9); Mean Corpuscular HGB Conc 34.0 g/dl (31.0-35.0); Mean Corpuscular Hemoglobin 30.7 pg (27.0-33.0); Mean Corpuscular Volume 90.2 fL (80.0-98.0); NRBC Abs Auto 0.000 X10*3/uL (0.0-0.012); NRBC Pct Auto 0.0 /100WBC (0.0-0.2); Platelet Count 277 X10*3/uL (160-400); Red Blood Count 3.78 X10*6/uL (4.20-5.50); White Blood Count 10.8 X10*3/uL (4.8-10.8)
[2025-03-07 09:08] LABS: Anion Gap 13 (12-20); Blood Urea Nitrogen 18 mg/dL (9-16); Calcium 8.4 mg/dL (8.4-10.2); Carbon Dioxide 25 mmol/L (22-29); Chloride 107 mmol/L (96-108); Creatinine Clr Calc Pharmacy 65.9; Estimated Glomerular Filt Rate > 60; Magnesium 1.7 mg/dL (1.6-2.6); Potassium 3.7 mmol/L (3.3-5.1); Sodium 141 mmol/L (135-145)
--- NOTE | 2025-03-07 09:11 | PHA.MEDREC ---
Addendum entered by Martha Molina RPh 03/07/25 10:47: MED REC REVIEWED BY [facility] Original Note: Pharmacy Consult ? Medication Reconciliation Pharmacy has completed the medication reconciliation. Spoke to patient through wafer polishing worker service to confirm med list. Patient states she doesn't know the names of her medications, shoe only know what they are for. Patient states she gets a medbox through [facility] pharmacy. Patient was able to confirm Lantus Solostar 28 units at bedtime. Spoke to [facility] and received a verbal List of medications. [facility] states Buspropion HCi 150 mg was D/C'd 01/20/25
--- NOTE | 2025-03-07 10:32 | P.PNIM_ITS ---
Subjective Subjective Date of Service: 03/07/25 Interval History: History obtained with the help of hourly sign language interpreter. Patient states that when her niece is not at home she occasionally takes excess amount of her home medications and occasionally misses some doses. Is awake, alert and oriented this morning. Blood sugar low this a.m. Constitutional Constitutional: Denies body ache(s), Denies chills, Denies fatigue, Denies fever(s) and Denies headache(s) Eyes Eyes: Denies change in vision ENT Ears, Nose, Mouth, and Throat: Denies headache(s), Denies nasal congestion and Denies sore throat Cardiovascular Cardiovascular: Denies chest pain, Denies rapid heart rate, Denies leg edema, Denies lightheadedness and Denies dyspnea Respiratory Respiratory: Denies chest congestion, Denies cough, Denies dyspnea and Denies wheezing Gastrointestinal Gastrointestinal: Denies abdominal pain, Denies diarrhea, Denies nausea and Denies vomiting Musculoskeletal Musculoskeletal: Denies back pain and Denies myalgias Integumentary/Breasts Skin/Breast: Denies rash Neurologic Neurologic: Denies headache(s) Endocrine Endocrine: Denies fatigue Hematologic/Lymphatic Hematologic/Lymphatic: Denies easy bleeding and Denies easy bruising Allergic/Immunologic Allergic/Immunologic: Denies wheezing Physical Exam 2 Vital Signs: Vital Signs: Last Vital Signs Temp 98.1 F 03/07/25 07:05 Pulse 71 03/07/25 07:05 Resp 16 03/07/25 07:05 BP 109/58 L 03/07/25 07:05 Pulse Ox 98 03/07/25 07:05 O2 Del Method Room Air 03/07/25 07:05 BMI result Body Mass Index 30.6 Const: Other: Middle-aged female lying in bed in no distress Neck supple, no JVD Regular rate and rhythm, S1-S2 heard Regular breath sounds bilaterally, no wheezing or crackles appreciated Abdomen soft nontender, no guarding, no rigidity Patient is awake, alert and oriented x3 ; no focal motor deficit Psych: Normal mood No pedal edema Objective Data Active Medications Acetaminophen (Acetaminophen 325 Mg Tablet) 975 mg PO Q6H PRN PRN Reason: Pain, Mild 1-3,fever,headache Calcium Carbonate (Calcium Carbonate 750 Mg Tab.Chew) 750 mg PO Q4H PRN PRN Reason: Heartburn Ceftriaxone Sodium (Ceftriaxone Sodium 2 Gm Vial) 2 gm IVPUSH Q24H [facility] Dextrose (Dextrose 50 % 25 Gm/50 Ml Syringe) 25 gm IVPUSH Q15M PRN; Protocol PRN Reason: per Hypoglycemia Standing Ord. Last Admin: 03/07/25 07:12 Dose: 25 gm Documented By: MITRA Enoxaparin Sodium (Enoxaparin Sodium 40 Mg/0.4 Ml Syringe) 40 mg SUBCUT Q24H [facility] Last Admin: 03/07/25 07:30 Dose: 40 mg Documented By: MITRA Glucose (Glucose Gel 15 Gm Gel..Gram.) 15 gm PO Q15M PRN; Protocol PRN Reason: per Hypoglycemia Standing Ord. Dextrose/Lactated Ringer's (D5lr) 1,000 mls @ 75 mls/hr IVCONT .[id number] [facility] Last Admin: 03/07/25 07:31 Dose: 75 mls/hr Documented By: MITRA Insulin Human Lispro (Insulin Lispro 100 Unit/Ml 3 Ml Vial) 0 unit SUBCUT QIDACHS [facility]; Protocol Last Admin: 03/07/25 07:16 Dose: Not Given Documented By: MITRA Non-Admin Reason: poc =35, amp of dextrose given/ MD notified Magnesium Hydroxide (Milk Of Magnesia 30 Ml Oral.Susp) 30 ml PO DAILY PRN PRN Reason: Constipation Melatonin (Melatonin 3 Mg Tablet) 6 mg PO BEDTIME PRN PRN Reason: Insomnia Ondansetron HCl (Ondansetron Hcl 4 Mg/2 Ml Vial) 4 mg IVPUSH Q8H PRN PRN Reason: Nausea and Vomiting Sodium Chloride (0.9 % Sodium Chloride Flush 3 Ml Syringe) 3 ml IVFLUSH QSHIFT [facility] Last Admin: 03/07/25 07:16 Dose: 3 ml Documented By: MITRA Labs 03/07/25 08:34 03/07/25 08:34 Labs: Laboratory Results - last 24 hr 03/06/25 03/06/25 03/06/25 16:46 17:23 17:32 MCV 88.7 MCH 30.8 MCHC 34.7 RDW 12.4 Plt Count 296 MPV 9.9 Immature Gran % (Auto) 0.4 Neut % (Auto) 92.1 H Lymph % (Auto) 5.1 L [place] % (Auto) 2.0 Eos % (Auto) 0.3 Baso % (Auto) 0.1 Lymph # (Auto) 0.8 L [place] # (Auto) 0.3 Eos # (Auto) 0.1 Baso # (Auto) 0.0 Abs Immat Gran (auto) 0.07 H Absolute Neuts (auto) 14.4 H Absolute Nucleated RBC 0.000 Nucleated RBC % (auto) 0.0 Smear Tech's Comments VERIFIED Anion Gap 20 Estim Creat Clear Calc 53.9 Estimated GFR > 60 POC Glucose 145 H 143 H Random Glucose 156 H Lactic Acid 2.7 H* Lactic Acid F/U @ 2Hr Lactic Acid F/U @ 4Hr Calcium 9.3 Magnesium 1.4 L* Total Bilirubin 0.4 AST 31 ALT 31 Alkaline Phosphatase 107 B-Natriuretic Peptide 39 Total Protein 7.4 Albumin 4.3 Urine Color Urine Appearance Urine pH Ur Specific [place] Urine Protein Urine Glucose (UA) Urine Ketones Urine Blood Urine Nitrite Ur Leukocyte Esterase Urine RBC Urine WBC Ur Squamous Epith Cells Urine Bacteria Hyaline Casts 03/06/25 03/06/25 03/06/25 18:04 19:58 21:01 MCV MCH MCHC RDW Plt Count MPV Immature Gran % (Auto) Neut % (Auto) Lymph % (Auto) [place] % (Auto) Eos % (Auto) Baso % (Auto) Lymph # (Auto) [place] # (Auto) Eos # (Auto) Baso # (Auto) Abs Immat Gran (auto) Absolute Neuts (auto) Absolute Nucleated RBC Nucleated RBC % (auto) Smear Tech's Comments Anion Gap Estim Creat Clear Calc Estimated GFR POC Glucose 116 H Random Glucose Lactic Acid Lactic Acid F/U @ 2Hr 3.5 H* Lactic Acid F/U @ 4Hr Calcium Magnesium Total Bilirubin AST ALT Alkaline Phosphatase B-Natriuretic Peptide Total Protein Albumin Urine Color Yellow Urine Appearance Clear Urine pH 5.5 Ur Specific [place] 1.015 Urine Protein Negative Urine Glucose (UA) Negative Urine Ketones Negative Urine Blood Negative Urine Nitrite Positive H Ur Leukocyte Esterase Trace H Urine RBC 0-2 Urine WBC 0-5 Ur Squamous Epith Cells 0-2 Urine Bacteria Trace Hyaline Casts 0-2 03/06/25 03/06/25 03/06/25 21:05 21:54 22:34 MCV MCH MCHC RDW Plt Count MPV Immature Gran % (Auto) Neut % (Auto) Lymph % (Auto) [place] % (Auto) Eos % (Auto) Baso % (Auto) Lymph # (Auto) [place] # (Auto) Eos # (Auto) Baso # (Auto) Abs Immat Gran (auto) Absolute Neuts (auto) Absolute Nucleated RBC Nucleated RBC % (auto) Smear Tech's Comments Anion Gap Estim Creat Clear Calc Estimated GFR POC Glucose 81 81 Random Glucose Lactic Acid Lactic Acid F/U @ 2Hr Lactic Acid F/U @ 4Hr 3.9 H* Calcium Magnesium Total Bilirubin AST ALT Alkaline Phosphatase B-Natriuretic Peptide Total Protein Albumin Urine Color Urine Appearance Urine pH Ur Specific [place] Urine Protein Urine Glucose (UA) Urine Ketones Urine Blood Urine Nitrite Ur Leukocyte Esterase Urine RBC Urine WBC Ur Squamous Epith Cells Urine Bacteria Hyaline Casts 03/07/25 03/07/25 03/07/25 00:50 01:15 01:36 MCV MCH MCHC RDW Plt Count MPV Immature Gran % (Auto) Neut % (Auto) Lymph % (Auto) [place] % (Auto) Eos % (Auto) Baso % (Auto) Lymph # (Auto) [place] # (Auto) Eos # (Auto) Baso # (Auto) Abs Immat Gran (auto) Absolute Neuts (auto) Absolute Nucleated RBC Nucleated RBC % (auto) Smear Tech's Comments Anion Gap Estim Creat Clear Calc Estimated GFR POC Glucose 23 L* 161 H 130 H Random Glucose Lactic Acid Lactic Acid F/U @ 2Hr Lactic Acid F/U @ 4Hr Calcium Magnesium Total Bilirubin AST ALT Alkaline Phosphatase B-Natriuretic Peptide Total Protein Albumin Urine Color Urine Appearance Urine pH Ur Specific [place] Urine Protein Urine Glucose (UA) Urine Ketones Urine Blood Urine Nitrite Ur Leukocyte Esterase Urine RBC Urine WBC Ur Squamous Epith Cells Urine Bacteria Hyaline Casts 03/07/25 03/07/25 03/07/25 01:55 02:12 07:09 MCV MCH MCHC RDW Plt Count MPV Immature Gran % (Auto) Neut % (Auto) Lymph % (Auto) [place] % (Auto) Eos % (Auto) Baso % (Auto) Lymph # (Auto) [place] # (Auto) Eos # (Auto) Baso # (Auto) Abs Immat Gran (auto) Absolute Neuts (auto) Absolute Nucleated RBC Nucleated RBC % (auto) Smear Tech's Comments Anion Gap Estim Creat Clear Calc Estimated GFR POC Glucose 123 H 114 35 L* Random Glucose Lactic Acid Lactic Acid F/U @ 2Hr Lactic Acid F/U @ 4Hr Calcium Magnesium Total Bilirubin AST ALT Alkaline Phosphatase B-Natriuretic Peptide Total Protein Albumin Urine Color Urine Appearance Urine pH Ur Specific [place] Urine Protein Urine Glucose (UA) Urine Ketones Urine Blood Urine Nitrite Ur Leukocyte Esterase Urine RBC Urine WBC Ur Squamous Epith Cells Urine Bacteria Hyaline Casts 03/07/25 03/07/25 03/07/25 07:36 08:34 08:51 MCV 90.2 MCH 30.7 MCHC 34.0 RDW 12.6 Plt Count 277 MPV 9.7 Immature Gran % (Auto) 0.3 Neut % (Auto) 80.5 H Lymph % (Auto) 11.2 L [place] % (Auto) 5.9 Eos % (Auto) 1.8 Baso % (Auto) 0.3 Lymph # (Auto) 1.2 [place] # (Auto) 0.6 Eos # (Auto) 0.2 Baso # (Auto) 0.0 Abs Immat Gran (auto) 0.03 Absolute Neuts (auto) 8.7 H Absolute Nucleated RBC 0.000 Nucleated RBC % (auto) 0.0 Smear Tech's Comments Anion Gap 13 Estim Creat Clear Calc 65.9 Estimated GFR > 60 POC Glucose 180 H 170 H Random Glucose 176 H Lactic Acid Lactic Acid F/U @ 2Hr Lactic Acid F/U @ 4Hr Calcium 8.4 D Magnesium 1.7 Total Bilirubin AST ALT Alkaline Phosphatase B-Natriuretic Peptide Total Protein Albumin Urine Color Urine Appearance Urine pH Ur Specific [place] Urine Protein Urine Glucose (UA) Urine Ketones Urine Blood Urine Nitrite Ur Leukocyte Esterase Urine RBC Urine WBC Ur Squamous Epith Cells Urine Bacteria Hyaline Casts Microbiology Microbiology Results: Microbiology 03/06/25 21:13 Urine Culture - Preliminary Urine clean catch - Clean Catch Midstream No growth to date. Assessment and Plan (1) Acute metabolic encephalopathy due to hypoglycemia: Status: Acute Plan Patient is a 69-year-old French-speaking female with a past medical history significant for type 2 diabetes on insulin, hypertension, hyperlipidemia, ischemic cardiomyopathy, history CVA with left-sided weakness, HFrEF (EF 45-50% 02/2023), who presented to the ED due to altered mental status. #. Acute metabolic encephalopathy due to hypoglycemia: Mentation resolved with correction of glucose. Will increase D5 LR to 75 cc/hr due to ongoing hypoglycemia. Accu-Cheks q.4 #. Acute lactic acidosis due to hypoglycemia. No sepsis #. Leukocytosis, reactive #. Hypomagnesemia: Repleted #. Insulin-dependent type 2 diabetes mellitus: Continue holding basal insulin for ongoing hypoglycemia #. Hypertension: On amlodipine #. Congestive heart failure with reduced ejection fraction: No exacerbation. Continue home Lasix and beta-lo #. Mixed hyperlipidemia: On statin Full code VTE prophy: lovenox Reason for continued hospitalization: IV dextrose fluids, close monitoring of glucose Quality Stroke Does the patient have a stroke diagnosis?: No VTE Prior VTE?: No VTE Risk Level:: Medical - moderate - high VTE Device Contraindication: Treatment Not Indicated VTE Drug Contraindication: N/A - Med Ordered
[2025-03-07 10:54] LABS: Glucose, Whole Blood 174 mg/dL (60-115)
[2025-03-07 11:08] VITALS: BP 131/60; PULSE 62; RESP 16; TEMP 36.3; O2SAT 95
--- NOTE | 2025-03-07 11:24 | MHC.CM.PN ---
IMM given 03/07. This CM met with pt with the assistance of a regulatory lead to complete CM intake assessment. Pt states she lives with her niece. Pt uses a cane and a walker. Pt has 42.5hr/week of [facility] services. Pts [facility] may be able to transport her home at discharge, otherwise she will need assistance with transport. HCP on file and verified. PCP: Dr. Lenadra Jim
[2025-03-07 14:35] LABS: Glucose, Whole Blood 153 mg/dL (60-115)
[2025-03-07 15:32] VITALS: BP 132/60; PULSE 62; RESP 18; TEMP 36.2; O2SAT 96
[2025-03-07 17:21] LABS: Glucose, Whole Blood 236 mg/dL (60-115)
--- NOTE | 2025-03-07 18:15 | PC.NURSE ---
Pt was admitted to the hospital via EMS who placed a field IO left [place] access site per previous RN report. IO site remained in left [place] upon admission to the unit. Nurse educator David Amaro noted site to be removed within 24 hours. Bry Orozco MACHINE ETCHER to room to remove IO site as per hospital protocol. Pt tolerated well. Dsg applied to site c/d/i. No c/o pain.
[2025-03-07 19:31] VITALS: BP 114/56; PULSE 67; RESP 20; TEMP 36.8; O2SAT 96
[2025-03-07 20:06] LABS: Glucose, Whole Blood 283 mg/dL (60-115)
[2025-03-07 23:48] LABS: Glucose, Whole Blood 127 mg/dL (60-115)
[2025-03-08] VITALS: BP 129/56; PULSE 60; RESP 20; TEMP 36.6; O2SAT 95
[2025-03-08 04:00] VITALS: BP 131/53; PULSE 59; RESP 16; TEMP 36.3; O2SAT 93
[2025-03-08 04:03] LABS: Glucose, Whole Blood 133 mg/dL (60-115)
[2025-03-08 06:59] LABS: MANUAL DIFF FLAG NO
[2025-03-08 07:09] VITALS: BP 137/63; PULSE 68; RESP 17; TEMP 36.6; O2SAT 96
[2025-03-08 07:24] LABS: Glucose, Whole Blood 126 mg/dL (60-115)
[2025-03-08 07:30] LABS: Anion Gap 14 (12-20); Blood Urea Nitrogen 15 mg/dL (9-16); Calcium 8.5 mg/dL (8.4-10.2); Carbon Dioxide 27 mmol/L (22-29); Chloride 107 mmol/L (96-108); Creatinine Clr Calc Pharmacy 51.5; Estimated Glomerular Filt Rate 55; Magnesium 1.5 mg/dL (1.6-2.6); Potassium 3.6 mmol/L (3.3-5.1); Sodium 144 mmol/L (135-145)
[2025-03-08 07:33] LABS: Hematocrit 30.9 % (37.0-47.0); Hemoglobin 10.7 g/dl (12.0-16.0); Imm Gran Abs Auto 0.02 X10*3/uL (0.00-0.03); Imm Gran Pct Auto 0.3 % (0.0-0.4); Lymphocytes Absolute Auto 2.1 X10*3/uL (1.2-4.9); Mean Corpuscular HGB Conc 34.6 g/dl (31.0-35.0); Mean Corpuscular Hemoglobin 30.9 pg (27.0-33.0); Mean Corpuscular Volume 89.3 fL (80.0-98.0); NRBC Abs Auto 0.000 X10*3/uL (0.0-0.012); NRBC Pct Auto 0.0 /100WBC (0.0-0.2); Platelet Count 262 X10*3/uL (160-400); Red Blood Count 3.46 X10*6/uL (4.20-5.50); White Blood Count 7.9 X10*3/uL (4.8-10.8)
[2025-03-08] MEDS: Ferrous Sulfate 324 MG TABLET.DR PO (07:50)
[2025-03-08] MEDS: Aspirin Enteric Coated 81 MG TABLET.DR PO (07:50)
[2025-03-08] MEDS: 0.9 % Sodium Chloride Flush 3 ML SYRINGE IVFLUSH (07:51)
--- NOTE | 2025-03-08 08:18 | PM.DS ---
DS: Providers Provider Date of Service: 03/08/25 Date of admission: 03/06/25 22:34 Date of discharge: 03/08/25 Primary care physician: Leandra Jim MD Consults: 03/07/25 13:46 Consult to Wound Care Routine Reason for consultation: MASD under breasts/ buttock Has provider been notified: Yes DS: Diagnosis Discharge Diagnosis (1) Acute metabolic encephalopathy due to hypoglycemia: Status: Acute DS: Summary Hospital Course Hospital Course: HPI as per admitting provider: Patient is a 69-year-old Romanian-speaking female with a past medical history significant for type 2 diabetes on insulin, hypertension, hyperlipidemia, ischemic cardiomyopathy, history CVA with left-sided weakness, HFrEF (EF 45-50% 02/2023), who presented to the ED due to altered mental status. The patient was found minimally responsive by her CHIROPRACTIC DOCTOR around 16:00 and EMS was called. LKWT was 9:00am. The pt reports that she was eating and drinking normally today and was unaware why she is in the ED. Patient reports that she usually takes her insulin at bedtime, she received her insulin last night An IO was placed and the patient was given 1 mg IM glucagon and 50 mL of D10, blood sugar was 39, improved to 145 with above treatment. She denies any headache, change in vision, chest pain, shortness of breath, nausea, vomiting or abdominal pain. She does note foul smelling urine but denies any frequency, urgency or dysuria. Hospital course: Patient was admitted with IV dextrose fluids for acute metabolic encephalopathy due to hypoglycemia. Patient's mentation improved and returned to baseline prior to discharge with improvement in blood glucose. Patient states she has VNA at home normally heard niece gives her the home prescription medications. Patient's niece was not present on the day that she came to the ER and hence she might have taken excess insulin and did not eat her dinner after taking insulin. Explained to her the importance of taking the right amount of insulin and not skipping meals. Patient verbalized understanding. Will reduce Lantus from 28 units to 14 units at bedtime. Close follow-up with PCP for monitoring of serum glucose and titration of patient's insulin regimen. Status at Discharge Functional status at discharge: independent ambulation Overall status at discharge: patient is back to baseline Time Attestation Discharge Coordination Time (in mins): Forty Quality: Safe Use of Opioids Does Pt have an Active Cancer Diagnosis on the Problem List?: No Quality: Stroke Does the patient have a stroke diagnosis?: No Physical Exam Vital Signs: Vital Signs: Last Vital Signs Temp 98 F 03/08/25 07:09 Pulse 68 03/08/25 07:09 Resp 17 03/08/25 07:09 BP 137/63 03/08/25 07:09 Pulse Ox 96 03/08/25 07:09 O2 Del Method Room Air 03/08/25 07:09 BMI result Body Mass Index 30.6 Const: Other: Middle-aged female lying in bed in no distress Neck supple, no JVD Regular rate and rhythm, S1-S2 heard Regular breath sounds bilaterally, no wheezing or crackles appreciated Abdomen soft nontender, no guarding, no rigidity Patient is awake, alert and oriented x3 ; no focal motor deficit Psych: Normal mood No pedal edema DS: Data Data Completed and Pending Labs on day of discharge: Laboratory Results - last 24 hr 03/07/25 03/07/25 03/07/25 08:34 08:51 10:47 WBC 10.8 RBC 3.78 L Hgb 11.6 L Hct 34.1 L MCV 90.2 MCH 30.7 MCHC 34.0 RDW 12.6 Plt Count 277 MPV 9.7 Immature Gran % (Auto) 0.3 Neut % (Auto) 80.5 H Lymph % (Auto) 11.2 L [place] % (Auto) 5.9 Eos % (Auto) 1.8 Baso % (Auto) 0.3 Lymph # (Auto) 1.2 [place] # (Auto) 0.6 Eos # (Auto) 0.2 Baso # (Auto) 0.0 Abs Immat Gran (auto) 0.03 Absolute Neuts (auto) 8.7 H Absolute Nucleated RBC 0.000 Nucleated RBC % (auto) 0.0 Sodium 141 Potassium 3.7 Chloride 107 Carbon Dioxide 25 Anion Gap 13 BUN 18 H Creatinine 0.79 Estim Creat Clear Calc 65.9 Estimated GFR > 60 POC Glucose 170 H 174 H Random Glucose 176 H Calcium 8.4 D Magnesium 1.7 03/07/25 03/07/25 03/07/25 14:31 17:17 19:59 WBC RBC Hgb Hct MCV MCH MCHC RDW Plt Count MPV Immature Gran % (Auto) Neut % (Auto) Lymph % (Auto) [place] % (Auto) Eos % (Auto) Baso % (Auto) Lymph # (Auto) [place] # (Auto) Eos # (Auto) Baso # (Auto) Abs Immat Gran (auto) Absolute Neuts (auto) Absolute Nucleated RBC Nucleated RBC % (auto) Sodium Potassium Chloride Carbon Dioxide Anion Gap BUN Creatinine Estim Creat Clear Calc Estimated GFR POC Glucose 153 H 236 H 283 H Random Glucose Calcium Magnesium 03/07/25 03/08/25 03/08/25 23:29 03:59 06:41 WBC 7.9 RBC 3.46 L Hgb 10.7 L Hct 30.9 L MCV 89.3 MCH 30.9 MCHC 34.6 RDW 12.8 Plt Count 262 MPV 9.9 Immature Gran % (Auto) 0.3 Neut % (Auto) 60.4 Lymph % (Auto) 26.2 [place] % (Auto) 7.4 Eos % (Auto) 5.4 H Baso % (Auto) 0.3 Lymph # (Auto) 2.1 [place] # (Auto) 0.6 Eos # (Auto) 0.4 Baso # (Auto) 0.0 Abs Immat Gran (auto) 0.02 Absolute Neuts (auto) 4.8 Absolute Nucleated RBC 0.000 Nucleated RBC % (auto) 0.0 Sodium 144 Potassium 3.6 Chloride 107 Carbon Dioxide 27 Anion Gap 14 BUN 15 Creatinine 1.01 Estim Creat Clear Calc 51.5 Estimated GFR 55 POC Glucose 127 H 133 H Random Glucose 141 H Calcium 8.5 Magnesium 1.5 L 03/08/25 07:21 WBC RBC Hgb Hct MCV MCH MCHC RDW Plt Count MPV Immature Gran % (Auto) Neut % (Auto) Lymph % (Auto) [place] % (Auto) Eos % (Auto) Baso % (Auto) Lymph # (Auto) [place] # (Auto) Eos # (Auto) Baso # (Auto) Abs Immat Gran (auto) Absolute Neuts (auto) Absolute Nucleated RBC Nucleated RBC % (auto) Sodium Potassium Chloride Carbon Dioxide Anion Gap BUN Creatinine Estim Creat Clear Calc Estimated GFR POC Glucose 126 H Random Glucose Calcium Magnesium Preliminary micro results at discharge 03/06/25 17:32 Blood Culture - Preliminary Blood - Venous No growth after 24 hours. 03/06/25 17:32 Blood Culture - Preliminary Blood - Venous No growth after 24 hours. 03/06/25 21:13 Urine Culture - Preliminary Urine clean catch - Clean Catch Midstream No growth to date. Discharge Plan Discharge Anticipated Discharge Date/Time: 03/08/25 08:14 Patient Disposition: Home, Self-Care Discharge Diagnosis: Acute metabolic encephalopathy due to hypoglycemia Referrals: Leandra Gee MD [Primary Care Provider, Internal Medicine] - 1 Week Discharge Medications: Continued cyanocobalamin (vitamin B-12) [Vitamin B-12] 1,000 mcg Tablet 1,000 mcg PO DAILY ascorbic acid (vitamin C) [Vitamin C] 500 mg Tablet 500 mg PO DAILY ferrous sulfate 325 mg (65 mg iron) Tablet 325 mg PO DAILY omeprazole 20 mg Capsule,Delayed Release(Dr/Ec) 20 mg PO DAILY docusate sodium [Colace] 100 mg Capsule 100 mg PO DAILY PRN (Reason: Constipation) donepezil 5 mg tablet 5 mg PO BEDTIME atorvastatin 40 mg tablet 40 mg PO BEDTIME aspirin 81 mg tablet,delayed release (DR/EC) 81 mg PO DAILY cholecalciferol (vitamin D3) [Vitamin D3] 50 mcg (2,000 unit) capsule 50 mcg PO DAILY escitalopram oxalate 20 mg tablet 20 mg PO DAILY amlodipine 10 mg tablet 10 mg PO DAILY carvedilol 25 mg tablet 25 mg PO BID Rx Instructions: must administer with a meal/food folic acid 1 mg tablet 1 mg PO DAILY furosemide 20 mg tablet 20 mg PO DAILY gabapentin 300 mg capsule 300 mg PO BEDTIME metformin 1,000 mg tablet 1,000 mg PO BID Changed insulin glargine [Lantus Solostar U-100 Insulin] 100 unit/mL (3 mL) Insulin Pen 14 unit SUBCUT BEDTIME 30 Days Qty: 0 0RF Discharge Orders: Discharge Order (Routine); Ordered 03/08/25 Ordered By: Karely Steinberg Diet: Diabetic diet Activity on Discharge: As tolerated Stand Alone Forms: Patient Portal Discharge page Print Language: Romanian Care Plan Goals: Follow-up with PCP within 1 week to monitor blood glucose and magnesium ; also titration of insulin regimen Health Concerns: Insulin-dependent diabetes mellitus Plan of Treatment: Reduce basal insulin: Lantus to 14 units at bedtime Assessment: As above
--- NOTE | 2025-03-08 09:04 | MHC.CM.PN ---
Addendum entered by Marlee Smallwood RN 03/08/25 14:45: [facility] has accepted. Addendum entered by Marlee Smallwood RN 03/08/25 13:50: Niece at bedside to provide transport home. Requesting [facility] for SN services. Dr. Steinberg aware and agreeable to plan. Preference to [facility]. Referral sent via [facility]. Awaiting response. Original Note: Patient medically cleared for dc home, resume ORDER EXPEDITER services. Niece to transport. JOSEF aware.
[2025-03-08] MEDS: Magnesium Sulfate/H2O 2 GM/50 ML PIGGYBACK IV (09:40)
[2025-03-08 11:36] LABS: Glucose, Whole Blood 241 mg/dL (60-115)
[2025-03-08 12:00] VITALS: BP 135/61; PULSE 72; RESP 18; TEMP 36.3; O2SAT 96
--- NOTE | 2025-03-08 13:47 | P.F2F_ITS ---
Service Date Service Date: 03/08/25 Encounter Date of encounter: 03/08/25 Reasons for Services Signs and symptoms assessed: Weakness due to hospitalization Reason for intermediate: diabetic teaching, monitoring of unstable blood sugar, medication management and medication treatment Homebound: Leaving the home is medically contraindicated at this time without the asist of a device and/or another person due th the listed conditions above and below. Reason homebound: weakness related to hospital stay Certification: Based on the above findings, I certify that this patient is confined to the home and needs intermittent intermediate care, physical therapy and/or speech therapy, or continues to need occupational therapy. The patient is under my care, and I have initiated the establishment of the plan of care. The patient will be followed by a physician who will periodically review the plan of care. Time Spent With Patient Time: Total time managing care of this patient today ____ minutes.
== END 2025-03-08 13:52 | disposition home or self-care (01) | DRG 871 ==
LOC: HO.ED 20:43 → HO.EDOVER 23:53 → HO.IMC 03-07 02:08
PROVIDERS: Physician Assistant; Admitting Provider Hospitalist; Emergency Provider Internal Medicine; PCP Internal Medicine; Visit Provider Student in an Organized Health Care Education/Training Program
DX: A41.9 Sepsis, unspecified organism (principal); G93.41 Metabolic encephalopathy; I69.354 Hemiplegia and hemiparesis following cerebral infarction affecting left non-dominant side; I50.22 Chronic systolic (congestive) heart failure; N39.0 Urinary tract infection, site not specified; E11.649 Type 2 diabetes mellitus with hypoglycemia without coma; E83.42 Hypomagnesemia; I25.5 Ischemic cardiomyopathy; R65.20 Severe sepsis without septic shock; E78.2 Mixed hyperlipidemia; Z87.891 Personal history of nicotine dependence; Z79.4 Long term (current) use of insulin; Z79.82 Long term (current) use of aspirin; Z79.84 Long term (current) use of oral hypoglycemic drugs; Z79.899 Other long term (current) drug therapy
CPT/HCPCS: 36415; 71045; 80048; 80053; 81001; 82947; 83605; 83735; 83880; 84484; 85025; 87040; 87086; 93005; 99285; J0696; J1650; J3475; J7120

== ENCOUNTER → 2025-03-06 16:57 | Outpatient (BNV) | payer OTHER, SELFPAY | PROVIDERS: Admitting Provider Hospitalist; Emergency Provider Internal Medicine; PCP Internal Medicine; Visit Provider Internal Medicine Cardiovascular Disease | DX: I25.2 Old myocardial infarction (principal) | CPT/HCPCS: 93010 ==

== ENCOUNTER → 2025-03-06 17:04 | Outpatient (BNV) | payer OTHER, SELFPAY | PROVIDERS: Emergency Provider Internal Medicine; PCP Internal Medicine; Visit Provider Radiology Diagnostic Radiology | DX: R41.82 Altered mental status, unspecified (principal) | CPT/HCPCS: 71045 ==

== ENCOUNTER → 2025-03-06 22:34 | Outpatient (BNV) | payer OTHER, SELFPAY | PROVIDERS: Admitting Provider Hospitalist; Emergency Provider Internal Medicine; PCP Internal Medicine; Visit Provider Student in an Organized Health Care Education/Training Program | DX: G93.41 Metabolic encephalopathy (principal); E16.2 Hypoglycemia, unspecified | CPT/HCPCS: 99223; 99232; 99239; G0180 ==

== ENCOUNTER 2025-05-16 21:21 | Emergency (ER) | payer OTHER, SELFPAY ==
[2025-05-16 21:28] VITALS: BP 128/54; BP 151/43; PULSE 58; PULSE 64; RESP 14; TEMP 36.5; O2SAT 100; O2SAT 98; BMI 30.8
[2025-05-16 21:32] LABS: Glucose, Whole Blood 235 mg/dL (60-115)
--- NOTE | 2025-05-16 21:34 | PC.NURSE ---
triage completed, notified primary nurse Raquelm.
--- NOTE | 2025-05-16 21:39 | ED_ITS ---
HPI - General Adult General Chief complaint: General Medical Stated complaint: Administered too much insulin by aid Time Seen by Provider: 05/16/25 21:39 History of Present Illness ED Provider: Eliezer ROSEN narrative: The patient is a 69-year-old female. She lives with a woman who functions as her ASSOCIATE AUTOMATION ENGINEER. The patient is a type 2 diabetic who normally takes 14 units of Lantus insulin in the evenings. The ASSOCIATE AUTOMATION ENGINEER also takes care of another woman who takes 68 units of Lantus insulin in the evening. Apparently this evening the ASSOCIATE AUTOMATION ENGINEER got confused. The patient had just had a new wearable glucose monitor attached which was beeping indicating a possible low blood sugar. The ASSOCIATE AUTOMATION ENGINEER checked a fingerstick which showed a normal blood sugar. This was around the time that the patient was supposed to get her evening dose of Lantus. The ASSOCIATE AUTOMATION ENGINEER accidentally gave the patient a dose of 68 units of Lantus instead of the usual 14. The ASSOCIATE AUTOMATION ENGINEER quickly realized her mistake and called 911 and the patient was brought to the hospital. The patient is asymptomatic. Related Data Home Medications ?Medication ?Instructions ?Recorded ?Confirmed amlodipine 10 mg tablet 10 mg PO DAILY 12/08/2008/31 carvedilol 25 mg tablet 25 mg PO BID 12/08/20 folic acid 1 mg tablet 1 mg PO DAILY 12/08/2003/07 furosemide 20 mg tablet 20 mg PO DAILY 12/08/2008/31 gabapentin 300 mg capsule 300 mg PO BEDTIME 12/08/20 0 03/07/25 metformin 1,000 mg tablet 1,000 mg PO BID 12/08/2008/31 ascorbic acid (vitamin C) 500 mg 500 mg PO DAILY 06/1603/07/25 tablet (Vitamin C) cyanocobalamin (vitamin B-12) 1,000 mcg PO DAILY 06/1603/07/25 1,000 mcg tablet (Vitamin B-12) docusate sodium 100 mg capsule 100 mg PO DAILY PRN Con stipation 06/16/21 03/07/25 (Colace) ferrous sulfate 325 mg (65 mg 325 mg PO DAILY 06/16/21 03/07/25 iron) tablet omeprazole 20 mg capsule,delayed 20 mg PO DAILY 03/07/25 release cholecalciferol (vitamin D3) 50 50 mcg PO DAILY 03/07/25 mcg (2,000 unit) capsule (Vitamin D3) escitalopram oxalate 20 mg tablet 20 mg PO DAILY 08/1603/07/25 aspirin 81 mg tablet,delayed 81 mg PO DAILY 03/07/25 0 03/07/25 release atorvastatin 40 mg tablet 40 mg PO BEDTIME 03/07/25 donepezil 5 mg tablet 5 mg PO BEDTIME 03/07/2508/31 Previous Rx's ?Medication ?Instructions ?Recorded blood sugar diagnostic (Gluco #50 ea 03/08/25 Navii Test Strip) blood-glucose meter (Gluco Navii #1 ea 03/08/25 Glucose Monitor kit) insulin glargine 100 unit/mL (3 14 unit (0.14 mL) subc ut BEDTIME 03/08/25 mL) subcutaneous pen (Lantus 30 days #0 mL Solostar U-100 Insulin) lancets #100 ea 03/08/25 nystatin 100,000 unit/gram topical 1 appl topical TID 14 days #30 03/08/25 powder grams Allergies Allergy/AdvReac Type Severity Reaction Status Date / Time No Known Drug Allergies Allergy Unknown U Verified 05/16/25 21:33 Review of Systems 2 Review of Systems: Yes all other systems are reviewed and are negative [facility] Past Medical History Medical History Anemia Vitamin B 12 deficiency Neuropathy CHF (congestive heart failure) Elevated cholesterol Depression CVA (cerebral vascular accident) CKD (chronic kidney disease) Asthma Type 2 diabetes mellitus with unspecified complications Essential hypertension Atherosclerotic cardiovascular disease Ischemic cardiomyopathy Surgical History History of bilateral cataract extraction Hx of cardiac catheterization Social History Social History Household Members: Family Household Members Other:: nephew Housing: House Are you a primary resident care supervisor to a significant other at home: No Do you presently have visiting nurse or other home services: Yes Alcohol intake: former Patient Tobacco Use Status: Former Tobacco user Tobacco use type: Cigarette Smoked in Last 30 Days: No Use of substances other than those prescribed or required for medical reasons: No Advance Directives: Yes Advance Directives on File: Yes Advance Directives Date on File: 08/16/23 Do you have a plan to hurt others: No Plan service: No Physical Exam ED Vital Signs: Vital Signs - 24 hr 05/16/25 21:28 05/17/25 02:07 05/17/25 06:41 Temperature 97.7 F 97.7 F Pulse Rate 58 60 58 Respiratory Rate 14 17 18 Blood Pressure 151/43 H 116/35 L 132/38 L Pulse Oximetry 100 96 97 Oxygen Delivery Method Room Air Room Air Room Air BMI result Body Mass Index 30.8 Const Other: The patient is a somewhat chronically ill-appearing 69-year-old woman who was awake and alert, pleasant and cooperative. She does not appear in acute distress. Orientation/consciousness: patient oriented x3 HENMT Other: The face is symmetrical. ?Mucous membranes moist. Eyes Other: Pupils are round equal, conjunctivae are clear, extraocular movements intact General: appearance normal, both eyes and all related structures Neck Other: The patient has a thick neck. No JVD apparent. Resp Effort & Inspection: normal respiratory effort Auscultation: clear to auscultation bilaterally GI Other: The abdomen is soft and nontender. Skin Other: The skin is dry and unremarkable Neuro General: patient oriented x3, tone normal, moves all extremities, no focal motor deficits and CN's II-XI intact bilaterally Extrem Other: There is no calf swelling or tenderness. No asymmetry. No peripheral edema. Course Reevaluation(s) Reevaluation #1: I, Dr. Medeiros have take over the care of this patient, I reviewed pertinent blood work and imaging, re-evaluated the patient when appropriate. Patient received 68 units of Lantus insulin approximately around 22:00 instead of her regular 14 units, has been monitored in the ER has been eating has not had any hypoglycemic effects, no alteration in mentation, Lantus has a peak affecting 12 hours we will monitor until 10:00 in the morning if he is still doing well anticipating discharge and then resuming regular dosage of Lantus tonight Time: 07:42 Medical Decision Making Medical Decision Making MDM Narrative: The patient is a 69-year-old female who was brought to the hospital by ambulance after her ASSOCIATE AUTOMATION ENGINEER realized that she had mistakenly given her a larger than usual Lantus dose. The patient normally takes 14 units of Lantus at bedtime. The ASSOCIATE AUTOMATION ENGINEER accidentally administered 68 units of Lantus. The patient arrives without any complaints. She is asymptomatic. Given this significantly larger dose of Lantus insulin than she is accustomed to she has been observed in the emergency room getting frequent point of care blood sugar testing. The patient has also been encouraged to eat food to prevent hypoglycemia. Throughout the overnight shift the patient has had multiple points of care glucose tests none of which have been significantly hypoglycemic. At this point it is a proximally 10 hours since the administration of the Lantus insulin. We will watch her in the emergency room for a few more hours. I will sign the patient out to my colleague at change of shift. Lab Data 05/16/25 21:49 05/16/25 21:49 Labs: Lab Results 05/16/25 05/16/25 05/16/25 Range/Units 21:27 21:49 22:34 WBC 9.5 (4.8-10.8) X10*3/uL RBC 3.50 L (4.20-5.50) X10*6/uL Hgb 10.5 L (12.0-16.0) g/dl Hct 32.4 L (37.0-47.0) % MCV 92.6 (80.0-98.0) fL MCH 30.0 (27.0-33.0) pg MCHC 32.4 (31.0-35.0) g/dl RDW 12.6 (11.0-16.0) % Plt Count 283 (160-400) X10*3/uL MPV 10.0 (9.4-12.3) fL Immature Gran % (Auto) 0.2 (0.0-0.4) % Neut % (Auto) 62.4 (45-73) % Lymph % (Auto) 27.1 (20-40) % [place] % (Auto) 7.3 (2-11) % Eos % (Auto) 2.7 (0-4) % Baso % (Auto) 0.3 (0-2) % Lymph # (Auto) 2.6 (1.2-4.9) X10*3/uL [place] # (Auto) 0.7 (0.1-1.2) X10*3/uL Eos # (Auto) 0.3 (0.0-0.4) X10*3/uL Baso # (Auto) 0.0 (0.0-0.2) X10*3/uL Abs Immat Gran (auto) 0.02 (0.00-0.03) X10*3/uL Absolute Neuts (auto) 5.9 (2.0-8.3) x10*3/uL Absolute Nucleated RBC 0.000 (0.0-0.012) X10*3/uL Nucleated RBC % (auto) 0.0 (0.0-0.2) /100WBC Sodium 139 (135-145) mmol/L Potassium 4.6 D (3.3-5.1) mmol/L Chloride 104 (96-108) mmol/L Carbon Dioxide 26 (22-29) mmol/L Anion Gap 14 (12-20) BUN 35 H (9-16) mg/dL Creatinine 1.27 (0.5-1.4) mg/dL Estim Creat Clear Calc 39.4 Estimated GFR 42 POC Glucose 235 H 179 H (60-115) mg/dL Random Glucose 225 H (60-115) mg/dL Calcium 8.9 (8.4-10.2) mg/dL Total Bilirubin 0.2 (0.0-1.0) mg/dL AST 19 (5-31) U/L ALT 17 (0-31) U/L Alkaline Phosphatase 96 (39-117) U/L Total Protein 6.4 L (6.5-8.0) g/dL Albumin 3.8 (3.5-5.0) g/dL 05/16/25 05/17/25 05/17/25 Range/Units 23:50 00:51 02:06 WBC (4.8-10.8) X10*3/uL RBC (4.20-5.50) X10*6/uL Hgb (12.0-16.0) g/dl Hct (37.0-47.0) % MCV (80.0-98.0) fL MCH (27.0-33.0) pg MCHC (31.0-35.0) g/dl RDW (11.0-16.0) % Plt Count (160-400) X10*3/uL MPV (9.4-12.3) fL Immature Gran % (Auto) (0.0-0.4) % Neut % (Auto) (45-73) % Lymph % (Auto) (20-40) % [place] % (Auto) (2-11) % Eos % (Auto) (0-4) % Baso % (Auto) (0-2) % Lymph # (Auto) (1.2-4.9) X10*3/uL [place] # (Auto) (0.1-1.2) X10*3/uL Eos # (Auto) (0.0-0.4) X10*3/uL Baso # (Auto) (0.0-0.2) X10*3/uL Abs Immat Gran (auto) (0.00-0.03) X10*3/uL Absolute Neuts (auto) (2.0-8.3) x10*3/uL Absolute Nucleated RBC (0.0-0.012) X10*3/uL Nucleated RBC % (auto) (0.0-0.2) /100WBC Sodium (135-145) mmol/L Potassium (3.3-5.1) mmol/L Chloride (96-108) mmol/L Carbon Dioxide (22-29) mmol/L Anion Gap (12-20) BUN (9-16) mg/dL Creatinine (0.5-1.4) mg/dL Estim Creat Clear Calc Estimated GFR POC Glucose 170 H 223 H 213 H (60-115) mg/dL Random Glucose (60-115) mg/dL Calcium (8.4-10.2) mg/dL Total Bilirubin (0.0-1.0) mg/dL AST (5-31) U/L ALT (0-31) U/L Alkaline Phosphatase (39-117) U/L Total Protein (6.5-8.0) g/dL Albumin (3.5-5.0) g/dL 05/17/25 05/17/25 05/17/25 Range/Units 03:20 04:27 05:18 WBC (4.8-10.8) X10*3/uL RBC (4.20-5.50) X10*6/uL Hgb (12.0-16.0) g/dl Hct (37.0-47.0) % MCV (80.0-98.0) fL MCH (27.0-33.0) pg MCHC (31.0-35.0) g/dl RDW (11.0-16.0) % Plt Count (160-400) X10*3/uL MPV (9.4-12.3) fL Immature Gran % (Auto) (0.0-0.4) % Neut % (Auto) (45-73) % Lymph % (Auto) (20-40) % [place] % (Auto) (2-11) % Eos % (Auto) (0-4) % Baso % (Auto) (0-2) % Lymph # (Auto) (1.2-4.9) X10*3/uL [place] # (Auto) (0.1-1.2) X10*3/uL Eos # (Auto) (0.0-0.4) X10*3/uL Baso # (Auto) (0.0-0.2) X10*3/uL Abs Immat Gran (auto) (0.00-0.03) X10*3/uL Absolute Neuts (auto) (2.0-8.3) x10*3/uL Absolute Nucleated RBC (0.0-0.012) X10*3/uL Nucleated RBC % (auto) (0.0-0.2) /100WBC Sodium (135-145) mmol/L Potassium (3.3-5.1) mmol/L Chloride (96-108) mmol/L Carbon Dioxide (22-29) mmol/L Anion Gap (12-20) BUN (9-16) mg/dL Creatinine (0.5-1.4) mg/dL Estim Creat Clear Calc Estimated GFR POC Glucose 209 H 156 H 120 H (60-115) mg/dL Random Glucose (60-115) mg/dL Calcium (8.4-10.2) mg/dL Total Bilirubin (0.0-1.0) mg/dL AST (5-31) U/L ALT (0-31) U/L Alkaline Phosphatase (39-117) U/L Total Protein (6.5-8.0) g/dL Albumin (3.5-5.0) g/dL 05/17/25 05/17/25 05/17/25 Range/Units 06:14 07:26 10:55 WBC (4.8-10.8) X10*3/uL RBC (4.20-5.50) X10*6/uL Hgb (12.0-16.0) g/dl Hct (37.0-47.0) % MCV (80.0-98.0) fL MCH (27.0-33.0) pg MCHC (31.0-35.0) g/dl RDW (11.0-16.0) % Plt Count (160-400) X10*3/uL MPV (9.4-12.3) fL Immature Gran % (Auto) (0.0-0.4) % Neut % (Auto) (45-73) % Lymph % (Auto) (20-40) % [place] % (Auto) (2-11) % Eos % (Auto) (0-4) % Baso % (Auto) (0-2) % Lymph # (Auto) (1.2-4.9) X10*3/uL [place] # (Auto) (0.1-1.2) X10*3/uL Eos # (Auto) (0.0-0.4) X10*3/uL Baso # (Auto) (0.0-0.2) X10*3/uL Abs Immat Gran (auto) (0.00-0.03) X10*3/uL Absolute Neuts (auto) (2.0-8.3) x10*3/uL Absolute Nucleated RBC (0.0-0.012) X10*3/uL Nucleated RBC % (auto) (0.0-0.2) /100WBC Sodium (135-145) mmol/L Potassium (3.3-5.1) mmol/L Chloride (96-108) mmol/L Carbon Dioxide (22-29) mmol/L Anion Gap (12-20) BUN (9-16) mg/dL Creatinine (0.5-1.4) mg/dL Estim Creat Clear Calc Estimated GFR POC Glucose 151 H 233 H 161 H (60-115) mg/dL Random Glucose (60-115) mg/dL Calcium (8.4-10.2) mg/dL Total Bilirubin (0.0-1.0) mg/dL AST (5-31) U/L ALT (0-31) U/L Alkaline Phosphatase (39-117) U/L Total Protein (6.5-8.0) g/dL Albumin (3.5-5.0) g/dL Discharge Plan Discharge Clinical Impression: Accidental overdose of insulin Patient Disposition: Home, Self-Care Additional Instructions: Patient monitored in the emergency department for 12 hours, make sure she is eating on regular basis throughout the day complex meals so not just sugary stuff, has not been hypoglycemic, you can resume her regular Lantus before bedtime Worsening issues or concerns such as inability to eat or drink, weakness not resolving with orange juice, if her sugars start dropping below 60 come back to the ER Prescriptions: No Action cyanocobalamin (vitamin B-12) [Vitamin B-12] 1,000 mcg Tablet 1,000 mcg PO DAILY ascorbic acid (vitamin C) [Vitamin C] 500 mg Tablet 500 mg PO DAILY ferrous sulfate 325 mg (65 mg iron) Tablet 325 mg PO DAILY omeprazole 20 mg Capsule,Delayed Release(Dr/Ec) 20 mg PO DAILY docusate sodium [Colace] 100 mg Capsule 100 mg PO DAILY PRN (Reason: Constipation) donepezil 5 mg tablet 5 mg PO BEDTIME atorvastatin 40 mg tablet 40 mg PO BEDTIME aspirin 81 mg tablet,delayed release (DR/EC) 81 mg PO DAILY insulin glargine [Lantus Solostar U-100 Insulin] 100 unit/mL (3 mL) Insulin Pen 14 unit SUBCUT BEDTIME 30 Days Qty: 0 0RF (DME) blood-glucose meter [Gluco Navii Glucose Monitor] Kit See Rx Instructions .Route Qty: 1 0RF Rx Instructions: As directed (DME) Gluco Navii Test Strip Strip See Rx Instructions .Route Qty: 50 0RF Rx Instructions: As directed (DME) lancets Misc See Rx Instructions .Route Qty: 100 0RF Rx Instructions: As directed nystatin 100,000 unit/gram powder 1 appl topical TID 14 Days Qty: 30 0RF cholecalciferol (vitamin D3) [Vitamin D3] 50 mcg (2,000 unit) capsule 50 mcg PO DAILY escitalopram oxalate 20 mg tablet 20 mg PO DAILY amlodipine 10 mg tablet 10 mg PO DAILY carvedilol 25 mg tablet 25 mg PO BID Rx Instructions: must administer with a meal/food folic acid 1 mg tablet 1 mg PO DAILY furosemide 20 mg tablet 20 mg PO DAILY gabapentin 300 mg capsule 300 mg PO BEDTIME metformin 1,000 mg tablet 1,000 mg PO BID Print Language: Citizen [place]
[2025-05-16 21:55] LABS: Hematocrit 32.4 % (37.0-47.0); Hemoglobin 10.5 g/dl (12.0-16.0); Imm Gran Abs Auto 0.02 X10*3/uL (0.00-0.03); Imm Gran Pct Auto 0.2 % (0.0-0.4); Lymphocytes Absolute Auto 2.6 X10*3/uL (1.2-4.9); MANUAL DIFF FLAG NO; Mean Corpuscular HGB Conc 32.4 g/dl (31.0-35.0); Mean Corpuscular Hemoglobin 30.0 pg (27.0-33.0); Mean Corpuscular Volume 92.6 fL (80.0-98.0); NRBC Abs Auto 0.000 X10*3/uL (0.0-0.012); NRBC Pct Auto 0.0 /100WBC (0.0-0.2); Platelet Count 283 X10*3/uL (160-400); Red Blood Count 3.50 X10*6/uL (4.20-5.50); White Blood Count 9.5 X10*3/uL (4.8-10.8)
[2025-05-16 22:10] LABS: Alanine Aminotransferase 17 U/L (0-31); Albumin Level 3.8 g/dL (3.5-5.0); Alkaline Phosphatase 96 U/L (39-117); Anion Gap 14 (12-20); Aspartate Amino Transferase 19 U/L (5-31); Blood Urea Nitrogen 35 mg/dL (9-16); Calcium 8.9 mg/dL (8.4-10.2); Carbon Dioxide 26 mmol/L (22-29); Chloride 104 mmol/L (96-108); Creatinine Clr Calc Pharmacy 39.4; Estimated Glomerular Filt Rate 42; Potassium 4.6 mmol/L (3.3-5.1); Sodium 139 mmol/L (135-145); Total Protein 6.4 g/dL (6.5-8.0)
[2025-05-16 22:39] LABS: Glucose, Whole Blood 179 mg/dL (60-115)
[2025-05-16 23:55] LABS: Glucose, Whole Blood 170 mg/dL (60-115)
[2025-05-17 00:54] LABS: Glucose, Whole Blood 223 mg/dL (60-115)
[2025-05-17 02:07] VITALS: BP 116/35; PULSE 60; RESP 17; O2SAT 96
[2025-05-17 02:09] LABS: Glucose, Whole Blood 213 mg/dL (60-115)
[2025-05-17 03:23] LABS: Glucose, Whole Blood 209 mg/dL (60-115)
[2025-05-17 04:31] LABS: Glucose, Whole Blood 156 mg/dL (60-115)
[2025-05-17 05:21] LABS: Glucose, Whole Blood 120 mg/dL (60-115)
--- NOTE | 2025-05-17 05:23 | PC.NURSE ---
Tor aware of POC. food and juice given.
[2025-05-17 06:19] LABS: Glucose, Whole Blood 151 mg/dL (60-115)
[2025-05-17 06:41] VITALS: BP 132/38; PULSE 58; RESP 18; TEMP 36.5; O2SAT 97
[2025-05-17 07:29] LABS: Glucose, Whole Blood 233 mg/dL (60-115)
--- NOTE | 2025-05-17 08:15 | PC.NURSE ---
patient sitting up and eating breakfast at this time
[2025-05-17 10:58] LABS: Glucose, Whole Blood 161 mg/dL (60-115)
[2025-05-17 11:28] VITALS: BP 128/46; PULSE 59; RESP 16; TEMP 36.5; O2SAT 97
== END 2025-05-17 12:05 | disposition home or self-care (01) ==
PROVIDERS: Emergency Provider Emergency Medicine; PCP Internal Medicine
DX: T38.3X1A Poisoning by insulin and oral hypoglycemic [antidiabetic] drugs, accidental (unintentional), initial encounter (principal); Y92.098 Other place in other non-institutional residence as the place of occurrence of the external cause; E11.9 Type 2 diabetes mellitus without complications; I13.0 Hypertensive heart and chronic kidney disease with heart failure and stage 1 through stage 4 chronic kidney disease, or unspecified chronic kidney disease; I50.9 Heart failure, unspecified; N18.9 Chronic kidney disease, unspecified; E11.22 Type 2 diabetes mellitus with diabetic chronic kidney disease; Z86.73 Personal history of transient ischemic attack (TIA), and cerebral infarction without residual deficits; Z79.899 Other long term (current) drug therapy
CPT/HCPCS: 36415; 80053; 82947; 85025; 99284